=== PATIENT | male | born 1935 | race Caucasian/White ===

== ENCOUNTER → 2017-04-03 12:00 | Outpatient (CLI) | payer MEDICARE, SELFPAY ==
[2017-04-03] MEDS: 0.9% Normal Saline 1,000 ML 999 ML IV ×2 (12:17→13:27)
[2017-04-03 12:37] VITALS: BP 132/89; PULSE 62; RESP 18; TEMP 36.8; O2SAT 95; BMI 21.7
== END ==
PROVIDERS: Family Provider Family Medicine Geriatric Medicine; PCP Family Medicine Geriatric Medicine; Visit Provider Family Medicine Geriatric Medicine
DX: E86.0 Dehydration (principal); I95.1 Orthostatic hypotension; R82.99 Other abnormal findings in urine
CPT/HCPCS: 96360; 96361; 87086; J7030; A4216

== ENCOUNTER → 2017-04-29 09:00 | Outpatient (CLI) | payer MEDICARE, SELFPAY | PROVIDERS: Family Provider Family Medicine Geriatric Medicine; PCP Family Medicine Geriatric Medicine; Visit Provider Surgery | DX: Z01.818 Encounter for other preprocedural examination (principal); E07.9 Disorder of thyroid, unspecified ==

== ENCOUNTER 2017-05-13 11:00 | Outpatient (RCR) | payer MEDICARE, SELFPAY ==
--- NOTE | 2017-04-20 09:04 | HP.PTEVAL ---
Patient's Visit Information KAELYN CONTRERAS is a 81 year old M referred to Physical Therapy by Gerson NYE with a diagnosis of Gait difficulty, R foot drop. Date of Evaluation: 04/15/17 Physical Therapist: Corona Galo - Visit Plan Frequency: 2-3x /Week Duration: 4 Weeks Plan: Start with static/dynamic balance progressions, functional strengthening of BLEs. Anterior tib strengthening with quick stretch, possible use of FES to activate anterior tib. - Subjective Subjective: Pt. is here today for his initial evaluation with diagnosis of gait difficulty and R foot drop. Pt. is a plesant 81 y.o. male who reports falling backwars down his stairs at his [place] in [place]. Pt. reports having occassional R sided LBP, but minimal. Pt. has reported having 3 falls in the past 2 months, I did not get hurt though. Pt. does not ambulate with an AD. Pt. reports noticing increased R foot drop, but reports it has been getting worse over the past 3-4 years. Pt. continues to belong to [employer] and does walking/cardio equipment. Pt. is concerned about increased falls and would like to work on improving balance. Pt. denies N/T in either LE, but has marked weakness in his R anterior tibialis. - Pain R sided lumbar spine Pain Intensity (Out of 10): 2 Pain Intensity Range: 0, 3 - Objective POSTURE: Pt. has generalized flexed posture in stance. Pt. has equal wt.shift in stance. Pt. had reduced lumbar lordosis, equal iliac crest heights. PALPATION: Pt. has mild increase in symptoms of R side of his lumbar spine, minimal. Pt. has no symptoms with rest of palpation. NEUROLOGICAL: Pt. reports normal sensation to light and sharp touch throughout bilateral LEs. Pt. has 2+ bilat achilles DTR, unable to elicit R achilles DTR, 2+ L achilles DTR. Pt. is able to rise on toes with balance aide, unable to complete DF with RLE for wt. shifting to heels. ROM: LUMBAR SPINE: flexion min loss NE, ext mod loss NE, SB min/mod loss bilat NE, rotation min/mod loss NE bilat. Pt. has tight HS bilaterally, tight hip flexor bilaterally. Normal hip ROM throughout. MMT: LLE- ankle 5/5 throughout; knee- 5/5 throughout; hip- flexion 4+/5, and 4/5, ext 4+/5. RLE_ PF 4+/5, DF 1/5 (no activitation with tapping or FES); knee- ext 4+/5, flexion 4+/5; hip- flexion 4/5, abd 4/5, ext 4/5. Core strength- poor. GAIT: Pt. ambulates without AD. He has marked weakness with controlled foot during rocker moment from heel strike to flat foot on R side, no issues with L side. Pt. has proper foot clearance , but has exaggerated hip flexion to compensate. Pt. has flexed posture throughout. Decreased step length and methodically with pattern. STAIRS: Pt. completes with 2 HR with reciprocal pattern, but has marked functional weakness with descending. - Special Tests L/S Slump test left side: Negative L/S Slump test right side: Negative L/S Left Straight Leg Raise: Negative L/S Right Straight Leg Raise: Negative Lumbar Standing: Flexion - Mechanical Response: No effect Lumbar Standing: Flexion - Symptoms During Testing: No effect Lumbar Standing: Flexion - Symptoms After Testing: No effect Lumbar Standing: Extension - Mechanical Response: No effect Lumbar Standing: Extension - Symptoms During Testing: No effect Lumbar Standing: Extension - Symptoms After Testing: No effect Lumbar Standing: Right Side Glides - Mechanical Response: No effect Lumbar Standing: Right Side [place] - Symptoms During Testing: No effect Lumbar Standing: Right Side [place] - Symptoms After Testing: No effect Lumbar Standing: Left Side [place] - Mechanical Response: No effect Lumbar Standing: Left Side [place] - Symptoms During Testing: No effect Lumbar Standing: Left Side [place] - Symptoms After Testing: No effect - Balance Scores Functional Gait Assessment Score: 13 % Disability: 56.6700 CATSIB Score (Max score 120 seconds): 39 - Goals Goal 1:: Pt. to be I with HEP. Goal Time Frame: 4-6 Weeks Goal 2:: Pt. to have increased R anterior tib MMT to 3/5 to reduce risk for catching foot with gait. Goal Time Frame: 4-6 Weeks Goal 3:: Pt. to have increased BLE strength by 1/2 grade of all effected musculature to increase stability with all functional mobility. Goal Time Frame: 4-6 Weeks Goal 4:: Pt. to ambulate unlimited distances without LOB without use of AD allowing for increasd stability with all fucntional mobility. Goal Time Frame: 4-6 Weeks Goal 5:: Pt. to have improved FGA to 21/30 indicating reduced risk for future falls. - Rehabilitation Potential Physical Therapy Diagnosis: Pt. has signs and symptoms of gait difficulty and distal RLE weakness resulting in R foot drop. Pt. reports increased falls over the past 3-4 months and has increased weakness in R foot. He would benefit from PT to increase stability with gait and improve stability during dyanmic and static balance. Pt. may need an AFO of R foot/ankle to improve foot clearanc with gait, pt. declined at this point in time. Rehabilitation Potential: Good - Anticipated Interventions Patient/Client Instruction: Educate patient on: Condition, Plan of Care, Risk Factors, Benefits of Fitness Program For the Purpose of:: To improve health and function, To foster healthy habits, To improve decision making, To facilitate caregiver knowledge, To improve self management, To prevent re-injury, To improve ability to perform tasks related to life management, To improve tolerance to ADL's Therapeutic Exercise to Include: Strength training, Power training, Endurance training, Balance training, Postural training, Flexibilty training, Gait and locomotor training, Passive ROM, Active ROM For the Purpose of:: To decrease pain, To decrease swelling/inflammation, To increase ROM, To improve nutrient delivery to tissue, To increase oxygenation perfusion, To improve muscle performance and motor function, To improve ability to perform ADL's, To increase tolerance to activity/condition/position, To improve performance and independence with ADL's, To improve gait and locomotor functions, To improve health of tissue, To decrease soft tissue restriction, To increase flexibility/ROM, To improve endurance, To improve balance, To improve safety with gait Other electric stimulation: Yes - FES/sri lankan to ant tib For the Purpose of:: To improve health of tissue, Other Other: promote muscle activation Thank you for the opportunity to evaluate your patient. For Medicare and Medicare HMO plans, please review the plan of care and approve it. It will need to be FAXED BACK to us at [phone] for Medicare purposes. Please let me know if there are questions or concerns regarding this plan of care. Physician Signature: Date:
--- NOTE | 2017-05-18 12:53 | HP.PTREVAL_ITS ---
Gerson Jorgensen DR.[email or web address] It has been my pleasure to treat KAELYN CONTRERAS over the last 9 visits for Gait difficulty, R foot drop. Please see the progress note below for an update on the physical therapy plan of care! Subjective: Pt. reports I am doing pretty well. Pt. reports no falls since starting PT. Pt. reprots increased mobility with active DF while sitting. Pt. reports constant R sided LBP that gets worse at times, but it is not too bad. Pt. reports being HEP compliant at home. Objective/Function: Pt. is able to ambulate independently. Pt. does have noticeable decreased control with R DF, but has imrpoved, regresses with fatigue. Pt. reprots being compliant with all exercises at home. FGA- 18/30- difficulty with eyes closed. RLE- ankle- DF 3/5, PF 4+/5; knee- ext 5-/5, flexion 5-/5; hip- flexion 4/5, abd 4/5, ext 4+/5. LLE- ankle 5/5 throughout; knee- ext 5/5, flexion 5/5; hip- flexion 4/5, abd 4/5, ext 4+/5. Core strength - Poor+. Pt. contiunes to have flexed posture with gait and stnaidng with R lateral lean. Pt. has improved balance, but contiunes to have difficulty with controlling R ankld DF with walking. Plan Plan: Pt. to trial exercises on own for 1-2 weeks to determin if he is able to self manage. Pt. to follow up with PT if unable. Pt. consents. Goals Goal 1:: Pt. to be I with HEP. Goal Time Frame: 4-6 Weeks Goal Progress: Goal Met Goal 2:: Pt. to have increased R anterior tib MMT to 3/5 to reduce risk for catching foot with gait. Goal Time Frame: 4-6 Weeks Goal Progress: Goal Met Goal 3:: Pt. to have increased BLE strength by 1/2 grade of all effected musculature to increase stability with all functional mobility. Goal Time Frame: 4-6 Weeks Goal Progress: Goal Met Goal 4:: Pt. to ambulate unlimited distances without LOB without use of AD allowing for increasd stability with all fucntional mobility. Goal Time Frame: 4-6 Weeks Goal Progress: Goal Met Goal 5:: Pt. to have improved FGA to 21 indicating reduced risk for future falls. Goal Progress: Progressing Anticipated Interventions Patient/Client Instruction: Educate patient on: Condition, Plan of Care, Risk Factors, Benefits of Fitness Program For the Purpose of:: To improve health and function, To foster healthy habits, To improve decision making, To facilitate caregiver knowledge, To improve self management, To prevent re-injury, To improve ability to perform tasks related to life management, To improve tolerance to ADL's Therapeutic Exercise to Include: Strength training, Power training, Endurance training, Balance training, Postural training, Flexibilty training, Gait and locomotor training, Passive ROM, Active ROM For the Purpose of:: To decrease pain, To decrease swelling/inflammation, To increase ROM, To improve nutrient delivery to tissue, To increase oxygenation perfusion, To improve muscle performance and motor function, To improve ability to perform ADL's, To increase tolerance to activity/condition/position, To improve performance and independence with ADL's, To improve gait and locomotor functions, To improve health of tissue, To decrease soft tissue restriction, To increase flexibility/ROM, To improve endurance, To improve balance, To improve safety with gait Other electric stimulation: Yes - FES/maldivian to ant tib For the Purpose of:: To improve health of tissue, Other Other: promote muscle activation Please do not hesitate to contact me at [phone] by phone or Fax: if you have questions or concerns regarding this new plan of care! Sincerely, Corona Galo
--- NOTE | 2017-10-06 07:50 | HP.PT.NRP ---
HP - Discharge Summary (1) - Patient Information KAELYN CONTRERAS was seen in my office for initial evaluation on 04/15/17. The following Plan of Care was established for this patient: Initial Frequency: 2-3x /Week Initial Duration: 4 Weeks - Anticipated Interventions Patient/Client Instruction: Educate patient on: Condition, Plan of Care, Risk Factors, Benefits of Fitness Program For the Purpose of:: To improve health and function, To foster healthy habits, To improve decision making, To facilitate caregiver knowledge, To improve self management, To prevent re-injury, To improve ability to perform tasks related to life management, To improve tolerance to ADL's Therapeutic Exercise to Include: Strength training, Power training, Endurance training, Balance training, Postural training, Flexibilty training, Gait and locomotor training, Passive ROM, Active ROM For the Purpose of:: To decrease pain, To decrease swelling/inflammation, To increase ROM, To improve nutrient delivery to tissue, To increase oxygenation perfusion, To improve muscle performance and motor function, To improve ability to perform ADL's, To increase tolerance to activity/condition/position, To improve performance and independence with ADL's, To improve gait and locomotor functions, To improve health of tissue, To decrease soft tissue restriction, To increase flexibility/ROM, To improve endurance, To improve balance, To improve safety with gait Other electric stimulation: Yes - FES/lao to ant tib For the Purpose of:: To improve health of tissue, Other Other: promote muscle activation This patient was last seen in our office 05/13/17. Pertinent comments regarding their Physical therapy will appear below: Pt. was seen for his gait difficulty in PT. Pt. 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 Pt. progressed with ankle strengthening and balance activities. He was to trial on own for 1-2 weeks and follow up with PT if needed. Pt. has not returned to PT at this point in time and will be DC from PT. At this point I will be discontinuing this patient from physical therapy. I would be happy to see this patient again in the future if found appropriate by the physician. Thank you! Corona Galo
== END 2017-05-13 19:00 | disposition home or self-care (01) ==
LOC: PT 11:00
PROVIDERS: Family Provider Family Medicine Geriatric Medicine; PCP Family Medicine Geriatric Medicine; Visit Provider Family Medicine Geriatric Medicine
DX: M21.379 Foot drop, unspecified foot (principal); R26.9 Unspecified abnormalities of gait and mobility
CPT/HCPCS: 97110; 97162

== ENCOUNTER → 2017-05-18 15:13 | Outpatient (CLI) | payer MEDICARE, SELFPAY ==
--- NOTE | 2017-05-18 16:39 | RAD_ITS ---
STUDY: X-RAY - ABDOMEN/PELVIS REASON FOR EXAM: Male, 82 years old. Pain TECHNIQUE: Single AP view of the abdomen / pelvis. COMPARISON: None. FINDINGS: Normal visualized lung bases. There is a moderate amount of colonic fecal material. There is no demonstrated free abdominal air. The visualized liver, spleen and kidneys are grossly normal in size and morphology. Degenerative findings of the hips. Normal soft tissue structures. Normal visualized osseous structures. RAD/Abdomen Single View IMPRESSION: Constipation. Electronically Signed: Law Cho MD at 17:41 EDT , Service support ,
--- NOTE | 2017-05-18 16:45 | RAD_ITS ---
STUDY: X-RAY CHEST REASON FOR EXAM: Male, 82 years old. COUGH TECHNIQUE: Frontal and lateral views of the chest. COMPARISON: 02.17.17 FINDINGS: Chronic appearing increased interstitial lung markings. There is no demonstrated pleural abnormality. Normal heart size. Normal mediastinum and leann. Normal visualized pulmonary arteries. There is atherosclerotic calcification of the aortic arch with tortuosity. There are diffuse degenerative changes of the visualized thoracic spine. There is degenerative osteoarthritis of the bilateral shoulders. There is no demonstrated abnormality of the visualized soft tissue structures of the upper abdomen. RAD/Chest PA and Lateral IMPRESSION: There are no acute findings. Electronically Signed: Law Cho MD at 17:37 EDT , Service support ,
[2017-05-18 17:22] LABS: Absolute Lymphocyte Count 1.09 X10^3/ul (0.83-4.51); Absolute Neutrophil Count 7.2 X10^3/uL (2.0-7.7); Basophil# 0.01 X10^3/uL; Basophil% 0.1 % (0-1); Hematocrit 35.6 % (40-54); Hemoglobin 11.4 g/dl (13.0-16.5); Lymphocyte # 1.09 X10^3/ul (4.0); Lymphocyte % 11.9 % (19-41); Mean Corpuscular Hgb 31.6 pg (27.0-32.0); Mean Corpuscular Volume 98.6 fL (80-94); Mean Platelet Vol. 11.7 fl (6.2-12.0); Monocyte# 0.88 X10^3/uL; Monocyte% 9.6 % (0-10); Neutrophil # 7.18 X10^3/uL (2.7-7.7); Neutrophil % 78.2 % (47-70); Platelet Count 115 K/mm3 (150-450); RBC Distribution Width CV 15.7 % (11.6-14.6); RBC Distribution Width SD 54.4 fl (35.1-43.9); Red Blood Count 3.61 M/mm3 (4.6-6.2); White Blood Count 9.2 K/mm3 (4.4-11.0)
[2017-05-18 17:26] LABS: POSITIVE COUNT NO; POSITIVE DIFFERENTIAL NO; POSITIVE MORPHOLOGY NO
[2017-05-18 17:50] LABS: AST(SGOT) 16 U/L (15-37); Alanine Aminotransfer ALT/SGPT 14 U/L (16-61); Alkaline Phosphatase 96 U/L (45-117); Anion Gap 8 (5-15); BUN 20 mg/dL (7-18); BUN/Creat Ratio 15.7 RATIO (10-20); Calcium,Total 8.4 mg/dL (8.5-10.1); Chloride 102 mmol/L (98-107); Creatinine, Serum 1.27 mg/dL (0.70-1.30); EST Glomerular Filtration Rate 58 mL/min (>60); Est Glom Filt Rate - Afr Amer 70 mL/min (>60); Globulin 3.1 g/dL (2.2-4.2); Glucose 101 mg/dL (74-106); Protein, Total 6.1 g/dL (6.4-8.2); Sodium Level 139 mmol/L (136-145)
== END ==
PROVIDERS: Family Provider Family Medicine Geriatric Medicine; PCP Family Medicine Geriatric Medicine; Visit Provider Family Medicine Geriatric Medicine
DX: R10.9 Unspecified abdominal pain (principal); R05 Cough; N39.0 Urinary tract infection, site not specified; R53.83 Other fatigue
CPT/HCPCS: 36415; 71046; 74018; 80053; 85025; 87086; 87088

== ENCOUNTER → 2017-05-20 06:43 | Outpatient (CLI) | payer MEDICARE, SELFPAY ==
--- NOTE | 2017-05-20 17:11 | STRESSREP ---
Stress Test Report Pharmacologic myocardial perfusion stress test. 82-year-old with a history of chest pain. Stress protocol: Normal sinus rhythm with a rate of 83 bpm premature atrial complexes noted resting blood pressure is 126/72 meters of mercury. 0.4 mg of adenosine was infused per usual protocol followed by rapid intravenous saline flush injection continuous EKG monitoring was performed. The maximum heart rate attained was 97 bpm which was 70% of maximum predicted heart rate the maximum workload attained was 1 metabolic equivalent. At rest there were no ST or T-wave changes noted to suggest abnormal flow reserve at peak infusion no ST or T-wave changes were noted suggest abnormal flow reserve. No clinical angina was noted. Myocardial perfusion protocol. 11.1 mCi of technetium 99m sestamibi was injected at rest. 0.4 mg regadenoson was infused per usual protocol. At peak infusion 35.0 mCi of technetium 99m sestamibi was injected. Stress images were obtained stress and rest images were reconstructed and compared in the short axis vertical long and horizontal long axis. Gated images were also obtained. Perfusion SPECT analysis: Review of the stress images demonstrate normal uptake of tracer noted in all areas of the myocardium except for small portion of the inferior wall with GI attenuation artifact. The resting images demonstrate a similar patent. No obvious reversibility is noted suggest ischemia. No previous infarct is noted. Gated SPECT analysis: The gated ejection fraction is 47%. Conclusion: Normal pharmacologic myocardial perfusion stress test. Low normal ejection fraction.
== END ==
PROVIDERS: Family Provider Family Medicine Geriatric Medicine; PCP Family Medicine Geriatric Medicine; Visit Provider Nurse Practitioner Family
DX: Z01.818 Encounter for other preprocedural examination (principal); I71.2 Thoracic aortic aneurysm, without rupture; I48.0 Paroxysmal atrial fibrillation; I10 Essential (primary) hypertension; E78.5 Hyperlipidemia, unspecified; R74.8 Abnormal levels of other serum enzymes; R94.31 Abnormal electrocardiogram [ECG] [EKG]
CPT/HCPCS: 78452; 93017; A9500; A4216; J2785

== ENCOUNTER → 2017-05-25 16:05 | Outpatient (CLI) | payer MEDICARE, SELFPAY ==
--- NOTE | 2017-05-25 16:21 | RAD_ITS ---
STUDY: X-RAY CHEST REASON FOR EXAM: Male, 82 years old. Cough and shortness of breath. TECHNIQUE: Frontal and lateral views of the chest. COMPARISON: 05/18/2017. FINDINGS: The lungs are hyperexpanded. There are coarsened interstitial markings suggestive of mild chronic fibrosis. No gross focal infiltrates. No gross effusions. Normal size heart. Normal mediastinum and leann. Normal visualized pulmonary arteries. There is atherosclerotic tortuosity of the aortic arch and descending thoracic aorta. There are diffuse degenerative changes of the visualized thoracic spine. Normal visualized ribs, clavicles, and shoulders. There is no demonstrated abnormality of the visualized soft tissue structures of the upper abdomen. RAD/Chest PA and Lateral IMPRESSION: There are findings consistent with COPD. There is no evidence of acute chest disease. Electronically Signed: Benito Dale MD at 10:44 EDT , Service support ,
[2017-05-25 17:13] LABS: Anion Gap 8 (5-15); BUN 19 mg/dL (7-18); BUN/Creat Ratio 15.1 RATIO (10-20); Calcium,Total 7.6 mg/dL (8.5-10.1); Chloride 102 mmol/L (98-107); Creatinine, Serum 1.26 mg/dL (0.70-1.30); EST Glomerular Filtration Rate 58 mL/min (>60); Est Glom Filt Rate - Afr Amer 71 mL/min (>60); Glucose 106 mg/dL (74-106); Potassium 3.6 mmol/L (3.5-5.1); Sodium Level 138 mmol/L (136-145)
[2017-05-25 17:23] LABS: Absolute Lymphocyte Count 0.48 X10^3/ul (0.83-4.51); Absolute Neutrophil Count 5.2 X10^3/uL (2.0-7.7); Basophil# 0.01 X10^3/uL; Basophil% 0.2 % (0-1); Hemoglobin 10.8 g/dl (13.0-16.5); Lymphocyte # 0.48 X10^3/ul (4.0); Lymphocyte % 7.9 % (19-41); Mean Corp Hgb Conc 31.8 g/gl (32-36); Mean Corpuscular Hgb 30.3 pg (27.0-32.0); Mean Corpuscular Volume 95.5 fL (80-94); Mean Platelet Vol. 10.6 fl (6.2-12.0); Monocyte# 0.39 X10^3/uL; Monocyte% 6.4 % (0-10); Neutrophil # 5.22 X10^3/uL (2.7-7.7); Neutrophil % 85.3 % (47-70); Platelet Count 145 K/mm3 (150-450); RBC Distribution Width CV 15.5 % (11.6-14.6); RBC Distribution Width SD 54.1 fl (35.1-43.9); Red Blood Count 3.56 M/mm3 (4.6-6.2); White Blood Count 6.1 K/mm3 (4.4-11.0)
[2017-05-25 17:24] LABS: Differential Indicated SCAN CRITERIA MET; POSITIVE COUNT NO; POSITIVE DIFFERENTIAL YES; POSITIVE MORPHOLOGY NO
[2017-05-25 17:51] LABS: Differential Comment SCANNED
== END ==
PROVIDERS: Family Provider Family Medicine Geriatric Medicine; PCP Family Medicine Geriatric Medicine; Visit Provider Family Medicine Geriatric Medicine
DX: J18.9 Pneumonia, unspecified organism (principal); R68.83 Chills (without fever)
CPT/HCPCS: 36415; 71046; 80048; 85025; 87633

== ENCOUNTER 2017-06-02 11:27 | Inpatient (IN) | payer MEDICARE, SELFPAY ==
[2017-06-02] VITALS (15 sets, daily range): BP systolic 119–141; BP diastolic 68–101; PULSE 53–99; RESP 18–32; TEMP 36.4–36.7; O2SAT 93–99; BMI 22.6; BMI 23.1; BMI 23.2
--- NOTE | 2017-06-02 11:30 | RAD_ITS ---
STUDY: X-RAY CHEST REASON FOR EXAM: Male, 82 years old. Productive cough. He got off any of the right lower lobe and hypoxia. TECHNIQUE: Single frontal view of the chest. COMPARISON: May 25, 2017 FINDINGS: The patient has developed opacities in the right upper lobe, right lower lobe and left lower lobe. These findings are compatible with pneumonia. There is a small right pleural effusion. There is stable cardiomegaly. Normal mediastinum and leann. Normal visualized pulmonary arteries. There is aortic tortuosity with calcification unchanged. Normal visualized thoracic spine. Normal visualized ribs, clavicles, and shoulders. There is no demonstrated abnormality of the visualized soft tissue structures of the upper abdomen. RAD/Chest 1 View (Portable) IMPRESSION: Stable cardiomegaly. Interval development of opacities in the right upper lobe, right lower lobe and left lower lobe compatible with pneumonia. Electronically Signed: Nick Alvarado MD at 12:27 EDT , Service support ,
--- NOTE | 2017-06-02 11:30 | EKG12_ITS ---
Test Reason : SOB Blood Pressure : / mmHG Vent. Rate : 069 BPM Atrial Rate : 069 BPM P-R Int : 000 ms QRS Dur : 098 ms QT Int : 482 ms P-R-T Axes : 000 019 023 degrees QTc Int : 516 ms Normal sinus rhythm with Premature atrial complexes Septal infarct , age undetermined Prolonged QT Abnormal ECG Confirmed by NANY MAR, BERYL ([id number]), newspaper editor managing JUAN JOSÉ REYNOLDS ([id number]) on 06/05/2017 11:18:34 AM Referred By: AARON Confirmed By:BERYL AYON MD
[2017-06-02] MEDS: 0.9% Normal Saline 1,000 ML 250 ML IV (11:45)
[2017-06-02] MEDS: Ceftriaxone 1 GM/50 ML BAG IV (11:45)
[2017-06-02] MEDS: Albuterol 2.5 MG/3 ML VIAL.NEB. INHALATION ×2 (11:51)
[2017-06-02] MEDS: Ipratropium/Albuterol Sulfate 3 ML AMPUL.NEB INHALATION ×2 (11:51→19:07)
[2017-06-02 12:03] LABS: Absolute Lymphocyte Count 0.42 X10^3/ul (0.83-4.51); Absolute Neutrophil Count 7.8 X10^3/uL (2.0-7.7); Differential Indicated SCAN CRITERIA MET; Eosinophil# 0.03 X10^3/uL; Eosinophils% 0.3 % (0-5); Hematocrit 32.8 % (40-54); Hemoglobin 10.5 g/dl (13.0-16.5); Lymphocyte # 0.42 X10^3/ul (4.0); Lymphocyte % 4.7 % (19-41); Mean Corpuscular Hgb 31.2 pg (27.0-32.0); Mean Corpuscular Volume 97.3 fL (80-94); Mean Platelet Vol. 10.6 fl (6.2-12.0); Monocyte# 0.73 X10^3/uL; Monocyte% 8.1 % (0-10); Neutrophil # 7.79 X10^3/uL (2.7-7.7); Neutrophil % 86.5 % (47-70); POSITIVE COUNT NO; POSITIVE DIFFERENTIAL YES; POSITIVE MORPHOLOGY NO; Platelet Count 252 K/mm3 (150-450); RBC Distribution Width CV 16.2 % (11.6-14.6); RBC Distribution Width SD 54.2 fl (35.1-43.9); Red Blood Count 3.37 M/mm3 (4.6-6.2)
[2017-06-02 12:05] LABS: International Normalized Ratio 1.7; Prothrombin Time (Protime)PT. 20.4 SECONDS (11.7-14.9)
[2017-06-02 12:07] LABS: Partial Thromboplast Time 40.5 Seconds (24.1-36.2)
[2017-06-02 12:11] LABS: ALB/GLOB Ratio 0.7 RATIO (0.9-2.4); AST(SGOT) 55 U/L (15-37); Alanine Aminotransfer ALT/SGPT 91 U/L (16-61); Albumin, Serum 2.7 g/dL (3.2-5.0); Alkaline Phosphatase 159 U/L (45-117); Anion Gap 5 (5-15); BUN 21 mg/dL (7-18); BUN/Creat Ratio 19.3 RATIO (10-20); Calcium,Total 8.4 mg/dL (8.5-10.1); Chloride 105 mmol/L (98-107); Creatinine, Serum 1.09 mg/dL (0.70-1.30); EST Glomerular Filtration Rate 69 mL/min (>60); Est Glom Filt Rate - Afr Amer 83 mL/min (>60); Estimated Creatinine Clearance 56.02 ml/min; Globulin 3.7 g/dL (2.2-4.2); Glucose 103 mg/dL (74-106); Potassium 4.4 mmol/L (3.5-5.1); Protein, Total 6.4 g/dL (6.4-8.2); Sodium Level 140 mmol/L (136-145)
[2017-06-02 12:16] LABS: Base Excess 1 mmol/L (-2 to +2); Bicarbonate 24.5 mmol/L (22-26); Blood Gas Specimen Type ART; O2 Delivery Device Nasal Can; PO2 98 mmHG (75-100); SITE R Brachial; SO2 98 % (95-99); Time Given 1209; Total Carbon Dioxide 25 mmol/L; pH 7.47 (7.35-7.45)
[2017-06-02 12:40] LABS: Lactic Acid 1.7 mmol/L (0.4-2.0)
--- NOTE | 2017-06-02 12:47 | ED.VISSUMM ---
- ER Visit Summary Date of Service: 06/02/17 Chief Complaint: Hypotension, hypoxia pneumonia noted on outpatient CAT scan History of Present Illness: The patient is a 82 M who was seen at Dr. Mcgregor's office. In light of his vital signs CAT scan report he was brought immediately to the emergency department. He is not alert but he is oriented. He complains of a productive cough of gold colored sputum . He does report shortness of breath, dyspnea on exertion and generalized weakness. He was recently diagnosed with influenza B and treated with Tamiflu. He was diagnosed with influenza A in January 2017. He had a 2 day stay for UTI at [facility] according to and daughter. and daughter were the main informants. Dr. Pyle's nurse called prior to his arrival and stated his blood pressure was 86/42, pulse ox 84% on room air. Per old records he has his hypertension, gout, hypothyroidism and abdominal aortic aneurysm. He apparently has a dysrhythmia as well. 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 Physical Examination: Vital signs in the department reveal a blood pressure 121/82 temperature 98 heart rate of 57 respiratory to 30 and pulse ox 98% on 3 L. His pulse ox on room air was 85%. He appears pale ill cyanotic and cachectic. Daughter states he has had a 60 pound weight loss. There is no history of night sweats. His major complaint is weakness and trouble breathing. HEENT exam is remarkable dry mucosa. Lungs reveal wheezing throughout egophony right lower lobe equivocal egophony left lower lobe posteriorly. Heart is regular without murmur, gallop or rub. Abdomen is scaphoid with a palpable/pulsatile mass consistent with an abdominal aortic aneurysm that measures approximately 4 cm. There is no asymmetry, swelling, discoloration, leg vein distention, palpable cords or tenderness along the distribution of the deep venous system. He is not alert but he is oriented. Neuro exam is nonfocal. Test Results: EKG sinus rhythm first degree AV block with PACs. Chest x-ray reveals multilobar bilateral pneumonia. White count is normal with 87 segs. H&H 10.5 and 32.8. Electronic panel is unremarkable. Hepatic profile reveals slight elevation in ALT and AST of 91 and 55. INR is 1.7 and PTT is 40.5. ABG on 3 L reveals a respiratory alkalosis with increased AA gradient. PH 7.47, PCO2 34, P a 02 98 and bicarb 25.5 with a 90% saturation on 3 L. White count on May 25 was 6.1 with normal differential. Creatinine is 1.26 with a GFR 58. Emergency Department Course and Treatment: Patient received 500 cc bolus since he had a reported hypotensive episode at Dr. Ruvalcaba'jb office. He has not been hypotensive his entire stay at the time of this dictation 1255. Was treated with DuoNeb and albuterol aerosols. Since clinically he has pneumonia and CAT scan from outside facility revealed pneumonia he was initially treated with Rocephin and azithromycin. He did receive 15 mg/kg of vancomycin for post influenza pneumonia since there is increased incidence/risk of MRSA. Treatment Plan: She will require admission to the hospital. Based on present vital signs recommend PCU admission; concern patient may deteriorate since he has multilobar bilateral pneumonia and was hypotensive. Will discuss with hospitalist for possible PCU stepdown admission. Disposition: Full admission to the hospital Impression: 1. Respiratory failure with hypoxia 2. Post influenza community acquired pneumonia multilobar 3. Bronchospasm secondary #2 4. Chronic anemia 5. History of hypothyroidism 6. History of known abdominal aortic aneurysm, 4.[address] report This note was generated with [employer] dictation software. It may contain incorrect words, spelling, and punctuation that were not noted in review of the chart prior to signing ED Disposition - Plan for ED Patient: Chief Complaint: Hypotension Referrals: Gerson Jorgensen Chi, MD [Primary Care Provider] -
--- NOTE | 2017-06-02 12:57 | CM.ED ---
CM Assessment: Patient's and daughter at the bedside, agree to interview. Patient appears to be sleeping and did not participate in this interview. Patient's daughter states that Dr. Jorgensen told them the patient would go to transitional care after discharge from the hospital. Home: Patient lives in a one story home with his . DME: None. No home oxygen. No CPAP. Home Health/Aides: Patient has never had HHS / Aide services. Patient drives some, but none since he's been sick. Advance Directives: Patient's states the patient does have a living will and POA. I do not see these in the [facility]. Patient's states that she is the medical POA. PCP: Gerson Jorgensen Specialists: Dayne Patient is also seeing a baby formula worker at [facility] for an aneurysm that is not big enough to operate on yet. They are unsure of his name at this time. I explained to the family that PT/OT will evaluate the patient and social work will discuss custodial placement with them further, likely tomorrow. Family states their first choice is TCU and they do not have a second choice at this time. We want him in TCU, the daughter reiterated. CM/SW will continue to follow for discharge planning.
--- NOTE | 2017-06-02 12:58 | ED.DCSUM_ITS ---
- ER Visit Summary Date of Service: 06/02/17 Chief Complaint: Hypotension, hypoxia pneumonia noted on outpatient CAT scan History of Present Illness: The patient is a 82 M who was seen at Dr. Mcgregor's office. In light of his vital signs CAT scan report he was brought immediately to the emergency department. He is not alert but he is oriented. He complains of a productive cough of gold colored sputum . He does report shortness of breath, dyspnea on exertion and generalized weakness. He was recently diagnosed with influenza B and treated with Tamiflu. He was diagnosed with influenza A in January 2017. He had a 2 day stay for UTI at [facility] according to and daughter. and daughter were the main informants. Dr. Pyle's nurse called prior to his arrival and stated his blood pressure was 86/42, pulse ox 84% on room air. Per old records he has his hypertension, gout, hypothyroidism and abdominal aortic aneurysm. He apparently has a dysrhythmia as well. 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 Vazquez. Physical Examination: Vital signs in the department reveal a blood pressure 121/ 82 temperature 98 heart rate of 57 respiratory to 30 and pulse ox 98% on 3 L. His pulse ox on room air was 85%. He appears pale ill cyanotic and cachectic. Daughter states he has had a 60 pound weight loss. There is no history of night sweats. His major complaint is weakness and trouble breathing. HEENT exam is remarkable dry mucosa. Lungs reveal wheezing throughout egophony right lower lobe equivocal egophony left lower lobe posteriorly. Heart is regular without murmur, gallop or rub. Abdomen is scaphoid with a palpable/ pulsatile mass consistent with an abdominal aortic aneurysm that measures approximately 4 cm. There is no asymmetry, swelling, discoloration, leg vein distention, palpable cords or tenderness along the distribution of the deep venous system. He is not alert but he is oriented. Neuro exam is nonfocal. Test Results: EKG sinus rhythm first degree AV block with PACs. Chest x-ray reveals multilobar bilateral pneumonia. White count is normal with 87 segs. H& H 10.5 and 32.8. Electronic panel is unremarkable. Hepatic profile reveals slight elevation in ALT and AST of 91 and 55. INR is 1.7 and PTT is 40.5. ABG on 3 L reveals a respiratory alkalosis with increased AA gradient. PH 7.47, PCO2 34, P a 02 98 and bicarb 25.5 with a 90% saturation on 3 L. White count on May 25 was 6.1 with normal differential. Creatinine is 1.26 with a GFR 58. Emergency Department Course and Treatment: Patient received 500 cc bolus since he had a reported hypotensive episode at Dr. Ruvalcaba'jb office. He has not been hypotensive his entire stay at the time of this dictation 1255. Was treated with DuoNeb and albuterol aerosols. Since clinically he has pneumonia and CAT scan from outside facility revealed pneumonia he was initially treated with Rocephin and azithromycin. He did receive 15 mg/kg of vancomycin for post influenza pneumonia since there is increased incidence/risk of MRSA. Treatment Plan: She will require admission to the hospital. Based on present vital signs recommend PCU admission; concern patient may deteriorate since he has multilobar bilateral pneumonia and was hypotensive. Will discuss with hospitalist for possible PCU stepdown admission. Disposition: Full admission to the hospital Impression: 1. Respiratory failure with hypoxia 2. Post influenza community acquired pneumonia multilobar 3. Bronchospasm secondary #2 4. Chronic anemia 5. History of hypothyroidism 6. History of known abdominal aortic aneurysm, 4.[address] report This note was generated with [employer] dictation software. It may contain incorrect words, spelling, and punctuation that were not noted in review of the chart prior to signing ED Disposition - Plan for ED Patient: Chief Complaint: Hypotension Referrals: Gerson Jorgensen Chi, MD [Primary Care Provider] -
--- NOTE | 2017-06-02 14:39 | EKG12_ITS ---
Test Reason : SEMENTI Blood Pressure : / mmHG Vent. Rate : 063 BPM Atrial Rate : 056 BPM P-R Int : 000 ms QRS Dur : 100 ms QT Int : 492 ms P-R-T Axes : 000 015 021 degrees QTc Int : 503 ms Atrial fibrillation Septal infarct , age undetermined Prolonged QT Abnormal ECG When compared with ECG of 02-JUN-2017 11:55, MANUAL COMPARISON REQUIRED, DATA IS UNCONFIRMED Confirmed by NANY MAR, BERYL ([id number]), business editor JUAN JOSÉ REYNOLDS ([id number]) on 06/05/2017 12:49:58 PM Referred By: Confirmed By:BERYL AYON MD
[2017-06-02 15:08] LABS: Bacteria 0 SEEN /hpf (None Seen); Mucous, Urine 0 SEEN /hpf (<or=2+)
[2017-06-02 15:09] LABS: Color, Urine Yellow (Yellow); Glucose, Dipstick Normal (Normal); Ketone-Dipstick Negative (Negative); Leukocyte Esterase-Dipstick Negative /ul (Negative); Nitrite-Dipstick Negative (Negative); Occult Blood-Urine 150 /ul (Negative); Protein-Dipstick 30 mg/dl (Negative); Urine Bilirubin Dipstick Negative (Negative); Urine Clarity Clear (Clear); Urine Urobilinogen Normal (Normal)
[2017-06-02 15:32] LABS: Red Blood Cells-Urine 50-100 SEEN /hpf (0-5); Squamous Epithelial Cells - UA 0-5 SEEN /hpf (0-5); White Blood Cells 0-5 SEEN /hpf (0-5)
--- NOTE | 2017-06-02 16:40 | HP.PCM_ITS ---
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 Jorgensen's office for a low BP at 86/42 and a pulse ox of 84% on RA The patient is a 82 year old M with a past medical history of dementia, hypothyroidism, hypertension, chronic atrial fibrillation, COPD and chronic anticoagulation with Eliquis who was sent to the emergency room from Dr. Jorgensen' s office for a pulse ox of 84% on room air and a blood pressure of 86/42. He was diagnosed with influenza B on 05/25/17 and received 5 days of Tamiflu. He also was treated with prednisone, Cedinir and azithromycin. He continues to c/o of a productive cough and his appetite per his has been poor. He has SOB. He denies CP and denies N/V/D/Abd pain. VS at presentation to the ER were temperature 98.0, pulse rate 57, blood pressure 121/82, respiratory rate 30 and he was 98% saturated on 2 L nasal cannula. Chest x-ray shows diffuse patchy infiltrates on the right side with a few infiltrates in the left base. White blood cell count is 9.0 with 86% neutrophils. Hemoglobin is 10.5 and platelet count is 252,000. Coags were obtained but are not very reliable secondary to apixaban. An ABG done on a 3 L nasal cannula shows a pH of 7.47, PCO2 of 34 and a PO2 of 98. Electrolytes are within normal limits and the BUN is 21 with a creatinine of 1.09. AST, ALT and alkaline phosphatase are all mildly elevated at 55, 91 and 159 respectively. The bilirubin is within normal limits. Urine showed 50-100 RBCs per high-power field with 0-5 WBCs. Blood cultures were drawn in the emergency room and a sputum was obtained for Gram stain C&S. He will be admitted to PCU with a diagnosis of CAP...since this is post viral SA PNA is a consideration and since he has dementia aspiration is also in the realm of possibility. He will be continued on Vanco and will start Zosyn and order a ST consult. Past Medical History Past Medical History (Chronic Problems): Chronic Problems (Last Updated 04/20/17 @ 15:56 by Kecia Fernandez) Chronic anticoagulation (Chronic) Abnormal EKG (Chronic) Thoracic aortic aneurysm, without rupture (Chronic) Paroxysmal atrial fibrillation (Chronic) Hyperlipidemia (Chronic) Dementia (Chronic) Hypothyroidism (Chronic) Hypertension (Chronic) Chronic atrial fibrillation (Chronic) Allergies No Known Allergies Allergy (Verified 06/02/17 11:32) Home Medications: Ambulatory Orders Medication Instructions Recorded Allopurinol [Zyloprim] 300 mg PO DAILY 09/23/15 Amiodarone HCl 100 mg PO QHS 09/23/15 Tolterodine Tartrate [Detrol] 2 mg PO QHS 09/23/15 Apixaban [Eliquis] 5 mg PO BID 12/08/16 Cyanocobalamin [Vitamin B12] 1,000 mg PO DAILY 12/08/16 Lisinopril [Zestril] 10 mg PO DAILY 02/17/17 nitroglycerin 0.4 mg sublingual 0.4 mg SUBLINGUAL Q5M PRN 04/08/17 tablet levothyroxine 50 mcg capsule 50 mcg PO QDAY cap 04/15/17 ascorbic acid (vitamin C) 500 mg 500 mg PO QDAY 04/16/17 tablet cholecalciferol (vitamin D3) 1,000 1,000 unit PO ONCE 04/16/17 unit capsule Memantine HCl/Donepezil HCl 1 each PO QHS 04/29/17 [Namzaric 28 mg-10 mg Capsule] Cefdinir 300 mg PO BID 06/02/17 Metoprolol Tartrate 25 mg PO BID 06/02/17 Surgical History: noncontributory Psychiatric History: No pertinent psych hx Lives: Spouse/ Significant Other Smoking Status: Never smoker Tobacco Use: Non-smoker Alcohol: None Drugs: None - *Family History Maternal History Items: No pertinent history Paternal History Items: No pertinent history Review of Systems Constitutional: Reports: Anorexia, Chills, Weakness Eyes: Denies: Redness HEENT: Denies: Difficulty Swallowing - the states he sometimes coughs when eating, Ear Pain, Head Aches, Sore Throat Cardiovascular: Denies: Chest Pain, Edema, Light Headedness, Palpitations Respiratory: Reports: Cough, Shortness of Breath, Sputum production Gastrointestinal: Denies: Abdominal Pain, Diarrhea, Nausea, Vomiting Genitourinary: Denies: Dysuria, Frequency, Hematuria Musculoskeletal: Denies: Joint Pain, Joint Tenderness Skin: Denies: Jaundice, Rash, Wounds Neurological: Reports: Confusion - chronic...he has a hx of dementia. Denies: Focal weakness, Headaches, Seizures Psychiatric: Denies: Anxiety, Depression, Homicidal Ideations, Suicidal Ideations Endocrine: Reports: Change in Body Habitus - has been losing weight over the past year Hematologic/ Lymphatic: Denies: Hx of blood clot VTE Information - Inpt Only VTE Present on Admission: No VTE Mechan Device Prophylaxis: None VTE Pharm Prophylaxis ordered?: No Reason prophylaxis not ordered:: Treatment Not Indicated - he is on Eliquis for CAF Patient Problems: Active and Suspected Problems (Last Updated 04/20/17 @ 15:56 by Kecia Fernandez) Influenza B (Acute) diagnosed 05/25/17 and received 5 days of Tamiflu CAP (community acquired pneumonia) (Acute) Abnormal LFTs (Acute) Microscopic hematuria (Acute) - Physical Exam General: Alert, Cooperative, Confused, - - He is able to answer questions appropriately and also able to follow commands. He is coughing frequently HEENT: Atraumatic, PERRLA, Normocephalic Oral: Dry Mucosa Neck: Supple, No JVD, No Nodes, Trachea Midline Lungs: Rales, Rhonchi - R side and in the left base, - - There is symmetric chest rise. He is mildly tachypneic but has no accessory muscle use. Cardiovascular: Normal S1, Normal S2, No murmurs, Irregular Rate, No Gallop Abdomen: Bowel Sounds Present, Soft, Non Tender, Non-Distended, - - No guarding with palpation Extremities: No clubbing, No cyanosis, No edema, Diminished Peripheral Pulses Skin: No rashes, No breakdown, - - He has a few healing abrasions on the RLE due to a fall.... No periwound erythema, no discharge. Musculoskeletal: Arthritic Changes Neurological: Cranial nerves II-XII grossly intact, Neuro grossly intact Psych/Mental Status: Normal Affect, Appropriate Vital Signs Temp Pulse Resp BP Pulse Ox 97.8 F 99 20 H 123/80 H 95 06/02/17 14:43 06/02/17 14:43 06/02/17 14:43 06/02/17 14:47 06/02/17 14:43 Oxygen Flow Rate (L/min) 2.5 Oxygen Delivery Method Nasal Cannula Weight: 166 lb 0.129 oz Body Mass Index (BMI) 23.1 Laboratory Tests Past 24 Hrs 06/02/17 15:00 Urine Color Yellow Urine Clarity Clear Urine pH 6.0 Ur Specific [place] 1.020 Urine Protein 30 H Urine Glucose (UA) Normal Urine Ketones Negative Urine Occult Blood 150 H Urine Nitrite Negative Urine Bilirubin Negative Urine Urobilinogen Normal Ur Leukocyte Esterase Negative Urine RBC 50-100 SEEN Urine WBC 0-5 SEEN Ur Squamous Epith Cells 0-5 SEEN Urine Bacteria 0 SEEN Urine Mucus 0 SEEN Assessment/Plan Active and Suspected Problems (Last Updated 04/20/17 @ 15:56 by Kecia Fernandez) Influenza B (Acute) diagnosed 05/25/17 and received 5 days of Tamiflu CAP (community acquired pneumonia) (Acute) Abnormal LFTs (Acute) Microscopic hematuria (Acute) Impressions 1. PNA with respiratory insufficiency and hypoxia. Sputum and blood cultures sent. Streptococcal and Legionella antigens in the urine ordered. Start Zosyn and continue with Vancomycin started in the ED. ST eval for swallowing. Check an MRSA nasal swab. 2. acute exacerbation COPD - ATC aerosolized bronchodilators and Budesonide. Wheezing is coarse so no PO of IV steroids at this time 3. Dementia 4. Chronic atrial fibrillation -continue amiodarone and metoprolol for rate control 5. Chronic anticoagulation with Eliquis 6. Recent influenza B-diagnosed for 218 and he received 5 days of Tamiflu 7. Abnormal LFTs 8. Microscopic hematuria 9. History of hypothyroidism 10. Hypertension 11. Urinary incontinence-continue Detrol advanced directives discussed with his and he is DNR CCA with no intubation and no CPR Code Visit Inpatient E&M: 32446 Init Hosp L2
[2017-06-02] MEDS: Lactated Ringers 1,000 ML 75 ML IV (17:14)
[2017-06-02] MEDS: Budesonide Respules 0.5 MG/2 ML AMPUL.NEB. INHALATION (19:07)
[2017-06-02 19:19] LABS: M R Staph aureus DNA By PCR Negative (Negative); Probe Check PASS; Specimen Processing Control PASS
--- NOTE | 2017-06-02 19:20 | NURSING ---
Reviewed and agreed on all charting with Lakshmi Vitale RN
--- NOTE | 2017-06-02 20:55 | PCM.RX.CS ---
Consult Pharmacy has been consulted to manage selected antiobiotic: Vancomycin Type of Consult: New start Suspected Infection: Pneumonia Prior Doses of Antibiotics Received/Current Regimen: Vancomycin 1250mg x1 in ER 06/02/17 at 1400 Labs: Sodium 140 mmol/L (136-145) 06/02/17 11:38 Potassium 4.4 mmol/L (3.5-5.1) 06/02/17 11:38 Chloride 105 mmol/L (98-107) 06/02/17 11:38 Carbon Dioxide 30.0 mmol/L (21.0-32.0) 06/02/17 11:38 Anion Gap 5 (5-15) 06/02/17 11:38 BUN 21 mg/dL (7-18) H 06/02/17 11:38 Creatinine 1.09 mg/dL (0.70-1.30) 06/02/17 11:38 Est GFR (MDRD) Af Amer 83 mL/min (>60) 06/02/17 11:38 Est GFR (MDRD) Non-Af 69 mL/min (>60) 06/02/17 11:38 BUN/Creatinine Ratio 19.3 RATIO (10-20) 06/02/17 11:38 Glucose 103 mg/dL (74-106) 06/02/17 11:38 Microbiology: pending Weight used for dosin.3 kg Estimated Creatinine Clearance: 56ml/min Goal Trough: 15-20 mcg/mL Pharmacy Plan for Drug Dosing: Will start pt on Vancomycin 750mg Q12H, starting 06/03/17 at 0500. Est trough of 17. Trough will be drawn 06/04/17 at 1700 Pharmacy Service will continue to monitor and adjust dosing as required. Follow-Up Labs: Trough Vancomycin Labs to be done on [date and time ordered]: 06/04/17 at 1700
[2017-06-02] MEDS: Piperacil/Tazobactam 3.375 GM/50 ML ML IV (22:47)
[2017-06-02] MEDS: Memantine Hydrochloride 10 MG Tablet PO (22:48)
[2017-06-02] MEDS: Senna/Docusate Sodium 1 Tablet 2 TABLET PO (22:48)
[2017-06-02] MEDS: APIXABAN 5 MG TABLET PO (22:48)
[2017-06-02] MEDS: guaiFENesin 1,200 MG Tablet 1200 MG PO (22:49)
[2017-06-02] MEDS: Donepezil HCl 10 MG Tablet PO (22:49)
[2017-06-02] MEDS: Amiodarone 200 MG Tablet 100 MG PO (22:49)
[2017-06-02] MEDS: Metoprolol Tartrate 25 MG Tablet PO (22:49)
[2017-06-02] MEDS: Famotidine 20 MG Tablet PO (22:49)
[2017-06-03] VITALS (19 sets, daily range): BP systolic 116–168; BP diastolic 69–86; PULSE 48–157; RESP 16–26; TEMP 36.6–36.8; O2SAT 93–96
[2017-06-03] MEDS: Ipratropium/Albuterol Sulfate 3 ML AMPUL.NEB INHALATION ×4 (01:01→18:37)
[2017-06-03] MEDS: Lactated Ringers 1,000 ML 75 ML IV ×2 (04:51→18:07)
[2017-06-03] MEDS: Levothyroxine 50 MCG Tablet PO (06:20)
[2017-06-03] MEDS: Piperacil/Tazobactam 3.375 GM/50 ML ML IV ×3 (06:21→21:29)
[2017-06-03 06:44] LABS: ALB/GLOB Ratio 0.7 RATIO (0.9-2.4); AST(SGOT) 37 U/L (15-37); Alanine Aminotransfer ALT/SGPT 69 U/L (16-61); Albumin, Serum 2.3 g/dL (3.2-5.0); Alkaline Phosphatase 129 U/L (45-117); Anion Gap 8 (5-15); BUN 16 mg/dL (7-18); BUN/Creat Ratio 19.9 RATIO (10-20); Calcium,Total 8.2 mg/dL (8.5-10.1); Chloride 106 mmol/L (98-107); EST Glomerular Filtration Rate 98 mL/min (>60); Est Glom Filt Rate - Afr Amer 119 mL/min (>60); Estimated Creatinine Clearance 75.82 ml/min; Globulin 3.4 g/dL (2.2-4.2); Glucose 103 mg/dL (74-106); Phosphorus 3.3 mg/dL (2.5-4.9); Potassium 4.4 mmol/L (3.5-5.1); Protein, Total 5.7 g/dL (6.4-8.2); Sodium Level 139 mmol/L (136-145)
[2017-06-03 06:54] LABS: Absolute Lymphocyte Count 0.53 X10^3/ul (0.83-4.51); Absolute Neutrophil Count 8.5 X10^3/uL (2.0-7.7); Basophil# 0.01 X10^3/uL; Basophil% 0.1 % (0-1); Eosinophil# 0.04 X10^3/uL; Eosinophils% 0.4 % (0-5); Hematocrit 30.8 % (40-54); Hemoglobin 9.8 g/dl (13.0-16.5); Lymphocyte # 0.53 X10^3/ul (4.0); Lymphocyte % 5.3 % (19-41); Mean Corp Hgb Conc 31.8 g/gl (32-36); Mean Corpuscular Hgb 30.8 pg (27.0-32.0); Mean Corpuscular Volume 96.9 fL (80-94); Mean Platelet Vol. 10.7 fl (6.2-12.0); Monocyte# 0.77 X10^3/uL; Monocyte% 7.8 % (0-10); Neutrophil # 8.52 X10^3/uL (2.7-7.7); Platelet Count 191 K/mm3 (150-450); RBC Distribution Width SD 54.2 fl (35.1-43.9); Red Blood Count 3.18 M/mm3 (4.6-6.2); White Blood Count 9.9 K/mm3 (4.4-11.0)
[2017-06-03 07:02] LABS: Differential Indicated SCAN CRITERIA MET; POSITIVE COUNT NO; POSITIVE DIFFERENTIAL YES; POSITIVE MORPHOLOGY NO
[2017-06-03] MEDS: Budesonide Respules 0.5 MG/2 ML AMPUL.NEB. INHALATION (07:46)
[2017-06-03] MEDS: Allopurinol 300 MG Tablet PO (08:36)
[2017-06-03] MEDS: Ascorbic Acid 500 MG Tablet PO (08:36)
--- NOTE | 2017-06-03 08:41 | NURSING ---
ST EVALUATION PLACED. CHOKING AND WET COUGH WHEN GIVEN AM MEDS WITH SIP OF WATER. LS WET, RHONCI.
--- NOTE | 2017-06-03 09:09 | CASEMGMT ---
Addendum entered by Eboni Coker 06/03/17 13:30: SW spoke with patient letting him know TCU will have a bed for him when he is ready pending insurance approval. His niece was also present and she said she will notify patient's . Plan: TCU when ready and pending insurance approval. Eboni VILLAFUERTE Original Note: Spoke with [facility] post acute referrals and she said they would have a bed for patient in TCU when he is ready. SW to notify family and patient. Eboni VILLAFUERTE
[2017-06-03] MEDS: APIXABAN 5 MG TABLET PO (12:20)
[2017-06-03] MEDS: Memantine Hydrochloride 10 MG Tablet PO (12:21)
[2017-06-03] MEDS: guaiFENesin 1,200 MG Tablet 1200 MG PO (12:21)
[2017-06-03] MEDS: Lisinopril 10 MG Tablet PO (12:21)
[2017-06-03] MEDS: Famotidine 20 MG Tablet PO (12:21)
[2017-06-03] MEDS: Senna/Docusate Sodium 1 Tablet 2 TABLET PO (12:21)
--- NOTE | 2017-06-03 14:18 | PCM.PROGNOTE ---
Patient Problems: Active and Suspected Problems (Last Updated 04/20/17 @ 15:56 by Kecia Fernandez) Influenza B (Acute) diagnosed 05/25/17 and received 5 days of Tamiflu CAP (community acquired pneumonia) (Acute) Abnormal LFTs (Acute) Microscopic hematuria (Acute) Subjective: Day #2 antibiotics-Zosyn and vancomycin Afebrile since admission. Vital signs are stable. Current pulse ox is 96% on 2 L. Heart rate is in the 50s. Telemetry shows sinus rhythm, sinus bradycardia with sinus arrhythmia, PACs and occasional ventricular escape beat. White blood cell count is 9.9 today with 86% neutrophils. Hemoglobin is 9.8 and platelets are within normal limits. Indices are mildly macrocytic and his RDW is increased at 16. Electrolytes are within normal limits and the BUN is 16 today with a creatinine of 0.8, down from 1.09 at admission with hydration. LFT's are trending down. Legionella and streptococcal antigens in the urine were negative. The sputum Gram stain shows 2+ white blood cells and the culture is pending. There are 2+ gram-positive cocci in clusters. MRSA swab was negative. He denies chest pain. He does tell me he is somewhat short of breath. He was sleeping when I entered the room and he has periods of apnea. He is also having Vish-Viramontes respirations. He has no conversational dyspnea. Objective: - Physical Exam General: Alert, Cooperative, Confused, - - He is able to answer questions appropriately and also able to follow commands. The cough is less today. He is more confused. HEENT: Atraumatic, PERRLA, Normocephalic Oral: Dry Mucosa has improved and tongue is moist today Neck: Supple, No JVD, No Nodes, Trachea Midline Lungs:- There is symmetric chest rise. He is having apneic periods with Vish-Viramontes respirations. When he is awake he has no tachypnea and no conversational dyspnea. There is no accessory muscle use. Rhonchi are much improved today. He continues to have crackles mostly in the bases but some in the right midlung posteriorly. Cardiovascular: Normal S1, Normal S2, No murmurs, Irregular Rate, No Gallop Abdomen: Bowel Sounds Present, Soft, Non Tender, Non-Distended, - - No guarding with palpation Extremities: No clubbing, No cyanosis, No edema, Diminished Peripheral Pulses Skin: No rashes, No breakdown, - - He has a few healing abrasions on the RLE due to a fall.... No periwound erythema, no discharge. Musculoskeletal: Arthritic Changes Neurological: Cranial nerves II-XII grossly intact, Neuro grossly intact Psych/Mental Status: Normal Affect, Appropriate - Physical Exam Vital Signs Temp Pulse Resp BP Pulse Ox 98.2 F 53 L 16 124/69 H 96 06/03/17 12:11 06/03/17 12:20 06/03/17 12:11 06/03/17 12:11 06/03/17 12:11 Oxygen Flow Rate (L/min) 2 Oxygen Delivery Method Nasal Cannula Weight: 166 lb 0.129 oz Body Mass Index (BMI) 23.1 Intake and Output for Last 24 Hours 06/01/17 06/02/17 06/03/17 23:59 23:59 23:59 Intake Total 2834 / 2834 1416 / 1416 Output Total 300 / 300 0 / 0 Balance 2534 / 2534 1416 / 1416 Microbiology Past 72 Hours 06/02/17 14:00 Gram Stain - Final Sputum, Expectorated/Coughed 06/03/17 00:19 Legionella Antigen - Final Urine, Clean Catch 06/03/17 00:19 Streptococcus pneumoniae Antigen (M - Final Urine, Clean Catch Laboratory Tests Past 24 Hrs 06/02/17 06/02/17 06/03/17 15:00 17:20 05:50 WBC 9.9 RBC 3.18 L Hgb 9.8 L Hct 30.8 L MCV 96.9 H MCH 30.8 MCHC 31.8 L RDW 16.0 H RDW Differential 54.2 H Plt Count 191 MPV 10.7 Immature Gran % (Auto) 0.400 Neut % (Auto) 86.0 H Lymph % (Auto) 5.3 L [place] % (Auto) 7.8 Eos % (Auto) 0.4 Baso % (Auto) 0.1 Absolute Neuts (auto) 8.5 H Absolute Lymphs (auto) 0.53 L Total Counted Not Reportable Sodium Potassium Chloride Carbon Dioxide Anion Gap BUN Creatinine Estim Creat Clear Calc Est GFR (MDRD) Af Amer Est GFR (MDRD) Non-Af BUN/Creatinine Ratio Glucose Calcium Phosphorus Magnesium Total Bilirubin AST ALT Alkaline Phosphatase Total Protein Albumin Globulin Albumin/Globulin Ratio Urine Color Yellow Urine Clarity Clear Urine pH 6.0 Ur Specific [place] 1.020 Urine Protein 30 H Urine Glucose (UA) Normal Urine Ketones Negative Urine Occult Blood 150 H Urine Nitrite Negative Urine Bilirubin Negative Urine Urobilinogen Normal Ur Leukocyte Esterase Negative Urine RBC 50-100 SEEN Urine WBC 0-5 SEEN Ur Squamous Epith Cells 0-5 SEEN Urine Bacteria 0 SEEN Urine Mucus 0 SEEN MRSA (PCR) Negative 06/03/17 05:50 WBC RBC Hgb Hct MCV MCH MCHC RDW RDW Differential Plt Count MPV Immature Gran % (Auto) Neut % (Auto) Lymph % (Auto) [place] % (Auto) Eos % (Auto) Baso % (Auto) Absolute Neuts (auto) Absolute Lymphs (auto) Total Counted Sodium 139 Potassium 4.4 Chloride 106 Carbon Dioxide 25.0 Anion Gap 8 BUN 16 Creatinine 0.80 Estim Creat Clear Calc 75.82 Est GFR (MDRD) Af Amer 119 Est GFR (MDRD) Non-Af 98 BUN/Creatinine Ratio 19.9 Glucose 103 Calcium 8.2 L Phosphorus 3.3 Magnesium 2.0 Total Bilirubin 0.90 AST 37 ALT 69 H Alkaline Phosphatase 129 H Total Protein 5.7 L Albumin 2.3 L Globulin 3.4 Albumin/Globulin Ratio 0.7 L Urine Color Urine Clarity Urine pH Ur Specific [place] Urine Protein Urine Glucose (UA) Urine Ketones Urine Occult Blood Urine Nitrite Urine Bilirubin Urine Urobilinogen Ur Leukocyte Esterase Urine RBC Urine WBC Ur Squamous Epith Cells Urine Bacteria Urine Mucus MRSA (PCR) Medical Necessity - Tobacco Use Smoking Status: Never smoker Tobacco Use: Non-smoker Assessment/Plan Active and Suspected Problems (Last Updated 04/20/17 @ 15:56 by Kecia Fernandez) Influenza B (Acute) diagnosed 05/25/17 and received 5 days of Tamiflu CAP (community acquired pneumonia) (Acute) Abnormal LFTs (Acute) Microscopic hematuria (Acute) Impressions 1. PNA with respiratory insufficiency and hypoxia. Sputum and blood cultures sent. Streptococcal and Legionella antigens in the urine ordered. Start Zosyn and continue with Vancomycin started in the ED. ST eval for swallowing. Check an MRSA nasal swab. 2. acute exacerbation COPD - ATC aerosolized bronchodilators and Budesonide. Wheezing is coarse so no PO of IV steroids at this time 3. Dementia 4. Chronic atrial fibrillation -continue amiodarone and metoprolol for rate control 5. Chronic anticoagulation with Eliquis 6. Recent influenza B-diagnosed for 218 and he received 5 days of Tamiflu 7. Abnormal LFTs 8. Microscopic hematuria 9. History of hypothyroidism 10. Hypertension 11. Urinary incontinence-continue Detrol 12. Severe oral pharyngeal dysphagia-speech therapist recommends continued n.p.o. status and will continue to work with him daily Continue Zosyn and Vanco and day #2 suspected aspiration pneumonia. Await the results of the sputum culture with 2+ gram-positive cocci in clusters Seroquel at bedtime for advanced directives discussed with his and he is DNR CCA with no intubation and no CPR Code Visit Inpatient E&M: 85519 Subs Hosp L2
[2017-06-03] MEDS: 0.9% NaCl Peripheral Flush Adult/Peds IV ×2 (21:48→23:11)
--- NOTE | 2017-06-03 22:01 | EKG12_ITS ---
Test Reason : EKG CHANGE Blood Pressure : / mmHG Vent. Rate : 062 BPM Atrial Rate : 056 BPM P-R Int : 192 ms QRS Dur : 096 ms QT Int : 490 ms P-R-T Axes : 036 006 -25 degrees QTc Int : 497 ms Sinus bradycardia with Premature supraventricular complexes Nonspecific ST abnormality Prolonged QT Abnormal ECG When compared with ECG of 03-JUN-2017 22:06, MANUAL COMPARISON REQUIRED, DATA IS UNCONFIRMED Confirmed by NANY AMR, BERYL ([id number]), news video editor JUAN JOSÉ REYNOLDS ([id number]) on 06/05/2017 12:48:20 PM Referred By: GALE Confirmed By:BERYL AYON MD
[2017-06-03] MEDS: Metoprolol Tartrate 5 MG/5 ML Vial IV (23:12)
--- NOTE | 2017-06-03 23:55 | EKG12_ITS ---
Test Reason : EKG CHANGE Blood Pressure : / mmHG Vent. Rate : 139 BPM Atrial Rate : 120 BPM P-R Int : 000 ms QRS Dur : 114 ms QT Int : 346 ms P-R-T Axes : 000 051 -09 degrees QTc Int : 526 ms Atrial fibrillation Abnormal ECG When compared with ECG of 02-JUN-2017 14:58, MANUAL COMPARISON REQUIRED, DATA IS UNCONFIRMED Confirmed by NANY MAR, BERYL ([id number]), technical writer and editor JUAN JOSÉ REYNOLDS ([id number]) on 06/05/2017 12:48:38 PM Referred By: GALE Confirmed By:BERYL AYON MD
[2017-06-04] VITALS (23 sets, daily range): BP systolic 99–140; BP diastolic 60–96; PULSE 53–131; RESP 16–24; TEMP 36.4–36.6; O2SAT 91–96
[2017-06-04] MEDS: Piperacil/Tazobactam 3.375 GM/50 ML ML IV (05:15)
[2017-06-04] MEDS: Metoprolol Tartrate 5 MG/5 ML Vial IV (05:39)
[2017-06-04] MEDS: 0.9% NaCl Peripheral Flush Adult/Peds IV ×2 (05:39→22:15)
[2017-06-04] MEDS: Ipratropium/Albuterol Sulfate 3 ML AMPUL.NEB INHALATION ×3 (06:56→20:35)
[2017-06-04] MEDS: Budesonide Respules 0.5 MG/2 ML AMPUL.NEB. INHALATION ×2 (06:56→20:35)
--- NOTE | 2017-06-04 07:00 | NURSING ---
This RN reviewed charting completed by psychiatric nursing assistant Romero Nesbitt and agrees with charting.
[2017-06-04] MEDS: Lactated Ringers 1,000 ML 75 ML IV ×2 (09:11→22:15)
--- NOTE | 2017-06-04 09:56 | NURSING ---
SPOKE TO ST, STATES CAN ONLY HAVE MEDS CRUSHED IN APPLESAUCE
[2017-06-04] MEDS: Famotidine 20 MG Tablet PO ×2 (10:12→22:08)
[2017-06-04] MEDS: Amiodarone 200 MG Tablet 100 MG PO (10:12)
[2017-06-04] MEDS: Metoprolol Tartrate 25 MG Tablet PO ×2 (10:12→23:48)
[2017-06-04] MEDS: Allopurinol 300 MG Tablet PO (10:13)
[2017-06-04] MEDS: Memantine Hydrochloride 10 MG Tablet PO ×2 (10:13→22:08)
[2017-06-04] MEDS: APIXABAN 5 MG TABLET PO ×2 (10:13→22:08)
[2017-06-04] MEDS: Ascorbic Acid 500 MG Tablet PO (10:13)
--- NOTE | 2017-06-04 10:18 | CASEMGMT ---
Addendum entered by Eboni Coker 06/04/17 10:38: SW called patient's and left her a voice mail letting her know patient was approved to go to [facility] T[facility] when ready. Plan: [facility] T[facility] when ready. Eboni VILLAFUERTE Original Note: Patient has been approved by insurance to go to [facility] T[facility]. FRAN will notify physician and family. Plan: [facility] TCU under skilled level of care when ready. Eboni VILLAFUERTE
[2017-06-04 17:54] LABS: Vancomycin, Trough Level 8.4 ug/mL (5.0-15.0)
--- NOTE | 2017-06-04 20:47 | PN_ITS ---
Patient Problems: Active and Suspected Problems (Last Updated 04/20/17 @ 15:56 by Kecia Fernandez) Influenza B (Acute) diagnosed 05/25/17 and received 5 days of Tamiflu CAP (community acquired pneumonia) (Acute) Abnormal LFTs (Acute) Microscopic hematuria (Acute) Subjective: AFebrile Vital signs stable, 96% saturated on 2 L nasal cannula today with a respiratory rate of 18. Intake and output are not accurate. I suspect the patient is incontinent and they are unable to measure the output. Urine culture has less than 1000 colonies of Staphylococcus species. Sputum had 2+ white blood cells and no Haemophilus, Streptococcus pneumoniae, beta-hemolytic strep or staph aureus. Blood cultures are no growth. Seen and evaluated by speech therapy again today and they continue to recommend an n.p.o. status with the exception of medication crushed in applesauce. Modified barium swallow was recommended. Objective: - Physical Exam General: Alert, Cooperative, Confused, - He is able to answer questions appropriately and also able to follow commands. The cough hs improved since admission. He is pleasant and not having any behavioral issues today HEENT: Atraumatic, PERRLA, Normocephalic Oral: Dry Mucosa has improved and tongue is moist today Neck: Supple, No JVD, No Nodes, Trachea Midline Lungs:- There is symmetric chest rise. He is having apneic periods with Vish- Viramontes respirations. When he is awake he has no tachypnea and no conversational dyspnea. There is no accessory muscle use. Rhonchi are much improved today. He continues to have crackles mostly in the bases but some in the right midlung posteriorly. Cardiovascular: Normal S1, Normal S2, No murmurs, Irregular Rate, No Gallop Abdomen: Bowel Sounds Present, Soft, Non Tender, Non-Distended, - - No guarding with palpation Extremities: No clubbing, No cyanosis, No edema, Diminished Peripheral Pulses Skin: No rashes, No breakdown, - - He has a few healing abrasions on the RLE due to a fall.... No periwound erythema, no discharge. Musculoskeletal: Arthritic Changes Neurological: Cranial nerves II-XII grossly intact, Neuro grossly intact Psych/Mental Status: Normal Affect, Appropriate - Physical Exam Vital Signs Temp Pulse Resp BP Pulse Ox 97.8 F 57 L 18 140/84 H 96 06/04/17 17:30 06/04/17 18:53 06/04/17 17:30 06/04/17 17:30 06/04/17 17:30 Oxygen Flow Rate (L/min) 2 Oxygen Delivery Method Nasal Cannula Weight: 166 lb 0.129 oz Body Mass Index (BMI) 23.1 Intake and Output for Last 24 Hours 06/02/17 06/03/17 06/04/17 23:59 23:59 23:59 Intake Total 2834 / 2834 1416 / 1416 2957.5 / 2957.5 Output Total 300 / 300 0 / 0 550 / 550 Balance 2534 / 2534 1416 / 1416 2407.5 / 2407.5 Microbiology Past 72 Hours 06/02/17 14:00 Gram Stain - Final Sputum, Expectorated/Coughed Respiratory Culture - Final 06/02/17 15:00 Urine Culture - Preliminary Urine, Clean Catch Staphylococcus species 06/03/17 00:19 Legionella Antigen - Final Urine, Clean Catch 06/03/17 00:19 Streptococcus pneumoniae Antigen (M - Final Urine, Clean Catch Laboratory Tests Past 24 Hrs 06/04/17 17:06 Vancomycin Trough 8.4 Medical Necessity - Tobacco Use Smoking Status: Never smoker Tobacco Use: Non-smoker Assessment/Plan Active and Suspected Problems (Last Updated 04/20/17 @ 15:56 by Kecia Fernandez) Influenza B (Acute) diagnosed 05/25/17 and received 5 days of Tamiflu CAP (community acquired pneumonia) (Acute) Abnormal LFTs (Acute) Microscopic hematuria (Acute) Day #3 Zosyn and vancomycin Impressions 1. PNA with respiratory insufficiency and hypoxia. Sputum and blood cultures negative. Streptococcal and Legionella antigens in the urine negative. Start Zosyn and continue with Vancomycin started in the ED. ST eval for swallowing. MRSA nasal swab was negative. Pneumonia is most likely due to aspiration 2. acute exacerbation COPD - ATC aerosolized bronchodilators and Budesonide. 3. Dementia 4. Chronic atrial fibrillation -continue amiodarone and metoprolol for rate control 5. Chronic anticoagulation with Eliquis 6. Recent influenza B-diagnosed for 05/27/17 and he received 5 days of Tamiflu 7. Abnormal LFTs 8. Microscopic hematuria 9. History of hypothyroidism 10. Hypertension 11. Urinary incontinence-continue Detrol 12. Severe oral pharyngeal dysphagia-speech therapist recommends continued n.p.o. status and will continue to work with him daily Continue Seroquel for Discontinue vancomycin and continue Zosyn Modified barium swallow 06/[address] able to work in and then will need to discuss with the patient and his plans for feeding going forward. PEG? Palliative? Recheck lab in the AM advanced directives discussed with his and he is DNR CCA with no intubation and no CPR Code Visit Inpatient E&M: 28140 Subs Hosp L2
[2017-06-04] MEDS: Donepezil HCl 10 MG Tablet PO (22:04)
[2017-06-05] VITALS (30 sets, daily range): BP systolic 106–147; BP diastolic 65–113; PULSE 96–151; RESP 17–33; TEMP 36.4–37.5; O2SAT 90–98
[2017-06-05] MEDS: 0.9% NaCl Peripheral Flush Adult/Peds IV (02:16)
[2017-06-05] MEDS: Metoprolol Tartrate 5 MG/5 ML Vial IV ×2 (02:25→21:56)
[2017-06-05] MEDS: Levothyroxine 50 MCG Tablet PO (05:11)
[2017-06-05 06:48] LABS: Absolute Lymphocyte Count 0.72 X10^3/ul (0.83-4.51); Absolute Neutrophil Count 9.2 X10^3/uL (2.0-7.7); Basophil# 0.01 X10^3/uL; Basophil% 0.1 % (0-1); Eosinophil# 0.06 X10^3/uL; Eosinophils% 0.6 % (0-5); Hematocrit 34.7 % (40-54); Hemoglobin 11.2 g/dl (13.0-16.5); Lymphocyte # 0.72 X10^3/ul (4.0); Lymphocyte % 6.7 % (19-41); Mean Corp Hgb Conc 32.3 g/gl (32-36); Mean Corpuscular Hgb 30.7 pg (27.0-32.0); Mean Corpuscular Volume 95.1 fL (80-94); Mean Platelet Vol. 10.3 fl (6.2-12.0); Monocyte# 0.79 X10^3/uL; Monocyte% 7.3 % (0-10); Neutrophil # 9.21 X10^3/uL (2.7-7.7); Platelet Count 262 K/mm3 (150-450); RBC Distribution Width SD 53.4 fl (35.1-43.9); Red Blood Count 3.65 M/mm3 (4.6-6.2); White Blood Count 10.8 K/mm3 (4.4-11.0)
[2017-06-05 06:49] LABS: POSITIVE COUNT NO; POSITIVE DIFFERENTIAL NO; POSITIVE MORPHOLOGY NO
--- NOTE | 2017-06-05 07:00 | NURSING ---
This RN reviewed charting completed by inpatient nursing aide Romero Nesbitt and agrees with charting.
[2017-06-05 07:07] LABS: ALB/GLOB Ratio 0.6 RATIO (0.9-2.4); AST(SGOT) 24 U/L (15-37); Alanine Aminotransfer ALT/SGPT 45 U/L (16-61); Albumin, Serum 2.2 g/dL (3.2-5.0); Alkaline Phosphatase 107 U/L (45-117); Anion Gap 9 (5-15); BUN 15 mg/dL (7-18); BUN/Creat Ratio 18.2 RATIO (10-20); Calcium,Total 8.3 mg/dL (8.5-10.1); Chloride 106 mmol/L (98-107); Creatinine, Serum 0.82 mg/dL (0.70-1.30); EST Glomerular Filtration Rate 95 mL/min (>60); Est Glom Filt Rate - Afr Amer 115 mL/min (>60); Estimated Creatinine Clearance 73.97 ml/min; Globulin 3.4 g/dL (2.2-4.2); Glucose 89 mg/dL (74-106); Phosphorus 3.4 mg/dL (2.5-4.9); Potassium 4.2 mmol/L (3.5-5.1); Protein, Total 5.6 g/dL (6.4-8.2); Sodium Level 141 mmol/L (136-145)
[2017-06-05] MEDS: Ipratropium/Albuterol Sulfate 3 ML AMPUL.NEB INHALATION ×2 (08:07→20:11)
[2017-06-05] MEDS: Budesonide Respules 0.5 MG/2 ML AMPUL.NEB. INHALATION ×2 (08:07→20:11)
[2017-06-05] MEDS: Ascorbic Acid 500 MG Tablet PO (09:28)
[2017-06-05] MEDS: APIXABAN 5 MG TABLET PO (09:29)
[2017-06-05] MEDS: Allopurinol 300 MG Tablet PO (09:29)
[2017-06-05] MEDS: Metoprolol Tartrate 25 MG Tablet PO (09:29)
[2017-06-05] MEDS: Memantine Hydrochloride 10 MG Tablet PO (09:30)
[2017-06-05] MEDS: Famotidine 20 MG Tablet PO (09:30)
[2017-06-05] MEDS: Lisinopril 10 MG Tablet PO (09:31)
--- NOTE | 2017-06-05 13:30 | RAD_ITS ---
STUDY: SWALLOWING STUDY REASON FOR EXAM: Male, 82 years old. Possible aspiration. TECHNIQUE: The examination was performed with Speech Pathology in attendance. Under fluoroscopic observation, the patient ingested thin barium, thick barium, barium pudding, and barium coated cracker. FLUOROSCOPY TIME: 0:39 minutes/seconds. 461 spot views were obtained. RADIOLOGIST INVOLVEMENT: Radiologist was present and providing direct supervision. COMPARISON: None. FINDINGS: The following was observed during swallowing of the various mixtures of barium: Thin Barium: Aspiration with ingestion of thin liquids. Thick Barium: Aspiration with ingestion of nectar thickened liquids. The study was then terminated. RAD/Swallowing Function w/Video IMPRESSION: Aspiration for thin liquids and nectar thickened liquids. The swallow study findings were discussed with the patient by the speech pathologist at the conclusion of the examination. Please see speech pathology report for more information and recommendations. Electronically Signed: Brian Steinberg MD at 14:01 EDT Tel [phone], Service support ,
--- NOTE | 2017-06-05 13:30 | SP.MBSS_ITS ---
PRIMARY / SECONDARY DIAGNOSIS: dysphagia (R13.12) REFERRING PHYSICIAN: Dr. Mena Lizama MD CURRENT DIET: NPO DENTITION: WFL MENTAL STATUS: impaired; dementia RESPIRATORY STATUS: O2 at 3L/min via nasal cannula PREVIOUS MODIFIED BARIUM SWALLOW STUDY: none REASON FOR REFERRAL: Patient is an 82 year old male referred for a modified barium swallow (MBS) study to objectively assess the Patients oropharyngeal swallow function under fluoroscopy due to an inability to advance via subjective measures at bedside, with assessment at bedside complicated by persistent moist vocal quality with intermittent coughing. Patient currently admitted to [facility] due to community acquired pneumonia with respiratory insufficiency and hypoxia. Patients family reporting frequent coughing throughout the last 2 months with uncertain association with PO intake; no prior concerns with PO intake tolerance reported by family. 06/02/2017 CXR revealed interval development of opacities in the right upper lobe, right lower lobe and left lower lobe compatible with pneumonia. MEDICAL HISTORY: Dementia, thoracic aortic aneurysm, paroxysmal atrial fibrillation, hyperlipidemia, hypothyroidism, hypertension, chronic atrial fibrillation STUDY FINDINGS: Patient participated in a Modified Barium Swallow (MBS) study on 06/05/2017. Dr. Steinberg was the radiologist present for this evaluation. This study was recorded in the lateral view and images were sent to PACs for storage. The following consistencies were presented to this patient for analysis of oropharyngeal swallow function: thin liquids and nectar thickened liquids, with further trials terminated out of concerns for safety due to the extent of aspiration identified. Results of the MBS are as follows: PENETRATION / ASPIRATION SCALE (CARDENAS): 1 = does not enter airway 2 = enters airway/above vocal folds/ejected 3 = enters airway/above vocal folds/not ejected 4 = enters airway/contacts vocal folds/ejected 5 = enters airway/contacts vocal folds/not ejected 6 = enters airway/below vocal folds/ejected 7 = enters airway/below vocal folds/not ejected despite effort 8 = enters airway/below vocal folds/no effort VIDEOFLOROSCOPIC SCALE SCORE (CARDENAS): Grade I = aspiration of material that has penetrated into the laryngeal vestibule, intact cough reflex Grade II = aspiration < 10 % of the bolus, intact cough reflex Grade III = aspiration of < 10 % of the bolus, reduced cough reflex or aspiration of > 10 % of the bolus, intact cough reflex Grade IV = aspiration of > 10 % of the bolus, reduced cough reflex PENETRATION / ASPIRATION SCALE (SCORE) WITH VIDEOFLOROSCOPIC SCALE SCORE: Thin liquid - 5 mL tsp.: 7 - Grade III (25% of bolus) [place] thickened liquids via cup (single sip): 7 - Grade III (aspiration of 25-50% of bolus) IMPRESSION: DIAGNOSIS: severe to profound oropharyngeal dysphagia (R13.12) ORAL PHASE CHARACTERIZED BY: LABIAL SEAL: no labial escape TONGUE CONTROL DURING BOLUS MANIPULATION: posterior escape of greater than half of bolus BOLUS TRANSPORT / LINGUAL MOTION: delayed initiation of tongue motion ORAL RESIDUE: trace residue lining oral structures PHARYNGEAL PHASE CHARACTERIZED BY: INITIATION OF PHARYNGEAL SWALLOW: bolus head in pyriforms at first hyoid excursion SOFT PALATE ELEVATION: no bolus between soft palate and pharyngeal wall LARYNGEAL ELEVATION: partial superior movement of thyroid cartilage/partial approximation of arytenoids cartilage to epiglottic petiole ANTERIOR HYOID EXCURSION: partial anterior movement EPIGLOTTIC MOVEMENT: partial epiglottic inversion LARYNGEAL VESTIBULE CLOSURE AT HEIGHT OF SWALLOW: incomplete laryngeal vestibule closure with narrow column of air/contrast in laryngeal vestibule PHARYNGEAL STRIPPING WAVE: pharyngeal stripping wave present / diminished PHARYNGOESOPHAGEAL SEGMENT OPENING: partial distension and partial duration; partial obstruction of flow TONGUE BASE RETRACTION: wide column of contrast between tongue base and posterior pharyngeal wall PHARYNGEAL RESIDUE: large collection of residue within or on pharyngeal structures ESOPHAGEAL PHASE CHARACTERIZED BY: ESOPHAGEAL BOLUS CLEARANCE IN THE UPRIGHT POSITION: could not view DIET TEXTURE RECOMMENDATIONS: Strict NPO, strong considerations for alternative means of nutrition. INTERPRETATION OF RESULTS: Patient presents with severe to profound oropharyngeal dysphagia (R13.12) likely attributed to a combination of dementia and secondary presbyphagia very likely exacerbated by current medical complications. Oral phase primarily marked by insufficient labial control resulting in anterior bolus loss upwards of 50-75% of the bolus. Pharyngeal phase globally impaired, with SEVERE delayed pharyngeal swallow onset timing resulting in suboptimal bolus location upon swallow onset contributing to pre-prandial and prandial aspiration; reduced closure of the airway during deglutition attributed to reduced hyolaryngeal excursion resulting in poor laryngeal vestibule closure / pressure contributing to prandial aspiration and insufficient laryngeal vestibule pressure generated to expel penetrated material; and poor pharyngeal motility / pharyngeal dysmotility attributed to reduced tongue based retraction, posterior pharyngeal stripping wave action, and pharyngoesophageal segment opening resulting in pharyngeal retention within the valleculae and pyriforms resulting in post- prandial aspiration. Weak cough response with absolutely no effect on removal of tracheobronchial aspiration, with well over 95% of the aspirated contrast below the visualized portions of the trachea, indicating entrance at / below the level of tracheal bifurcation. Trials were terminated following copious aspiration of thin and nectar thickened liquids, with the Patient at high risk for further pulmonary complications associated with large volumes of barium aspiration. Cannot rule out silent aspiration during tracheobronchial aspiration of smaller volumes. RECOMMENDATIONS: PO intake is clearly contraindicated with the severity and extent of aspiration identified, will need to explore alternative means of nutrition to maintain adequate caloric intake. Would further consider additional risk factors for aspiration related pneumonia, as alternative means of nutrition cannot guarantee reduction in aspiration related pulmonary complications. Patient will require objective means of assessment via repeat modified barium swallow study prior to advancement to PO diet, as clinical indicators are still concerning for silent aspiration of smaller volumes. Patient requires intensive skilled speech-language intervention targeting continued diet texture management (when and if appropriate); training and implementation of recommended compensatory strategies (when and if appropriate); training and implementation of recommended oropharyngeal strengthening exercises to facilitate improved oropharyngeal strength and coordination; with considerations for training, implementation, and Patient education regarding implementation of the FFWP if able to achieve appropriate level of presentation during intervention sessions, however current placement is contraindicated. Would consider quality of life if the Patient and Patients family request advancement to less restrictive diet ONLY if all parties comprehend the severity of the Patients swallow deficits and concomitant medical complications associated with aspiration. ADDITIONAL COMMENTS/RECOMMENDATIONS: Results and recommendations were discussed with the Patient immediately following MBS completion, with the Patient verbalizing understanding and agreement with all recommendations and education provided. IMAGE COUNT: 461 G-CODES: SWALLOWING [id number] Current Status: CN SWALLOWING [id number] Goal Status: CM
[2017-06-05] MEDS: Lactated Ringers 1,000 ML 75 ML IV (14:12)
[2017-06-05] MEDS: Albuterol 2.5 MG/3 ML VIAL.NEB. INHALATION (16:02)
--- NOTE | 2017-06-05 18:13 | NURSING ---
all patient care, medication administration, & charting by Vince Gallo, Student Nurse, done under the supervision of this RN.
--- NOTE | 2017-06-05 22:53 | PCM.PROGNOTE ---
Patient Problems: Active and Suspected Problems (Last Updated 04/20/17 @ 15:56 by Kecia Fernandez) Influenza B (Acute) diagnosed 05/25/17 and received 5 days of Tamiflu CAP (community acquired pneumonia) (Acute) Abnormal LFTs (Acute) Microscopic hematuria (Acute) Subjective: The patient is a 82 year old M with a past medical history of dementia, hypothyroidism, hypertension, chronic atrial fibrillation, COPD and chronic anticoagulation with Eliquis who was sent to the emergency room from Dr. Jorgensen's office for a pulse ox of 84% on room air and a blood pressure of 86/42. He was diagnosed with influenza B on 05/25/17 and received 5 days of Tamiflu. He also was treated with prednisone, Cedinir and azithromycin. He continues to c/o of a productive cough and his appetite per his has been poor. He has SOB. He denies CP and denies N/V/D/Abd pain. VS at presentation to the ER were temperature 98.0, pulse rate 57, blood pressure 121/82, respiratory rate 30 and he was 98% saturated on 2 L nasal cannula. Chest x-ray shows diffuse patchy infiltrates on the right side with a few infiltrates in the left base. White blood cell count is 9.0 with 86% neutrophils. Hemoglobin is 10.5 and platelet count is 252,000. Coags were obtained but are not very reliable secondary to apixaban. An ABG done on a 3 L nasal cannula shows a pH of 7.47, PCO2 of 34 and a PO2 of 98. Electrolytes are within normal limits and the BUN is 21 with a creatinine of 1.09. AST, ALT and alkaline phosphatase are all mildly elevated at 55, 91 and 159 respectively. The bilirubin is within normal limits. Urine showed 50-100 RBCs per high-power field with 0-5 WBCs. Blood cultures were drawn in the emergency room and a sputum was obtained for Gram stain C&S. He was admitted to PCU with a dx of PNA - possibly due to aspiration. He was started on Vancomycin and Zosyn. Legionella and streptococcal antigens were negative. Blood cultures have been negative ?48 hours. Sputum Gram stain had 2+ white blood cells and no significant growth on the culture. Modified barium swallow was done on 06/05/2017 and showed severe to profound oral pharyngeal dysphagia and speech therapy recommended he be kept n.p.o. He did go into AF with RVR early this AM and Lopressor has been transitioned to IV and will transition the amiodarone to IV at 0.5mg/min. He has no complaints other than he is hungry and he wants to eat. Objective: - Physical Exam General: Alert, Cooperative, Confused, - He is able to answer questions appropriately and also able to follow commands. The cough has improved since admission and he rarely coughs when I am in the room now. He is pleasant and not having any behavioral issues today HEENT: Atraumatic, PERRLA, Normocephalic Oral: Dry Mucosa has improved and tongue is moist today Neck: Supple, No JVD, No Nodes, Trachea Midline Lungs:- There is symmetric chest rise. He is having apneic periods with Vish-Viramontes respirations. When he is awake he has no tachypnea and no conversational dyspnea. There is no accessory muscle use. No rhonchi or wheezes today. He continues to have crackles that are coarse and they are in the bases and improve after he takes a few deep breaths Cardiovascular: Normal S1, Normal S2, No murmurs, Irregular Rate, tachycardic, no gallop Abdomen: Bowel Sounds Present, Soft, Non Tender, Non-Distended, - - No guarding with palpation Extremities: No clubbing, No cyanosis, No edema, Diminished Peripheral Pulses Skin: No rashes, No breakdown, - - He has a few healing abrasions on the RLE due to a fall.... No periwound erythema, no discharge. Musculoskeletal: Arthritic Changes Neurological: Cranial nerves II-XII grossly intact, Neuro grossly intact Psych/Mental Status: Normal Affect, Appropriate - Physical Exam Vital Signs Temp Pulse Resp BP Pulse Ox 98.5 F 135 H 33 H 140/106 H 98 06/05/17 21:56 06/05/17 21:56 06/05/17 21:56 06/05/17 21:56 06/05/17 21:56 Oxygen Flow Rate (L/min) 3 Oxygen Delivery Method Nasal Cannula Weight: 166 lb 0.129 oz Body Mass Index (BMI) 23.1 Intake and Output for Last 24 Hours 06/03/17 06/04/17 06/05/17 23:59 23:59 23:59 Intake Total 1416 / 1416 2957.5 / 2957.5 2331.6 / 2331.6 Output Total 0 / 0 550 / 550 Balance 1416 / 1416 2407.5 / 2407.5 2331.6 / 2331.6 Microbiology Past 72 Hours 06/02/17 15:00 Urine Culture - Final Urine, Clean Catch Staphylococcus species 06/02/17 14:00 Gram Stain - Final Sputum, Expectorated/Coughed Respiratory Culture - Final 06/03/17 00:19 Legionella Antigen - Final Urine, Clean Catch 06/03/17 00:19 Streptococcus pneumoniae Antigen (M - Final Urine, Clean Catch Laboratory Tests Past 24 Hrs 06/05/17 06/05/17 06:20 06:20 WBC 10.8 RBC 3.65 L Hgb 11.2 L Hct 34.7 L MCV 95.1 H MCH 30.7 MCHC 32.3 RDW 16.0 H RDW Differential 53.4 H Plt Count 262 MPV 10.3 Immature Gran % (Auto) 0.300 Neut % (Auto) 85.0 H Lymph % (Auto) 6.7 L [place] % (Auto) 7.3 Eos % (Auto) 0.6 Baso % (Auto) 0.1 Absolute Neuts (auto) 9.2 H Absolute Lymphs (auto) 0.72 L Total Counted Not Reportable Sodium 141 Potassium 4.2 Chloride 106 Carbon Dioxide 26.0 Anion Gap 9 BUN 15 Creatinine 0.82 Estim Creat Clear Calc 73.97 Est GFR (MDRD) Af Amer 115 Est GFR (MDRD) Non-Af 95 BUN/Creatinine Ratio 18.2 Glucose 89 Calcium 8.3 L Phosphorus 3.4 Magnesium 2.0 Total Bilirubin 1.00 AST 24 ALT 45 Alkaline Phosphatase 107 Total Protein 5.6 L Albumin 2.2 L Globulin 3.4 Albumin/Globulin Ratio 0.6 L Medical Necessity - Tobacco Use Smoking Status: Never smoker Tobacco Use: Non-smoker Assessment/Plan Active and Suspected Problems (Last Updated 04/20/17 @ 15:56 by Kecia Fernandez) Influenza B (Acute) diagnosed 05/25/17 and received 5 days of Tamiflu CAP (community acquired pneumonia) (Acute) Abnormal LFTs (Acute) Microscopic hematuria (Acute) Day #4 Zosyn Impressions 1. Aspiration PNA with respiratory insufficiency and hypoxia. Sputum and blood cultures negative. Streptococcal and Legionella antigens in the urine negative. Discontinue vancomycin and continue on Zosyn. MRSA nasal swab was negative. 2. acute exacerbation COPD - ATC aerosolized bronchodilators and Budesonide. 3. Dementia 4. Chronic atrial fibrillation - transition to IV Lopressor and amiodarone 0.5mg/min Amiodarone.......HR is still uncontrolled after IV Lopressor so will start Cardizem infusion after a bolus 5. Chronic anticoagulation with Eliquis 6. Recent influenza B-diagnosed for 05/27/17 and he received 5 days of Tamiflu 7. Abnormal LFTs 8. Microscopic hematuria 9. History of hypothyroidism 10. Hypertension 11. Urinary incontinence-continue Detrol 12. Severe - profound oral pharyngeal dysphagia-speech therapist recommends continued n.p.o. status Continue Seroquel for I discussed the results of the MBS with his . she is very sad. We discussed the options and she is going to think about it. she does not think he would want a PEG and he will not be happy if he can not eat. I told her that sometimes in these situations we continue to feed and consult palliative/hospice. It is inevitable he will have recurrent bouts of Aspiration PNA in the future and he will continue to decline. He seems happy right now and he is very pleasant with no behavioral issues since seroquel at was started. I also discussed the results of the MBS with his 2 sons on the phone and answered their questions. They would like to have a family meeting tomorrow and discuss options and the plan for care at [place]. They would also like to meet with /[place] assortment planner to see if they can get help form [facility] at discharge Code Visit Inpatient E&M: 52512 Subs Hosp L2
--- NOTE | 2017-06-05 23:08 | PN_ITS ---
Patient Problems: Active and Suspected Problems (Last Updated 04/20/17 @ 15:56 by Kecia Fernandez) Influenza B (Acute) diagnosed 05/25/17 and received 5 days of Tamiflu CAP (community acquired pneumonia) (Acute) Abnormal LFTs (Acute) Microscopic hematuria (Acute) Subjective: The patient is a 82 year old M with a past medical history of dementia, hypothyroidism, hypertension, chronic atrial fibrillation, COPD and chronic anticoagulation with Eliquis who was sent to the emergency room from Dr. Jorgensen' s office for a pulse ox of 84% on room air and a blood pressure of 86/42. He was diagnosed with influenza B on 05/25/17 and received 5 days of Tamiflu. He also was treated with prednisone, Cedinir and azithromycin. He continues to c/o of a productive cough and his appetite per his has been poor. He has SOB. He denies CP and denies N/V/D/Abd pain. VS at presentation to the ER were temperature 98.0, pulse rate 57, blood pressure 121/82, respiratory rate 30 and he was 98% saturated on 2 L nasal cannula. Chest x-ray shows diffuse patchy infiltrates on the right side with a few infiltrates in the left base. White blood cell count is 9.0 with 86% neutrophils. Hemoglobin is 10.5 and platelet count is 252,000. Coags were obtained but are not very reliable secondary to apixaban. An ABG done on a 3 L nasal cannula shows a pH of 7.47, PCO2 of 34 and a PO2 of 98. Electrolytes are within normal limits and the BUN is 21 with a creatinine of 1.09. AST, ALT and alkaline phosphatase are all mildly elevated at 55, 91 and 159 respectively. The bilirubin is within normal limits. Urine showed 50-100 RBCs per high-power field with 0-5 WBCs. Blood cultures were drawn in the emergency room and a sputum was obtained for Gram stain C&S. He was admitted to PCU with a dx of PNA - possibly due to aspiration. He was started on Vancomycin and Zosyn. Legionella and streptococcal antigens were negative. Blood cultures have been negative ?48 hours. Sputum Gram stain had 2 + white blood cells and no significant growth on the culture. Modified barium swallow was done on 06/05/2017 and showed severe to profound oral pharyngeal dysphagia and speech therapy recommended he be kept n.p.o. He did go into AF with RVR early this AM and Lopressor has been transitioned to IV and will transition the amiodarone to IV at 0.5mg/min. He has no complaints other than he is hungry and he wants to eat. Objective: - Physical Exam General: Alert, Cooperative, Confused, - He is able to answer questions appropriately and also able to follow commands. The cough has improved since admission and he rarely coughs when I am in the room now. He is pleasant and not having any behavioral issues today HEENT: Atraumatic, PERRLA, Normocephalic Oral: Dry Mucosa has improved and tongue is moist today Neck: Supple, No JVD, No Nodes, Trachea Midline Lungs:- There is symmetric chest rise. He is having apneic periods with Vish- Viramontes respirations. When he is awake he has no tachypnea and no conversational dyspnea. There is no accessory muscle use. No rhonchi or wheezes today. He continues to have crackles that are coarse and they are in the bases and improve after he takes a few deep breaths Cardiovascular: Normal S1, Normal S2, No murmurs, Irregular Rate, tachycardic, no gallop Abdomen: Bowel Sounds Present, Soft, Non Tender, Non-Distended, - - No guarding with palpation Extremities: No clubbing, No cyanosis, No edema, Diminished Peripheral Pulses Skin: No rashes, No breakdown, - - He has a few healing abrasions on the RLE due to a fall.... No periwound erythema, no discharge. Musculoskeletal: Arthritic Changes Neurological: Cranial nerves II-XII grossly intact, Neuro grossly intact Psych/Mental Status: Normal Affect, Appropriate - Physical Exam Vital Signs Temp Pulse Resp BP Pulse Ox 98.5 F 135 H 33 H 140/106 H 98 06/05/17 21:56 06/05/17 21:56 06/05/17 21:56 06/05/17 21:56 06/05/17 21:56 Oxygen Flow Rate (L/min) 3 Oxygen Delivery Method Nasal Cannula Weight: 166 lb 0.129 oz Body Mass Index (BMI) 23.1 Intake and Output for Last 24 Hours 06/03/17 06/04/17 06/05/17 23:59 23:59 23:59 Intake Total 1416 / 1416 2957.5 / 2957.5 2331.6 / 2331.6 Output Total 0 / 0 550 / 550 Balance 1416 / 1416 2407.5 / 2407.5 2331.6 / 2331.6 Microbiology Past 72 Hours 06/02/17 15:00 Urine Culture - Final Urine, Clean Catch Staphylococcus species 06/02/17 14:00 Gram Stain - Final Sputum, Expectorated/Coughed Respiratory Culture - Final 06/03/17 00:19 Legionella Antigen - Final Urine, Clean Catch 06/03/17 00:19 Streptococcus pneumoniae Antigen (M - Final Urine, Clean Catch Laboratory Tests Past 24 Hrs 06/05/17 06/05/17 06:20 06:20 WBC 10.8 RBC 3.65 L Hgb 11.2 L Hct 34.7 L MCV 95.1 H MCH 30.7 MCHC 32.3 RDW 16.0 H RDW Differential 53.4 H Plt Count 262 MPV 10.3 Immature Gran % (Auto) 0.300 Neut % (Auto) 85.0 H Lymph % (Auto) 6.7 L Kimble % (Auto) 7.3 Eos % (Auto) 0.6 Baso % (Auto) 0.1 Absolute Neuts (auto) 9.2 H Absolute Lymphs (auto) 0.72 L Total Counted Not Reportable Sodium 141 Potassium 4.2 Chloride 106 Carbon Dioxide 26.0 Anion Gap 9 BUN 15 Creatinine 0.82 Estim Creat Clear Calc 73.97 Est GFR (MDRD) Af Amer 115 Est GFR (MDRD) Non-Af 95 BUN/Creatinine Ratio 18.2 Glucose 89 Calcium 8.3 L Phosphorus 3.4 Magnesium 2.0 Total Bilirubin 1.00 AST 24 ALT 45 Alkaline Phosphatase 107 Total Protein 5.6 L Albumin 2.2 L Globulin 3.4 Albumin/Globulin Ratio 0.6 L Medical Necessity - Tobacco Use Smoking Status: Never smoker Tobacco Use: Non-smoker Assessment/Plan Active and Suspected Problems (Last Updated 04/20/17 @ 15:56 by Kecia Fernandez) Influenza B (Acute) diagnosed 05/25/17 and received 5 days of Tamiflu CAP (community acquired pneumonia) (Acute) Abnormal LFTs (Acute) Microscopic hematuria (Acute) Day #4 Zosyn Impressions 1. Aspiration PNA with respiratory insufficiency and hypoxia. Sputum and blood cultures negative. Streptococcal and Legionella antigens in the urine negative. Discontinue vancomycin and continue on Zosyn. MRSA nasal swab was negative. 2. acute exacerbation COPD - ATC aerosolized bronchodilators and Budesonide. 3. Dementia 4. Chronic atrial fibrillation - transition to IV Lopressor and amiodarone 0.5mg/min Amiodarone.......HR is still uncontrolled after IV Lopressor so will start Cardizem infusion after a bolus 5. Chronic anticoagulation with Eliquis 6. Recent influenza B-diagnosed for 05/27/17 and he received 5 days of Tamiflu 7. Abnormal LFTs 8. Microscopic hematuria 9. History of hypothyroidism 10. Hypertension 11. Urinary incontinence-continue Detrol 12. Severe - profound oral pharyngeal dysphagia-speech therapist recommends continued n.p.o. status Continue Seroquel for I discussed the results of the MBS with his . she is very sad. We discussed the options and she is going to think about it. she does not think he would want a PEG and he will not be happy if he can not eat. I told her that sometimes in these situations we continue to feed and consult palliative/ hospice. It is inevitable he will have recurrent bouts of Aspiration PNA in the future and he will continue to decline. He seems happy right now and he is very pleasant with no behavioral issues since seroquel at was started. I also discussed the results of the MBS with his 2 sons on the phone and answered their questions. They would like to have a family meeting tomorrow and discuss options and the plan for care at [place]. They would also like to meet with /[place] media planner / buyer to see if they can get help form [facility] at discharge Code Visit Inpatient E&M: [id number] Subs Hosp L2
[2017-06-06] VITALS (40 sets, daily range): BP systolic 99–141; BP diastolic 50–126; PULSE 98–131; RESP 16–35; TEMP 36.2–37.5; O2SAT 92–97
[2017-06-06] MEDS: dilTIAZem 25 MG/5 ML Vial 20 MG IV BOLUS
[2017-06-06] MEDS: Lactated Ringers 1,000 ML 75 ML IV (04:04)
--- NOTE | 2017-06-06 05:55 | RAD_ITS ---
STUDY: X-RAY CHEST REASON FOR EXAM: Male, 82 years old. Aspiration pneumonia TECHNIQUE: Single view of the chest was obtained COMPARISON: June 02, 2017 chest radiograph FINDINGS: Redemonstration of ill-defined airspace opacities in the right lung with increased reticular markings. Small right-sided pleural effusion also seen. Subtle airspace opacities in the left lower lobe also seen. Cardiac size is enlarged. Aortic knob is prominent. No pneumothorax. IMPRESSION: Redemonstration of bilateral airspace opacities predominantly in the right lung as well as the left lower lobe. Please consider chest CT for better assessment. Electronically Signed: Arcadio De Santiago, at 15:17 EDT Tel , Service support , RAD/Chest 1 View (Portable)
[2017-06-06] MEDS: Metoprolol Tartrate 5 MG/5 ML Vial IV ×2 (06:00→11:59)
[2017-06-06] MEDS: Ipratropium/Albuterol Sulfate 3 ML AMPUL.NEB INHALATION (06:49)
[2017-06-06] MEDS: Budesonide Respules 0.5 MG/2 ML AMPUL.NEB. INHALATION (06:49)
--- NOTE | 2017-06-06 11:10 | NURSING ---
SPOKE TO VARINDER ABOUT AMIO BAG RUNNING OUT. STATES DON'T HANG ANOTHER BAG UNTIL FAMILY MEETING.
--- NOTE | 2017-06-06 13:03 | PCM.EXTCARCO ---
- Diet 06/05/17 15:42 Diet: Regular Diet Food consistency:: Puree Liquid Consistency:: Honey Thick Is pt able to select menu?: Yes Diet Comments: sit up at 90 degrees while eating, small bites, liquids on a teaspoon, doub - Routine Orders/Code Status Enema Type: Fleetz Enema Frequency: Daily PRN Suppository Type: Dulcolax 10mg Suppository Frequency: Daily PRN O2 Liters per Minute: 2-4 O2 Frequency: Continuous Keep PO Greater than or Equal to (%): 90 Routine Lab Work: CBC, BMP, - - Q Week [facility] - Wound(s) r knee Wound Type: Abrasion r miner Wound Type: Abrasion Dressing Change: Dry Sterile Dressing - Suggestions for Active Care Change Position every (hours): 2 Times a day to sit in chair: 3 - Therapies Physical Therapy: Eval and Treat Occupational Therapy: Eval and Treat Speech Therapy: Eval and Treat - Allergies/Procedures Done in Hospital Allergies/Adverse Reactions: Allergies No Known Allergies Allergy (Verified 06/02/17 11:32) Procedures: None - Type of Care/Length of Stay Estimated LOS: Convalescent Care Less Than 30 days Type of Care Needed: Skilled Rehab Potential: Poor Prognosis: Poor - Additional Orders/Day of Discharge H&P will serve as current which was dated: 06/02/17 Day of Discharge: 06/06/17 - Dietary and Speech Recommendations Dietitian Recommendations/Changes: Rec adv diet as tolerated to regular, consistency per FARM IMPLEMENT ENGINE MECHANIC. Ensure Enlive w/ medpass when appropraite for PO diet. If pt to remain NPO, may need alternate means of nutrition support- consult RD as appropriate. - Follow Up Care Primary Care Physician: Gerson Jorgensen Chi, MD [Primary Care Provider] - Please follow up with your Primary Care Physician in: 1-2 Weeks Please Follow Up With: Eliseo Oscar MD When: 1-2 Weeks
--- NOTE | 2017-06-06 13:08 | TREXTCA.CO_ITS ---
- Diet 06/05/17 15:42 Diet: Regular Diet Food consistency:: Puree Liquid Consistency:: Honey Thick Is pt able to select menu?: Yes Diet Comments: sit up at 90 degrees while eating, small bites, liquids on a teaspoon, doub - Routine Orders/Code Status Enema Type: Fleetz Enema Frequency: Daily PRN Suppository Type: Dulcolax 10mg Suppository Frequency: Daily PRN O2 Liters per Minute: 2-4 O2 Frequency: Continuous Keep PO Greater than or Equal to (%): 90 Routine Lab Work: CBC, BMP, - - Q Week Code [facility]: [facility] - Wound(s) r knee Wound Type: Abrasion r miner Wound Type: Abrasion Dressing Change: Dry Sterile Dressing - Suggestions for Active Care Change Position every (hours): 2 Times a day to sit in chair: 3 - Therapies Physical Therapy: Eval and Treat Occupational Therapy: Eval and Treat Speech Therapy: Eval and Treat - Allergies/Procedures Done in Hospital Allergies/Adverse Reactions: Allergies No Known Allergies Allergy (Verified 06/02/17 11:32) Procedures: None - Type of Care/Length of Stay Estimated LOS: Convalescent Care Less Than 30 days Type of Care Needed: Skilled Rehab Potential: Poor Prognosis: Poor - Additional Orders/Day of Discharge H&P will serve as current which was dated: 06/02/17 Day of Discharge: 06/06/17 - Dietary and Speech Recommendations Dietitian Recommendations/Changes: Rec adv diet as tolerated to regular, consistency per TRACK COACH. Ensure Enlive w/ medpass when appropraite for PO diet. If pt to remain NPO, may need alternate means of nutrition support- consult RD as appropriate. - Follow Up Care Primary Care Physician: Gerson Jorgensen Chi, MD [Primary Care Provider] - Please follow up with your Primary Care Physician in: 1-2 Weeks Please Follow Up With: Eliseo Oscar MD When: 1-2 Weeks
--- NOTE | 2017-06-06 13:09 | PCM.DC.SUM ---
<Irena Agudelo - Last Filed: 06/06/17 13:28> Discharge Date and Diagnosis Date of Admission: 06/02/17 Date of Discharge: 06/06/17 - Primary Discharge Diagnosis Active and Suspected Problems (Last Updated 04/20/17 @ 15:56 by Kecia Fernandez) 1. Acute hypoxia secondary to aspiration pneumonia 2. Severe oropharyngeal dysphasia 3. Abnormal LFTs 4. Recent influenza B 5. Acute COPD exacerbation 6. Atrial fibrillation with RVR with underlying chronic atrial fibrillation - Secondary Discharge Diagnosis Chronic Problems (Last Updated 04/20/17 @ 15:56 by Kecia Fernandez) Chronic anticoagulation (Chronic) Abnormal EKG (Chronic) Thoracic aortic aneurysm, without rupture (Chronic) Paroxysmal atrial fibrillation (Chronic) Hyperlipidemia (Chronic) Dementia (Chronic) Hypothyroidism (Chronic) Hypertension (Chronic) Chronic atrial fibrillation (Chronic) Hospital Course and Treatment Imaging Results: Diagnostic Data Videofluoroscopic Swallow 06/05/17 13:30 IMPRESSION: Aspiration for thin liquids and nectar thickened liquids. The swallow study findings were discussed with the patient by the speech pathologist at the conclusion of the examination. Please see speech pathology report for more information and recommendations. Electronically Signed: Brian Steinberg MD at 14:01 EDT Tel [phone], Service support , Operations: None Procedures: None Summary of Care Provided: The patient is a 82 year old M admitted 06/02/17 due to hypoxia at primary care office and low blood pressure. He has a past medical history of dementia, hypothyroidism, hypertension, chronic atrial fibrillation, COPD, chronic anticoagulation with Eliquis. 1. Acute hypoxia secondary to aspiration pneumonia-chest x-ray on admission with right upper lobe opacities, right lower lobe and left lower lobe compatible with pneumonia. Patient was treated with IV Zosyn and IV vancomycin. Patient underwent modified barium swallow 06/05/17 and was noted to have severe oropharyngeal dysphasia and n.p.o. was recommended. Patient declined PEG tube placement. Patient was placed on pur?ed consistency diet with honey thick liquids with the understanding that patient may aspirate even on modified diet. Patient will be discharged on Augmentin 875 mg p.o. twice daily for 5 more days at discharge. He will continue albuterol and DuoNeb aerosols as needed. Continue supplemental oxygen to maintain O2 at or above 90%. Patient will be discharged to transitional care unit with palliative care consult. Urine negative for strep and Legionella. Blood cultures negative. Sputum culture showed no significant growth. 2. Severe oropharyngeal dysphasia-modified diet as noted above. Continue speech therapy at TCU. 3. Abnormal LFTs-unclear etiology. Resolved. 4. Recent influenza B-diagnosed 05/25/17 and completed 5 day Tamiflu course. 5. Acute COPD exacerbation-continue albuterol, DuoNeb and Pulmicort aerosols at discharge. 6. Atrial fibrillation with RVR with underlying chronic atrial fibrillation-patient will continue home amiodarone regimen. Home metoprolol regimen increased to 50 mg twice daily. He was also started on Cardizem 120 mg twice daily. Heart rate controlled. General: Alert, Cooperative HEENT: Atraumatic, PERRLA, Normocephalic Oral: Dry Mucosa Neck: Supple, No JVD, No Nodes, Trachea Midline Lungs: Diminished, coarse crackles in the bases Cardiovascular: Normal S1, Normal S2, No murmurs, tachycardic, irregular rhythm Abdomen: Bowel Sounds Present, Soft, Non Tender, Non-Distended Extremities: No clubbing, No cyanosis, No edema Skin: No rashes, No breakdown Musculoskeletal: No tenderness to palpation Neurological: Cranial nerves II-XII grossly intact, Neuro grossly intact Psych/Mental Status: Normal Affect, Appropriate Patient seen and examined prior to discharge. He is stable at this time. Patient and family have decided on transitional care unit with palliative care consult. He will continue pur?ed consistency diet with honey thick liquids with the understanding that patient may still aspirate. Family states depending on how patient does or does not progress, they may consider hospice in the future. Patient is stable for discharge to TCU with palliative care. This patient was seen by DORON Cardoza under the supervision of Dr. Dennison. Home Medications: Medications to take at Discharge Allopurinol [Zyloprim] 300 mg PO DAILY 09/23/15 Amiodarone HCl 100 mg PO QHS 09/23/15 Tolterodine Tartrate [Detrol] 2 mg PO QHS 09/23/15 Apixaban [Eliquis] 5 mg PO BID 12/08/16 Cyanocobalamin [Vitamin B12] 1,000 mg PO DAILY 12/08/16 Lisinopril [Zestril] 10 mg PO DAILY 02/17/17 nitroglycerin 0.4 mg sublingual tablet 0.4 mg SUBLINGUAL Q5M PRN 04/08/17 levothyroxine 50 mcg capsule 50 mcg PO QDAY cap 04/15/17 ascorbic acid (vitamin C) 500 mg tablet 500 mg PO QDAY 04/16/17 cholecalciferol (vitamin D3) 1,000 unit capsule 1,000 unit PO ONCE 04/16/17 Memantine HCl/Donepezil HCl [Namzaric 28 mg-10 mg Capsule] 1 each PO QHS 04/29/17 Albuterol Aerosols [Ventolin Aerosols] 2.5 mg INHALATION Q2H PRN PRN vial.neb. 06/06/17 Amox/Clavulanate Tablet [Augmentin Tablet] 875 mg PO Q12H #10 tablet 06/06/17 Budesonide Aerosol [Pulmicort Respules] 0.5 mg INHALATION BID.RT ampul.neb. 06/06/17 Diltiazem CD [Cardizem CD] 120 mg PO BID #60 capsule 06/06/17 Ipratropium/Albuterol Sulfate [Duoneb] 3 ml INHALATION Q6H.RT ampul.neb 06/06/17 Metoprolol Tartrate 50 mg PO BID #60 tablet 06/06/17 Following Prescrptions Were Given to Patient: Amox/Clavulanate Tablet [Augmentin Tablet] 875 mg PO Q12H #10 tablet Diltiazem CD [Cardizem CD] 120 mg PO BID #60 capsule Metoprolol Tartrate 50 mg PO BID #60 tablet Primary Care Physician: Gerson Jorgensen Chi, MD [Primary Care Provider] - Please follow up with your Primary Care Physician in: 1-2 Weeks Please Follow Up With: Eliseo Oscar MD When: 1-2 Weeks Disposition: Palliative care Minutes spent on discharge:: 35 Patient Condition:: Stable Medical Necessity - Tobacco Use Smoking Status: Never smoker Tobacco Use: Non-smoker Meaningful Use Info Meaningful Use Diagnoses (Choose all that apply): None applicable <Steven Dennison - Last Filed: 06/06/17 13:58> Discharge Date and Diagnosis - Secondary Discharge Diagnosis Chronic Problems (Last Updated 04/20/17 @ 15:56 by Kecia Fernandez) Chronic anticoagulation (Chronic) Abnormal EKG (Chronic) Thoracic aortic aneurysm, without rupture (Chronic) Paroxysmal atrial fibrillation (Chronic) Hyperlipidemia (Chronic) Dementia (Chronic) Hypothyroidism (Chronic) Hypertension (Chronic) Chronic atrial fibrillation (Chronic) Hospital Course and Treatment Imaging Results: 06/06/17 05:55 Chest 1 View (Portable) [RAD] AM (NON MEDS) Summary of Care Provided: The patient is a 82 year old M with multiple comorbidities including chronic A. fib recent influenza B infection who presented with progressive shortness of breath and assessment of acute hypoxic respiratory failure secondary to aspiration pneumonia was made patient admitted to monitored bed for further management. Patient was also found to be in A. fib with RVR. Patient underwent cookie swallow which was positive for aspiration case discussed with family specifically patient's who initially wanted the patient to undergo a feeding tube placement patient however declined patient was therefore discharged to a shelter facility with palliative care Hospital course as elicited above by Irena Agudelo ; Total time spent on discharge process 40 minutes Code Visit Inpatient E&M: [id number] Disch Hosp
--- NOTE | 2017-06-06 13:22 | CASEMGMT ---
Social Work Note Unit: PCU Upon arriving to unit found that a family meeting had been scheduled for this commercial real estate underwriter and family today at 1330. Received call from the son, Gilmar Hodge, asking if meeting can be held earlier in the day, around 1200. group care worker gathered some information from Gilmar, regarding nature of meeting. Planning on meeting at 1200. Family arrived to unit before 1200, asking if social media project manager available before 1200. Sat down with patient's Charo, son Gilmar, Gilmar's Zach, a niece Nola, and via speaker phone son Kannan. Answered questions and reviewed options for after care. Discussed short term SNF, intermediate level of care at under medicaid or private pay, assisted living/private pay, and broached home with home health or private duty home care services. Educated to difference between palliative and hospice services. At family's request provided list of SNF in the [facility]. After much discussion this was decided: patient to [facility], skilled under [employer] medicare, with a palliative care consult with [facility] program. family will be looking at [facility] care options for patient after skilled, including at least 2 half-way options. family voiced interest in [facility] if patient gets to the point of hospice care, but also open to seeing how likes [facility] palliative services before deciding on a hospice for sure. Updated Irena Agudelo NP-C to outcome of family meeting. Called Meg Boles, wholesale manager of TCU, updating to family meeting, current medical status and wishes for patient to try skilled care before deciding on fci care options. Met with patient and family again, reviewing plan for discharge. Patient voices agreement that would like to continue with original plan for short term SNF. Patient voiced agreement to have palliative care consult. Plan: Discharged skilled level of to [facility] TCU with palliative consult in place. -FUAD Carrington, TRENCH SHOVEL OPERATOR
--- NOTE | 2017-06-06 13:26 | DS.PCM_ITS ---
<Irena Agudelo - Last Filed: 06/06/17 13:28> Discharge Date and Diagnosis Date of Admission: 06/02/17 Date of Discharge: 06/06/17 - Primary Discharge Diagnosis Active and Suspected Problems (Last Updated 04/20/17 @ 15:56 by Kecia Fernandez) 1. Acute hypoxia secondary to aspiration pneumonia 2. Severe oropharyngeal dysphasia 3. Abnormal LFTs 4. Recent influenza B 5. Acute COPD exacerbation 6. Atrial fibrillation with RVR with underlying chronic atrial fibrillation - Secondary Discharge Diagnosis Chronic Problems (Last Updated 04/20/17 @ 15:56 by Kecia Fernandez) Chronic anticoagulation (Chronic) Abnormal EKG (Chronic) Thoracic aortic aneurysm, without rupture (Chronic) Paroxysmal atrial fibrillation (Chronic) Hyperlipidemia (Chronic) Dementia (Chronic) Hypothyroidism (Chronic) Hypertension (Chronic) Chronic atrial fibrillation (Chronic) Hospital Course and Treatment Imaging Results: Diagnostic Data Videofluoroscopic Swallow 06/05/17 13:30 IMPRESSION: Aspiration for thin liquids and nectar thickened liquids. The swallow study findings were discussed with the patient by the speech pathologist at the conclusion of the examination. Please see speech pathology report for more information and recommendations. Electronically Signed: Brian Steinberg MD at 14:01 EDT Tel [phone], Service support , Operations: None Procedures: None Summary of Care Provided: The patient is a 82 year old M admitted 06/02/17 due to hypoxia at primary care office and low blood pressure. He has a past medical history of dementia, hypothyroidism, hypertension, chronic atrial fibrillation, COPD, chronic anticoagulation with Eliquis. 1. Acute hypoxia secondary to aspiration pneumonia-chest x-ray on admission with right upper lobe opacities, right lower lobe and left lower lobe compatible with pneumonia. Patient was treated with IV Zosyn and IV vancomycin. Patient underwent modified barium swallow 06/05/17 and was noted to have severe oropharyngeal dysphasia and n.p.o. was recommended. Patient declined PEG tube placement. Patient was placed on pur?ed consistency diet with honey thick liquids with the understanding that patient may aspirate even on modified diet. Patient will be discharged on Augmentin 875 mg p.o. twice daily for 5 more days at discharge. He will continue albuterol and DuoNeb aerosols as needed. Continue supplemental oxygen to maintain O2 at or above 90% . Patient will be discharged to transitional care unit with palliative care consult. Urine negative for strep and Legionella. Blood cultures negative. Sputum culture showed no significant growth. 2. Severe oropharyngeal dysphasia-modified diet as noted above. Continue speech therapy at TCU. 3. Abnormal LFTs-unclear etiology. Resolved. 4. Recent influenza B-diagnosed 05/25/17 and completed 5 day Tamiflu course. 5. Acute COPD exacerbation-continue albuterol, DuoNeb and Pulmicort aerosols at discharge. 6. Atrial fibrillation with RVR with underlying chronic atrial fibrillation- patient will continue home amiodarone regimen. Home metoprolol regimen increased to 50 mg twice daily. He was also started on Cardizem 120 mg twice daily. Heart rate controlled. General: Alert, Cooperative HEENT: Atraumatic, PERRLA, Normocephalic Oral: Dry Mucosa Neck: Supple, No JVD, No Nodes, Trachea Midline Lungs: Diminished, coarse crackles in the bases Cardiovascular: Normal S1, Normal S2, No murmurs, tachycardic, irregular rhythm Abdomen: Bowel Sounds Present, Soft, Non Tender, Non-Distended Extremities: No clubbing, No cyanosis, No edema Skin: No rashes, No breakdown Musculoskeletal: No tenderness to palpation Neurological: Cranial nerves II-XII grossly intact, Neuro grossly intact Psych/Mental Status: Normal Affect, Appropriate Patient seen and examined prior to discharge. He is stable at this time. Patient and family have decided on transitional care unit with palliative care consult. He will continue pur?ed consistency diet with honey thick liquids with the understanding that patient may still aspirate. Family states depending on how patient does or does not progress, they may consider hospice in the future. Patient is stable for discharge to TCU with palliative care. This patient was seen by DORON Cardoza under the supervision of Dr. Dennison. Home Medications: Medications to take at Discharge Allopurinol [Zyloprim] 300 mg PO DAILY 09/23/15 Amiodarone HCl 100 mg PO QHS 09/23/15 Tolterodine Tartrate [Detrol] 2 mg PO QHS 09/23/15 Apixaban [Eliquis] 5 mg PO BID 12/08/16 Cyanocobalamin [Vitamin B12] 1,000 mg PO DAILY 12/08/16 Lisinopril [Zestril] 10 mg PO DAILY 02/17/17 nitroglycerin 0.4 mg sublingual tablet 0.4 mg SUBLINGUAL Q5M PRN 04/08/17 levothyroxine 50 mcg capsule 50 mcg PO QDAY cap 04/15/17 ascorbic acid (vitamin C) 500 mg tablet 500 mg PO QDAY 04/16/17 cholecalciferol (vitamin D3) 1,000 unit capsule 1,000 unit PO ONCE 04/16/17 Memantine HCl/Donepezil HCl [Namzaric 28 mg-10 mg Capsule] 1 each PO QHS Albuterol Aerosols [Ventolin Aerosols] 2.5 mg INHALATION Q2H PRN PRN vial.neb. 06/06/17 Amox/Clavulanate Tablet [Augmentin Tablet] 875 mg PO Q12H #10 tablet 06/06/17 Budesonide Aerosol [Pulmicort Respules] 0.5 mg INHALATION BID.RT ampul.neb. Diltiazem CD [Cardizem CD] 120 mg PO BID #60 capsule 06/06/17 Ipratropium/Albuterol Sulfate [Duoneb] 3 ml INHALATION Q6H.RT ampul.neb Metoprolol Tartrate 50 mg PO BID #60 tablet 06/06/17 Following Prescrptions Were Given to Patient: Amox/Clavulanate Tablet [Augmentin Tablet] 875 mg PO Q12H #10 tablet Diltiazem CD [Cardizem CD] 120 mg PO BID #60 capsule Metoprolol Tartrate 50 mg PO BID #60 tablet Primary Care Physician: Gesron Jorgensen Chi, MD [Primary Care Provider] - Please follow up with your Primary Care Physician in: 1-2 Weeks Please Follow Up With: Eliseo Oscar MD When: 1-2 Weeks Disposition: Palliative care Minutes spent on discharge:: 35 Patient Condition:: Stable Medical Necessity - Tobacco Use Smoking Status: Never smoker Tobacco Use: Non-smoker Meaningful Use Info Meaningful Use Diagnoses (Choose all that apply): None applicable <Steven Dennison - Last Filed: 06/06/17 13:58> Discharge Date and Diagnosis - Secondary Discharge Diagnosis Chronic Problems (Last Updated 04/20/17 @ 15:56 by Kecia Fernandez) Chronic anticoagulation (Chronic) Abnormal EKG (Chronic) Thoracic aortic aneurysm, without rupture (Chronic) Paroxysmal atrial fibrillation (Chronic) Hyperlipidemia (Chronic) Dementia (Chronic) Hypothyroidism (Chronic) Hypertension (Chronic) Chronic atrial fibrillation (Chronic) Hospital Course and Treatment Imaging Results: 06/06/17 05:55 Chest 1 View (Portable) [RAD] AM (NON MEDS) Summary of Care Provided: The patient is a 82 year old M with multiple comorbidities including chronic A. fib recent influenza B infection who presented with progressive shortness of breath and assessment of acute hypoxic respiratory failure secondary to aspiration pneumonia was made patient admitted to monitored bed for further management. Patient was also found to be in A. fib with RVR. Patient underwent cookie swallow which was positive for aspiration case discussed with family specifically patient's who initially wanted the patient to undergo a feeding tube placement patient however declined patient was therefore discharged to a residential facility with palliative care Hospital course as elicited above by Irena Agudelo ; Total time spent on discharge process 40 minutes Code Visit Inpatient E&M: [id number] Disch Hosp
[2017-06-06] MEDS: dilTIAZem CD 120 MG Capsule PO (14:47)
--- NOTE | 2017-06-06 16:38 | NURSING ---
PATIENT BEING TRANSFERRED TO TCU
== END 2017-06-06 16:38 | disposition skilled nursing facility (03) | DRG 177 ==
LOC: ED 12:38 → PCU 13:14
PROVIDERS: Admitting Provider Internal Medicine; Emergency Provider Emergency Medicine; Family Provider Family Medicine Geriatric Medicine; PCP Family Medicine Geriatric Medicine; Visit Provider Internal Medicine
DX: J69.0 Pneumonitis due to inhalation of food and vomit (principal); J96.01 Acute respiratory failure with hypoxia; J44.1 Chronic obstructive pulmonary disease with (acute) exacerbation; F03.90 Unspecified dementia, unspecified severity, without behavioral disturbance, psychotic disturbance, mood disturbance, and anxiety; I10 Essential (primary) hypertension; Z79.01 Long term (current) use of anticoagulants; E03.9 Hypothyroidism, unspecified; I48.0 Paroxysmal atrial fibrillation; E78.5 Hyperlipidemia, unspecified; I48.2 Chronic atrial fibrillation; M10.9 Gout, unspecified; D64.9 Anemia, unspecified; I71.4 Abdominal aortic aneurysm, without rupture; R91.8 Other nonspecific abnormal finding of lung field; R94.31 Abnormal electrocardiogram [ECG] [EKG]; R32 Unspecified urinary incontinence; Z66 Do not resuscitate; R31.29 Other microscopic hematuria; Z87.09 Personal history of other diseases of the respiratory system; R13.13 Dysphagia, pharyngeal phase
CPT/HCPCS: 36415; 36600; 71045; 74230; 80053; 80202; 81001; 82803; 83605; 83735; 84100; 85025; 85610; 85730; 87040; 87070; 87086; 87088; 87205; 87449; 87641; 92526; 92611; 93005; 94640; 97110; 97162; 97165; 97530; 97802; 99285; J7030; J7040; J7050; J7120; A4216

== ENCOUNTER 2017-06-06 16:45 | Inpatient (IN) | payer MEDICARE, SELFPAY ==
[2017-06-06 17:41] VITALS: BP 121/85; PULSE 122; RESP 20; TEMP 36.9; O2SAT 92
--- NOTE | 2017-06-06 17:49 | NURSING ---
Patient admitted to room 12 from PCU via bed. Oriented to room and call light system explained.
[2017-06-06 18:18] VITALS: BMI 21.9
[2017-06-06 18:27] VITALS: BMI 22.0
[2017-06-06 20:55] VITALS: O2SAT 99
[2017-06-06] MEDS: Amox/Clavulanate 875 MG Tablet PO (21:15)
[2017-06-06] MEDS: dilTIAZem CD 120 MG Capsule PO (21:16)
[2017-06-06] MEDS: APIXABAN 5 MG TABLET PO (21:19)
[2017-06-06] MEDS: Amiodarone 200 MG Tablet 100 MG PO (21:21)
[2017-06-06] MEDS: Memantine Hydrochloride 10 MG Tablet PO (21:21)
[2017-06-06] MEDS: Tolterodine Tartrate 2 MG CAP.SA PO (21:22)
[2017-06-06 21:30] VITALS: BP 110/80; PULSE 120
[2017-06-06] MEDS: Metoprolol Tartrate 50 MG Tablet PO (21:30)
[2017-06-06] MEDS: Donepezil HCl 10 MG Tablet PO (21:34)
--- NOTE | 2017-06-06 22:21 | PCM.HP.STD ---
Problem List (1) Shortness of breath Status: Acute (2) Hypoxia Status: Acute (3) Aspiration pneumonia Status: Acute (4) Dysphagia Status: Acute (5) Alzheimers disease Status: Chronic (6) Gout Status: Chronic (7) Thoracic aortic aneurysm Status: Chronic (8) Dysthymia Status: Chronic (9) Atrial fibrillation Status: Chronic (10) Overactive bladder Status: Chronic (11) Coronary artery disease Status: Chronic (12) Influenza B Status: Chronic Comment: diagnosed 05/25/17 and received 5 days of Tamiflu (13) CAP (community acquired pneumonia) Status: Acute (14) Hyperlipidemia Status: Chronic (15) Hypothyroidism Status: Chronic (16) Hypertension Status: Chronic Qualifiers: History of Present Illness Date of Admission: 06/06/17 Chief Complaint: Here for rehabilitation, strengthening, speech therapy, prior to disposition determination, may consider hospice in near future. The patient is a 82 year old Male with below past medical history presented to [facility] Emergency Department 06/02/[address] Jorgensen's office with hypoxia, hypotension, pneumonia on CT scan at [facility]. No alert, but oriented, cough of gold sputum. Treated for influenza B with 5 days of Tamiflu, cefdinir, Z-naheed, Prednisone taper. EKG sinus rhythm with 1st degree AV block with PAC's. Chest X-ray showed multilobar pneumonia. WBC okay, Hemoglobin 10, Hematocrit 32.8. BMP okay, INR 1.7. ABG showed respiratory alkalosis. IV fluid bolus given, Duoneb, Albuterol given. Rocephin, Azithromycin, Vancomycin given. 06/02/2017 Admit to Hospital. Zosyn, Vancomycin for community acquired pneumonia. Bronchodilators, budesonide around the block. 06/03/2017 Zosyn, Vancomycin for aspiration pneumonia. Seroquel for owning. 06/04/2017 MRSA nasal swab negative, stop Vancomycin. Continue Zosyn for aspiration pneumonia. Seroquel for owning. Modified barium swallow to evaluate for aspiration. 06/05/2017 MBS recommended NPO status. IV Lopressor, and IV Cardizem for atrial fibrillation with rapid ventricular response. Patient declining PEG tube. Pureed diet, nectar thick liquids knowing risk of aspiration high. Augmentin for 5 more days for aspiration pneumonia. Consider hospice if swallowing does not improve. He will eventually of aspiration pneumonia, unfortunately. 06/06/2017 Admit to TCU for rehabilitation, strengthening, speech therapy, prior to disposition determination, may consider hospice referral in near future. Past Medical History Past Medical History (Chronic Problems): Chronic Problems (Last Updated 04/20/17 @ 15:56 by Kecia Fernandez) Alzheimers disease (Chronic) Gout (Chronic) Thoracic aortic aneurysm (Chronic) Dysthymia (Chronic) Atrial fibrillation (Chronic) Overactive bladder (Chronic) Coronary artery disease (Chronic) Influenza B (Chronic) diagnosed 05/25/17 and received 5 days of Tamiflu Chronic anticoagulation (Chronic) Abnormal EKG (Chronic) Thoracic aortic aneurysm, without rupture (Chronic) Paroxysmal atrial fibrillation (Chronic) Hyperlipidemia (Chronic) Dementia (Chronic) Hypothyroidism (Chronic) Hypertension (Chronic) Chronic atrial fibrillation (Chronic) Allergies No Known Allergies Allergy (Verified 06/02/17 11:32) Home Medications: Ambulatory Orders Medication Instructions Recorded Allopurinol [Zyloprim] 300 mg PO DAILY 09/23/15 Amiodarone HCl 100 mg PO QHS 09/23/15 Tolterodine Tartrate [Detrol] 2 mg PO QHS 09/23/15 Apixaban [Eliquis] 5 mg PO BID 12/08/16 Cyanocobalamin [Vitamin B12] 1,000 mg PO DAILY 12/08/16 Lisinopril [Zestril] 10 mg PO DAILY 02/17/17 nitroglycerin 0.4 mg sublingual 0.4 mg SUBLINGUAL Q5M PRN 04/08/17 tablet levothyroxine 50 mcg capsule 50 mcg PO QDAY cap 04/15/17 ascorbic acid (vitamin C) 500 mg 500 mg PO QDAY 04/16/17 tablet cholecalciferol (vitamin D3) 1,000 1,000 unit PO ONCE 04/16/17 unit capsule Memantine HCl/Donepezil HCl 1 each PO QHS 04/29/17 [Namzaric 28 mg-10 mg Capsule] Albuterol Aerosols [Ventolin 2.5 mg INHALATION Q2H PRN PRN 06/06/17 Aerosols] vial.neb. Amox/Clavulanate Tablet [Augmentin 875 mg PO Q12H 06/06/17 Tablet] Budesonide Aerosol [Pulmicort 0.5 mg INHALATION BID.RT 06/06/17 Respules] Diltiazem CD [Cardizem CD] 120 mg PO BID 06/06/17 Ipratropium/Albuterol Sulfate 3 ml INHALATION Q6H.RT 06/06/17 [Duoneb] Metoprolol Tartrate 50 mg PO BID 06/06/17 Surgical History: noncontributory Psychiatric History: Depression Lives: Spouse/ Significant Other Smoking Status: Never smoker Tobacco Use: Non-smoker Alcohol: None Drugs: None - *Family History Maternal History Items: No pertinent history Paternal History Items: No pertinent history Review of Systems Constitutional: Denies: Chills, Fever, Weight Change HEENT: Denies: Head Aches, Sinus Congestion, Sinus Drainage Cardiovascular: Denies: Chest Pain, Palpitations Respiratory: Denies: Cough, Shortness of breath at rest, Sputum production Gastrointestinal: Denies: Abdominal Pain, Nausea, Vomiting Genitourinary: Denies: Dysuria Musculoskeletal: Denies: Joint Pain, Joint Tenderness Skin: Denies: Rash, Wounds Neurological: Denies: Numbness, Tingling, Focal weakness Psychiatric: Denies: Anxiety, Depression, Homicidal Ideations, Suicidal Ideations Hematologic/ Lymphatic: Denies: Easy Bruising, Easy Bleeding VTE Information - Inpt Only VTE Present on Admission: No VTE Mechan Device Prophylaxis: Knee High GOOD Hose VTE Pharm Prophylaxis ordered?: No Reason prophylaxis not ordered:: Treatment Not Indicated Patient Problems: Active and Suspected Problems (Last Updated 04/20/17 @ 15:56 by Kecia Fernandez) Shortness of breath (Acute) Hypoxia (Acute) Aspiration pneumonia (Acute) Dysphagia (Acute) - Physical Exam General: Alert, Oriented x3, Cooperative HEENT: Atraumatic, PERRLA, EOMI, Normocephalic Neck: Supple, No JVD, Negative Carotid Bruits Lungs: Diminished, Short of Breath, Wheezes Cardiovascular: Regular rate, No murmurs Abdomen: Bowel Sounds Present, Soft, Non Tender Extremities: No edema, Capillary Refill Less than 3 Seconds Skin: No rashes, No breakdown Musculoskeletal: No Tenderness to Palpation of Joints or Extremities Neurological: Cranial nerves II-XII grossly intact Psych/Mental Status: Normal Affect, Appropriate Vital Signs Temp Pulse Resp BP Pulse Ox 98.4 F 120 H 20 H 110/80 92 06/06/17 17:41 06/06/17 21:30 06/06/17 17:41 06/06/17 21:30 06/06/17 17:41 Oxygen Flow Rate (L/min) 3 Oxygen Delivery Method Nasal Cannula Weight: 73.5 kg Body Mass Index (BMI) 21.9 Intake and Output for Last 24 Hours 06/04/17 06/05/17 06/06/17 23:59 23:59 23:59 Intake Total 60 / 60 Balance 60 / 60 Assessment/Plan Active and Suspected Problems (Last Updated 04/20/17 @ 15:56 by Kecia Fernandez) Shortness of breath (Acute) Hypoxia (Acute) Aspiration pneumonia (Acute) Dysphagia (Acute) 82 year old male with below past medical history significant for Alzheimer's Disease, hospitalized for aspiration pneumonia after treatment for influenza B, failed modified barium swallow, declined PEG tube, admitted to TCU with debility, here for rehabilitation, strengthening, speech therapy, prior to disposition determination, may consider hospice referral in near future. Debility - PT/OT. Dysphagia - ST, Pureed diet, nectar thick fluids, PEG declined, aspiration risk high. Pain - Tylenol 1000MG Q8H PRN mild pain. Bowel - Miralax 17GM daily, Senna/colace 1 tablet BID, Dulcolax 10MG VA daily PRN. Pneumonia vaccination - Administer Prevnar 13 and/or Pneumovax 23 as necessary. DVT prophylaxis - Not necessary, on Eliquis. Shortness of Breath - Duoneb 3ML Q6H, Albuterol 2.5MG Q2H PRN, Budesonide 0.5MG BID. Gout - Allopurinol 300MG daily. Atrial Fibrillation - Amiodarone 100MG QHS, Metoprolol 50MG BID, Diltiazem 120MG BID, Eliquis 5MG BID. Aspiration pneumonia - Augmentin 875MG Q12H thru 06/11/2017, if aspiration pneumonia recurs, consider antibiotics until family can gather, then referral to inpatient hospice. Vitamin C deficiency - Vitamin C 500MG daily. Vitamin D deficiency - D3 1000IU daily. Vitamin B12 deficiency - B12 1000MCG daily. Alzheimer's Disease - Donepezil 10MG QHS, Memantine 10MG BID. Hypothyroidism - Levothyroxine 50MCG daily. Coronary Artery Disease - Metoprolol 50MG BID, Lisinopril 10MG daily, NTG 0.4MG Q5M PRN. Overactive bladder - Tolterodine 2MG QHS.
--- NOTE | 2017-06-06 22:32 | HP.PCM_ITS ---
Problem List (1) Shortness of breath Status: Acute (2) Hypoxia Status: Acute (3) Aspiration pneumonia Status: Acute (4) Dysphagia Status: Acute (5) Alzheimers disease Status: Chronic (6) Gout Status: Chronic (7) Thoracic aortic aneurysm Status: Chronic (8) Dysthymia Status: Chronic (9) Atrial fibrillation Status: Chronic (10) Overactive bladder Status: Chronic (11) Coronary artery disease Status: Chronic (12) Influenza B Status: Chronic Comment: diagnosed 05/25/17 and received 5 days of Tamiflu (13) CAP (community acquired pneumonia) Status: Acute (14) Hyperlipidemia Status: Chronic (15) Hypothyroidism Status: Chronic (16) Hypertension Status: Chronic Qualifiers: History of Present Illness Date of Admission: 06/06/17 Chief Complaint: Here for rehabilitation, strengthening, speech therapy, prior to disposition determination, may consider hospice in near future. The patient is a 82 year old Male with below past medical history presented to [facility] Emergency Department 06/02/[address] Jorgensen's office with hypoxia, hypotension, pneumonia on CT scan at [facility]. No alert, but oriented, cough of gold sputum. Treated for influenza B with 5 days of Tamiflu, cefdinir, Z-naheed, Prednisone taper. EKG sinus rhythm with 1st degree AV block with PAC's. Chest X-ray showed multilobar pneumonia. WBC okay, Hemoglobin 10, Hematocrit 32.8. BMP okay, INR 1.7. ABG showed respiratory alkalosis. IV fluid bolus given, Duoneb, Albuterol given. Rocephin, Azithromycin, Vancomycin given. 06/02/2017 Admit to Hospital. Zosyn, Vancomycin for community acquired pneumonia. Bronchodilators, budesonide around the block. 06/03/2017 Zosyn, Vancomycin for aspiration pneumonia. Seroquel for owning. 06/04/2017 MRSA nasal swab negative, stop Vancomycin. Continue Zosyn for aspiration pneumonia. Seroquel for owning. Modified barium swallow to evaluate for aspiration. 06/05/2017 MBS recommended NPO status. IV Lopressor, and IV Cardizem for atrial fibrillation with rapid ventricular response. Patient declining PEG tube. Pureed diet, nectar thick liquids knowing risk of aspiration high. Augmentin for 5 more days for aspiration pneumonia. Consider hospice if swallowing does not improve. He will eventually of aspiration pneumonia, unfortunately. 06/06/2017 Admit to TCU for rehabilitation, strengthening, speech therapy, prior to disposition determination, may consider hospice referral in near future. Past Medical History Past Medical History (Chronic Problems): Chronic Problems (Last Updated 04/20/17 @ 15:56 by Kecia Fernandez) Alzheimers disease (Chronic) Gout (Chronic) Thoracic aortic aneurysm (Chronic) Dysthymia (Chronic) Atrial fibrillation (Chronic) Overactive bladder (Chronic) Coronary artery disease (Chronic) Influenza B (Chronic) diagnosed 05/25/17 and received 5 days of Tamiflu Chronic anticoagulation (Chronic) Abnormal EKG (Chronic) Thoracic aortic aneurysm, without rupture (Chronic) Paroxysmal atrial fibrillation (Chronic) Hyperlipidemia (Chronic) Dementia (Chronic) Hypothyroidism (Chronic) Hypertension (Chronic) Chronic atrial fibrillation (Chronic) Allergies No Known Allergies Allergy (Verified 06/02/17 11:32) Home Medications: Ambulatory Orders Medication Instructions Recorded Allopurinol [Zyloprim] 300 mg PO DAILY 09/23/15 Amiodarone HCl 100 mg PO QHS 09/23/15 Tolterodine Tartrate [Detrol] 2 mg PO QHS 09/23/15 Apixaban [Eliquis] 5 mg PO BID 12/08/16 Cyanocobalamin [Vitamin B12] 1,000 mg PO DAILY 12/08/16 Lisinopril [Zestril] 10 mg PO DAILY 02/17/17 nitroglycerin 0.4 mg sublingual 0.4 mg SUBLINGUAL Q5M PRN 04/08/17 tablet levothyroxine 50 mcg capsule 50 mcg PO QDAY cap 04/15/17 ascorbic acid (vitamin C) 500 mg 500 mg PO QDAY 04/16/17 tablet cholecalciferol (vitamin D3) 1,000 1,000 unit PO ONCE 04/16/17 unit capsule Memantine HCl/Donepezil HCl 1 each PO QHS 04/29/17 [Namzaric 28 mg-10 mg Capsule] Albuterol Aerosols [Ventolin 2.5 mg INHALATION Q2H PRN PRN 06/06/17 Aerosols] vial.neb. Amox/Clavulanate Tablet [Augmentin 875 mg PO Q12H 06/06/17 Tablet] Budesonide Aerosol [Pulmicort 0.5 mg INHALATION BID.RT 06/06/17 Respules] Diltiazem CD [Cardizem CD] 120 mg PO BID 06/06/17 Ipratropium/Albuterol Sulfate 3 ml INHALATION Q6H.RT 06/06/17 [Duoneb] Metoprolol Tartrate 50 mg PO BID 06/06/17 Surgical History: noncontributory Psychiatric History: Depression Lives: Spouse/ Significant Other Smoking Status: Never smoker Tobacco Use: Non-smoker Alcohol: None Drugs: None - *Family History Maternal History Items: No pertinent history Paternal History Items: No pertinent history Review of Systems Constitutional: Denies: Chills, Fever, Weight Change HEENT: Denies: Head Aches, Sinus Congestion, Sinus Drainage Cardiovascular: Denies: Chest Pain, Palpitations Respiratory: Denies: Cough, Shortness of breath at rest, Sputum production Gastrointestinal: Denies: Abdominal Pain, Nausea, Vomiting Genitourinary: Denies: Dysuria Musculoskeletal: Denies: Joint Pain, Joint Tenderness Skin: Denies: Rash, Wounds Neurological: Denies: Numbness, Tingling, Focal weakness Psychiatric: Denies: Anxiety, Depression, Homicidal Ideations, Suicidal Ideations Hematologic/ Lymphatic: Denies: Easy Bruising, Easy Bleeding VTE Information - Inpt Only VTE Present on Admission: No VTE Mechan Device Prophylaxis: Knee High GOOD Hose VTE Pharm Prophylaxis ordered?: No Reason prophylaxis not ordered:: Treatment Not Indicated Patient Problems: Active and Suspected Problems (Last Updated 04/20/17 @ 15:56 by Kecia Fernandez) Shortness of breath (Acute) Hypoxia (Acute) Aspiration pneumonia (Acute) Dysphagia (Acute) - Physical Exam General: Alert, Oriented x3, Cooperative HEENT: Atraumatic, PERRLA, EOMI, Normocephalic Neck: Supple, No JVD, Negative Carotid Bruits Lungs: Diminished, Short of Breath, Wheezes Cardiovascular: Regular rate, No murmurs Abdomen: Bowel Sounds Present, Soft, Non Tender Extremities: No edema, Capillary Refill Less than 3 Seconds Skin: No rashes, No breakdown Musculoskeletal: No Tenderness to Palpation of Joints or Extremities Neurological: Cranial nerves II-XII grossly intact Psych/Mental Status: Normal Affect, Appropriate Vital Signs Temp Pulse Resp BP Pulse Ox 98.4 F 120 H 20 H 110/80 92 06/06/17 17:41 06/06/17 21:30 06/06/17 17:41 06/06/17 21:30 06/06/17 17:41 Oxygen Flow Rate (L/min) 3 Oxygen Delivery Method Nasal Cannula Weight: 73.5 kg Body Mass Index (BMI) 21.9 Intake and Output for Last 24 Hours 06/04/17 06/05/17 06/06/17 23:59 23:59 23:59 Intake Total 60 / 60 Balance 60 / 60 Assessment/Plan Active and Suspected Problems (Last Updated 04/20/17 @ 15:56 by Kecia Fernandez) Shortness of breath (Acute) Hypoxia (Acute) Aspiration pneumonia (Acute) Dysphagia (Acute) 82 year old male with below past medical history significant for Alzheimer's Disease, hospitalized for aspiration pneumonia after treatment for influenza B, failed modified barium swallow, declined PEG tube, admitted to TCU with debility , here for rehabilitation, strengthening, speech therapy, prior to disposition determination, may consider hospice referral in near future. * Debility - PT/OT. * Dysphagia - ST, Pureed diet, nectar thick fluids, PEG declined, aspiration risk high. * Pain - Tylenol 1000MG Q8H PRN mild pain. * Bowel - Miralax 17GM daily, Senna/colace 1 tablet BID, Dulcolax 10MG CA daily PRN. * Pneumonia vaccination - Administer Prevnar 13 and/or Pneumovax 23 as necessary. * DVT prophylaxis - Not necessary, on Eliquis. * Shortness of Breath - Duoneb 3ML Q6H, Albuterol 2.5MG Q2H PRN, Budesonide 0.5MG BID. * Gout - Allopurinol 300MG daily. * Atrial Fibrillation - Amiodarone 100MG QHS, Metoprolol 50MG BID, Diltiazem 120MG BID, Eliquis 5MG BID. * Aspiration pneumonia - Augmentin 875MG Q12H thru 06/11/2017, if aspiration pneumonia recurs, consider antibiotics until family can gather, then referral to inpatient hospice. * Vitamin C deficiency - Vitamin C 500MG daily. * Vitamin D deficiency - D3 1000IU daily. * Vitamin B12 deficiency - B12 1000MCG daily. * Alzheimer's Disease - Donepezil 10MG QHS, Memantine 10MG BID. * Hypothyroidism - Levothyroxine 50MCG daily. * Coronary Artery Disease - Metoprolol 50MG BID, Lisinopril 10MG daily, NTG 0.4MG Q5M PRN. * Overactive bladder - Tolterodine 2MG QHS.
[2017-06-07] MEDS: Amox/Clavulanate 875 MG Tablet PO ×2 (06:02→17:46)
[2017-06-07 06:03] VITALS: BP 129/86; PULSE 119
[2017-06-07] MEDS: Metoprolol Tartrate 50 MG Tablet PO ×2 (06:03→17:45)
[2017-06-07] MEDS: APIXABAN 5 MG TABLET PO ×2 (06:03→17:46)
[2017-06-07] MEDS: dilTIAZem CD 120 MG Capsule PO ×2 (06:03→17:46)
[2017-06-07] MEDS: Memantine Hydrochloride 10 MG Tablet PO ×2 (06:05→17:49)
[2017-06-07] MEDS: Levothyroxine 50 MCG Tablet PO (06:06)
[2017-06-07] MEDS: Ascorbic Acid 500 MG Tablet PO (06:06)
[2017-06-07] MEDS: Senna/Docusate Sodium 1 Tablet PO ×2 (06:06→17:50)
[2017-06-07] MEDS: Lisinopril 10 MG Tablet PO (06:07)
[2017-06-07] MEDS: Allopurinol 300 MG Tablet PO (06:07)
[2017-06-07 07:31] LABS: Absolute Lymphocyte Count 0.87 X10^3/ul (0.83-4.51); Absolute Neutrophil Count 10.8 X10^3/uL (2.0-7.7); Basophil# 0.01 X10^3/uL; Basophil% 0.1 % (0-1); Eosinophil# 0.08 X10^3/uL; Eosinophils% 0.6 % (0-5); Hematocrit 33.9 % (40-54); Hemoglobin 10.8 g/dl (13.0-16.5); Lymphocyte # 0.87 X10^3/ul (4.0); Mean Corp Hgb Conc 31.9 g/gl (32-36); Mean Corpuscular Volume 94.2 fL (80-94); Mean Platelet Vol. 10.2 fl (6.2-12.0); Monocyte# 0.62 X10^3/uL; Neutrophil # 10.78 X10^3/uL (2.7-7.7); Neutrophil % 87.1 % (47-70); Platelet Count 281 K/mm3 (150-450); RBC Distribution Width CV 16.1 % (11.6-14.6); RBC Distribution Width SD 55.2 fl (35.1-43.9); White Blood Count 12.4 K/mm3 (4.4-11.0)
[2017-06-07 07:32] LABS: POSITIVE COUNT NO; POSITIVE DIFFERENTIAL NO; POSITIVE MORPHOLOGY NO
[2017-06-07 07:39] LABS: Anion Gap 8 (5-15); BUN 14 mg/dL (7-18); BUN/Creat Ratio 16.7 RATIO (10-20); Calcium,Total 8.2 mg/dL (8.5-10.1); Chloride 108 mmol/L (98-107); Creatinine, Serum 0.84 mg/dL (0.70-1.30); EST Glomerular Filtration Rate 93 mL/min (>60); Est Glom Filt Rate - Afr Amer 113 mL/min (>60); Estimated Creatinine Clearance 70.49 ml/min; Glucose 108 mg/dL (74-106); Sodium Level 140 mmol/L (136-145)
[2017-06-07] MEDS: Cyanocobalamin 500 MCG Tablet 1000 MCG PO (08:41)
[2017-06-07 10:00] VITALS: RESP 20
--- NOTE | 2017-06-07 12:02 | PCM.PN.RX ---
<Edwin Perez D - Last Filed: 06/07/17 12:02> Progress Note - Pharmacy Subjective: TCU Admission Objective: Allergies No Known Allergies Allergy (Verified 06/02/17 11:32) Home Medications Medication Instructions Recorded Allopurinol [Zyloprim] 300 mg PO DAILY 09/23/15 Amiodarone HCl 100 mg PO QHS 09/23/15 Tolterodine Tartrate [Detrol] 2 mg PO QHS 09/23/15 Apixaban [Eliquis] 5 mg PO BID 12/08/16 Cyanocobalamin [Vitamin B12] 1,000 mg PO DAILY 12/08/16 Lisinopril [Zestril] 10 mg PO DAILY 02/17/17 nitroglycerin 0.4 mg sublingual 0.4 mg SUBLINGUAL Q5M PRN 04/08/17 tablet levothyroxine 50 mcg capsule 50 mcg PO QDAY cap 04/15/17 ascorbic acid (vitamin C) 500 mg 500 mg PO QDAY 04/16/17 tablet cholecalciferol (vitamin D3) 1,000 1,000 unit PO ONCE 04/16/17 unit capsule Memantine HCl/Donepezil HCl 1 each PO QHS 04/29/17 [Namzaric 28 mg-10 mg Capsule] Albuterol Aerosols [Ventolin 2.5 mg INHALATION Q2H PRN PRN 06/06/17 Aerosols] vial.neb. Amox/Clavulanate Tablet [Augmentin 875 mg PO Q12H 06/06/17 Tablet] Budesonide Aerosol [Pulmicort 0.5 mg INHALATION BID.RT 06/06/17 Respules] Diltiazem CD [Cardizem CD] 120 mg PO BID 06/06/17 Ipratropium/Albuterol Sulfate 3 ml INHALATION Q6H.RT 06/06/17 [Duoneb] Metoprolol Tartrate 50 mg PO BID 06/06/17 Current Medications Generic Name Dose Route Start Last Admin Trade Name Freq PRN Reason Stop Dose Admin Acetaminophen 1,000 mg 06/06/17 22:42 Tylenol PO Q8H PRN PRN MILD PAIN (1-3/10) Albuterol Sulfate 2.5 mg 06/06/17 17:57 Ventolin Aerosols INHALATION Q2H PRN PRN SHORTNESS OF BREATH Albuterol/Ipratropium 3 ml 04/14/18 18:00 06/07/17 08:17 Duoneb INHALATION Not Given Q6H.RT STEPHANY Allopurinol 300 mg 06/07/17 06:00 06/07/17 06:07 Zyloprim PO 300 mg DAILY STEPHANY Administration Amiodarone HCl 100 mg 06/06/17 22:00 06/06/17 21:21 Cordarone PO 100 mg QHS STEPHANY Administration Amoxicillin/Clavulanate Potassium 875 mg 06/06/17 18:00 06/07/17 06:02 Augmentin Tablet PO 06/11/17 06:01 875 mg Q12H STEPHANY Administration Apixaban 5 mg 06/06/17 18:00 06/07/17 06:03 Eliquis PO 5 mg BID STEPHANY Administration Ascorbic Acid 500 mg 06/07/17 06:00 06/07/17 06:06 Vitamin C PO 500 mg DAILY STEPHANY Administration Bisacodyl 10 mg 06/06/17 22:43 Dulcolax RECTAL DAILY PRN Constipation Budesonide 0.5 mg 06/06/17 18:00 06/07/17 08:18 Pulmicort Aerosol INHALATION Not Given BID.RT STEPHANY Cholecalciferol 1,000 unit 06/07/17 06:00 06/07/17 06:06 Vitamin D PO 1,000 unit DAILY STEPHANY Administration Cyanocobalamin 1,000 mcg 06/07/17 08:00 06/07/17 08:41 Vitamin B12 PO 1,000 mcg DAILY@0800 STEPHANY Administration Diltiazem HCl 120 mg 06/06/17 18:00 06/07/17 06:03 Cardizem Cd PO 120 mg BID STEPHANY Administration Donepezil HCl 10 mg 06/06/17 22:00 06/06/17 21:34 Aricept PO 10 mg QHS STEPHANY Administration Levothyroxine Sodium 50 mcg 06/07/17 06:00 06/07/17 06:06 Synthroid PO 50 mcg DAILY@0600 STEPHANY Administration Lisinopril 10 mg 06/07/17 06:00 06/07/17 06:07 Zestril PO 10 mg DAILY STEPHANY Administration Memantine 10 mg 06/06/17 18:15 06/07/17 06:05 Namenda PO 10 mg BID STEPHANY Administration Metoprolol Tartrate 50 mg 06/06/17 18:00 06/07/17 06:03 Lopressor (Beta Flaco) PO 50 mg BID STEPHANY Administration Nitroglycerin 0.4 mg 06/06/17 17:57 Nitrostat SUBLINGUAL Q5M PRN CHEST PAIN Polyethylene Glycol 17 gm 06/07/17 06:00 06/07/17 06:04 Miralax PO Not Given DAILY [facility] Senna/Docusate Sodium 1 tablet 06/07/17 06:00 06/07/17 06:06 Senokot-S, Ivri-Colace PO 1 tablet BID STEPHANY Administration Tolterodine Tartrate 2 mg 06/06/17 22:00 06/06/17 21:22 Detrol La PO 2 mg QHS STEPHANY Administration Tuberculin PPD 5 tu 06/14/17 10:00 Tubersol, Aplisol, Ppd ID 06/14/17 10:01 X1 ONE Problem List (Last Updated 04/20/17 @ 15:56 by Kecia Fernandez) Shortness of breath (Acute) Hypoxia (Acute) Aspiration pneumonia (Acute) Dysphagia (Acute) Alzheimers disease (Chronic) Gout (Chronic) Thoracic aortic aneurysm (Chronic) Dysthymia (Chronic) Atrial fibrillation (Chronic) Overactive bladder (Chronic) Coronary artery disease (Chronic) Vital Signs Temp Pulse Resp BP Pulse Ox 98.4 F 119 H 20 H 129/86 H 99 06/06/17 17:41 06/07/17 06:03 06/06/17 17:41 06/07/17 06:03 06/06/17 20:55 Oxygen Flow Rate (L/min) 3 Oxygen Delivery Method Nasal Cannula Weight: 73.5 kg Body Mass Index (BMI) 21.9 Sodium 140 mmol/L (136-145) 06/07/17 07:06 Potassium 4.0 mmol/L (3.5-5.1) 06/07/17 07:06 Chloride 108 mmol/L (98-107) H 06/07/17 07:06 Carbon Dioxide 24.0 mmol/L (21.0-32.0) 06/07/17 07:06 Anion Gap 8 (5-15) 06/07/17 07:06 BUN 14 mg/dL (7-18) 06/07/17 07:06 Creatinine 0.84 mg/dL (0.70-1.30) 06/07/17 07:06 Est GFR (MDRD) Af Amer 113 mL/min (>60) 06/07/17 07:06 Est GFR (MDRD) Non-Af 93 mL/min (>60) 06/07/17 07:06 BUN/Creatinine Ratio 16.7 RATIO (10-20) 06/07/17 07:06 Glucose 108 mg/dL (74-106) H 06/07/17 07:06 Assessment/Plan: 1) Pain APAP for mild pain. Continue to monitor daily pain scores, prn medication use. 2) Pulm Duoneb aerosols scheduled, albuterol as needed, budesonide twice daily. Continue to monitor prn medication use, for shortness of breath. 3) CAD/AFib Metoprolol, lisinopril, prn ntg, apixaban, amiodarone, diltiazem twice daily. BP wnl, BP above goal range, BUN/SCr at baseline, K wnl, Hgb/Hct at baseline. Continue to monitor BP/HR, renal function, electrolytes, prn medication use, for chest pain, s/s bleeding. 4) ID Amoxicillin/clavulanate for aspiration until 06/11. WBC increased from previous, tachycardic, afebrile. Continue to monitor s/s infection. 5) Overactive Bladder Tolterodine at HS. Continue to monitor symptoms. 6) Alzheimer's Memantine twice daily, donepezil at HS. Continue to monitor clinically. 7) Hypothyroidism Levothyroxine daily. Continue to monitor s/s hyper/hypothyroidism. 8) Gout Allopurinol daily. Continue to monitor s/s gout. 9) Nutrition Ascorbic acid, D, B12. Continue to monitor clinically. Psychotropic Medications: None Unnecessary Medications: None Bowel Regimen: 10) Senna/s, PEG, prn bisacodyl. Continue to monitor prn medication use, for constipation/diarrhea. Date of Note:: 06/07/17 - Provider Comments Provider responsibility: Provider responsible to enter orders to implement recommendations <Gerson Jorgensen Chi - Last Filed: 06/07/17 13:32> Progress Note - Pharmacy Subjective: [] Objective: Allergies No Known Allergies Allergy (Verified 06/02/17 11:32) Home Medications Medication Instructions Recorded Allopurinol [Zyloprim] 300 mg PO DAILY 07/31/16 Amiodarone HCl 100 mg PO QHS 09/23/15 Tolterodine Tartrate [Detrol] 2 mg PO QHS 09/23/15 Apixaban [Eliquis] 5 mg PO BID 12/08/16 Cyanocobalamin [Vitamin B12] 1,000 mg PO DAILY 12/08/16 Lisinopril [Zestril] 10 mg PO DAILY 02/17/17 nitroglycerin 0.4 mg sublingual 0.4 mg SUBLINGUAL Q5M PRN 04/08/17 tablet levothyroxine 50 mcg capsule 50 mcg PO QDAY cap 04/15/17 ascorbic acid (vitamin C) 500 mg 500 mg PO QDAY 04/16/17 tablet cholecalciferol (vitamin D3) 1,000 1,000 unit PO ONCE 04/16/17 unit capsule Memantine HCl/Donepezil HCl 1 each PO QHS 04/29/17 [Namzaric 28 mg-10 mg Capsule] Albuterol Aerosols [Ventolin 2.5 mg INHALATION Q2H PRN PRN 06/06/17 Aerosols] vial.neb. Amox/Clavulanate Tablet [Augmentin 875 mg PO Q12H 06/06/17 Tablet] Budesonide Aerosol [Pulmicort 0.5 mg INHALATION BID.RT 06/06/17 Respules] Diltiazem CD [Cardizem CD] 120 mg PO BID 06/06/17 Ipratropium/Albuterol Sulfate 3 ml INHALATION Q6H.RT 06/06/17 [Duoneb] Metoprolol Tartrate 50 mg PO BID 06/06/17 Current Medications Generic Name Dose Route Start Last Admin Trade Name Freq PRN Reason Stop Dose Admin Acetaminophen 1,000 mg 06/06/17 22:42 Tylenol PO Q8H PRN PRN MILD PAIN (1-3/10) Albuterol Sulfate 2.5 mg 06/06/17 17:57 Ventolin Aerosols INHALATION Q2H PRN PRN SHORTNESS OF BREATH Albuterol/Ipratropium 3 ml 06/06/17 18:00 06/07/17 08:17 Duoneb INHALATION Not Given Q6H.RT STEPHANY Allopurinol 300 mg 06/07/17 06:00 06/07/17 06:07 Zyloprim PO 300 mg DAILY STEPHANY Administration Amiodarone HCl 100 mg 06/06/17 22:00 06/06/17 21:21 Cordarone PO 100 mg QHS [facility] Administration Amoxicillin/Clavulanate Potassium 875 mg 06/06/17 18:00 06/07/17 06:02 Augmentin Tablet PO 06/11/17 06:01 875 mg Q12H STEPHANY Administration Apixaban 5 mg 06/06/17 18:00 06/07/17 06:03 Eliquis PO 5 mg BID [facility] Administration Ascorbic Acid 500 mg 06/07/17 06:00 06/07/17 06:06 Vitamin C PO 500 mg DAILY [facility] Administration Bisacodyl 10 mg 06/06/17 22:43 Dulcolax RECTAL DAILY PRN Constipation Budesonide 0.5 mg 06/06/17 18:00 06/07/17 08:18 Pulmicort Aerosol INHALATION Not Given BID.RT STEPHANY Cholecalciferol 1,000 unit 06/07/17 06:00 06/07/17 06:06 Vitamin D PO 1,000 unit DAILY [facility] Administration Cyanocobalamin 1,000 mcg 06/07/17 08:00 06/07/17 08:41 Vitamin B12 PO 1,000 mcg DAILY@0800 [facility] Administration Diltiazem HCl 120 mg 06/06/17 18:00 06/07/17 06:03 Cardizem Cd PO 120 mg BID [facility] Administration Donepezil HCl 10 mg 06/06/17 22:00 06/06/17 21:34 Aricept PO 10 mg QHS [facility] Administration Levothyroxine Sodium 50 mcg 06/07/17 06:00 06/07/17 06:06 Synthroid PO 50 mcg DAILY@0600 [facility] Administration Lisinopril 10 mg 06/07/17 06:00 06/07/17 06:07 Zestril PO 10 mg DAILY [facility] Administration Memantine 10 mg 06/06/17 18:15 06/07/17 06:05 Namenda PO 10 mg BID [facility] Administration Metoprolol Tartrate 50 mg 06/06/17 18:00 06/07/17 06:03 Lopressor (Beta Flaco) PO 50 mg BID [facility] Administration Nitroglycerin 0.4 mg 06/06/17 17:57 Nitrostat SUBLINGUAL Q5M PRN CHEST PAIN Polyethylene Glycol 17 gm 06/07/17 06:00 06/07/17 06:04 Miralax PO Not Given DAILY [facility] Senna/Docusate Sodium 1 tablet 06/07/17 06:00 06/07/17 06:06 Senokot-S, Viri-Colace PO 1 tablet BID STEPHANY Administration Tolterodine Tartrate 2 mg 06/06/17 22:00 06/06/17 21:22 Detrol La PO 2 mg QHS STEPHANY Administration Tuberculin PPD 5 tu 06/14/17 10:00 Tubersol, Aplisol, Ppd ID 06/14/17 10:01 X1 ONE Problem List (Last Updated 04/20/17 @ 15:56 by Kecia Fernandez) Shortness of breath (Acute) Hypoxia (Acute) Aspiration pneumonia (Acute) Dysphagia (Acute) Alzheimers disease (Chronic) Gout (Chronic) Thoracic aortic aneurysm (Chronic) Dysthymia (Chronic) Atrial fibrillation (Chronic) Overactive bladder (Chronic) Coronary artery disease (Chronic) Vital Signs Temp Pulse Resp BP Pulse Ox 98.4 F 119 H 20 H 129/86 H 99 06/06/17 17:41 06/07/17 06:03 06/06/17 17:41 06/07/17 06:03 06/06/17 20:55 Oxygen Flow Rate (L/min) 3 Oxygen Delivery Method Nasal Cannula Weight: 73.5 kg Body Mass Index (BMI) 21.9 Sodium 140 mmol/L (136-145) 06/07/17 07:06 Potassium 4.0 mmol/L (3.5-5.1) 06/07/17 07:06 Chloride 108 mmol/L (98-107) H 06/07/17 07:06 Carbon Dioxide 24.0 mmol/L (21.0-32.0) 06/07/17 07:06 Anion Gap 8 (5-15) 06/07/17 07:06 BUN 14 mg/dL (7-18) 06/07/17 07:06 Creatinine 0.84 mg/dL (0.70-1.30) 06/07/17 07:06 Est GFR (MDRD) Af Amer 113 mL/min (>60) 06/07/17 07:06 Est GFR (MDRD) Non-Af 93 mL/min (>60) 06/07/17 07:06 BUN/Creatinine Ratio 16.7 RATIO (10-20) 06/07/17 07:06 Glucose 108 mg/dL (74-106) H 06/07/17 07:06 Assessment/Plan: Psychotropic Medications: Unnecessary Medications: Bowel Regimen: - Provider Comments Provider responsibility: Provider responsible to enter orders to implement recommendations Provider Comments to Recommendations by Pharmacy: Agree
--- NOTE | 2017-06-07 12:10 | PHA.CONS_ITS ---
<Edwin Perez D - Last Filed: 06/07/17 12:02> Progress Note - Pharmacy Subjective: TCU Admission Objective: Allergies No Known Allergies Allergy (Verified 06/02/17 11:32) Home Medications Medication Instructions Recorded Allopurinol [Zyloprim] 300 mg PO DAILY 09/23/15 Amiodarone HCl 100 mg PO QHS 09/23/15 Tolterodine Tartrate [Detrol] 2 mg PO QHS 09/23/15 Apixaban [Eliquis] 5 mg PO BID 12/08/16 Cyanocobalamin [Vitamin B12] 1,000 mg PO DAILY 12/08/16 Lisinopril [Zestril] 10 mg PO DAILY 02/17/17 nitroglycerin 0.4 mg sublingual 0.4 mg SUBLINGUAL Q5M PRN 04/08/17 tablet levothyroxine 50 mcg capsule 50 mcg PO QDAY cap 04/15/17 ascorbic acid (vitamin C) 500 mg 500 mg PO QDAY 04/16/17 tablet cholecalciferol (vitamin D3) 1,000 1,000 unit PO ONCE 04/16/17 unit capsule Memantine HCl/Donepezil HCl 1 each PO QHS 04/29/17 [Namzaric 28 mg-10 mg Capsule] Albuterol Aerosols [Ventolin 2.5 mg INHALATION Q2H PRN PRN 06/06/17 Aerosols] vial.neb. Amox/Clavulanate Tablet [Augmentin 875 mg PO Q12H 06/06/17 Tablet] Budesonide Aerosol [Pulmicort 0.5 mg INHALATION BID.RT 06/06/17 Respules] Diltiazem CD [Cardizem CD] 120 mg PO BID 06/06/17 Ipratropium/Albuterol Sulfate 3 ml INHALATION Q6H.RT 06/06/17 [Duoneb] Metoprolol Tartrate 50 mg PO BID 06/06/17 Current Medications Generic Name Dose Route Start Last Admin Trade Name Freq PRN Reason Stop Dose Admin Acetaminophen 1,000 mg 06/06/17 22:42 Tylenol PO Q8H PRN PRN MILD PAIN (1-3/10) Albuterol Sulfate 2.5 mg 06/06/17 17:57 Ventolin Aerosols INHALATION Q2H PRN PRN SHORTNESS OF BREATH Albuterol/Ipratropium 3 ml 04/14/18 18:00 06/07/17 08:17 Duoneb INHALATION Not Given Q6H.RT STEPHANY Allopurinol 300 mg 06/07/17 06:00 06/07/17 06:07 Zyloprim PO 300 mg DAILY STEPHANY Administration Amiodarone HCl 100 mg 06/06/17 22:00 06/06/17 21:21 Cordarone PO 100 mg QHS STEPHANY Administration Amoxicillin/Clavulanate Potassium 875 mg 06/06/17 18:00 06/07/17 06:02 Augmentin Tablet PO 06/11/17 06:01 875 mg Q12H STEPHANY Administration Apixaban 5 mg 06/06/17 18:00 06/07/17 06:03 Eliquis PO 5 mg BID STEPHANY Administration Ascorbic Acid 500 mg 06/07/17 06:00 06/07/17 06:06 Vitamin C PO 500 mg DAILY STEPHANY Administration Bisacodyl 10 mg 06/06/17 22:43 Dulcolax RECTAL DAILY PRN Constipation Budesonide 0.5 mg 06/06/17 18:00 06/07/17 08:18 Pulmicort Aerosol INHALATION Not Given BID.RT STEPHANY Cholecalciferol 1,000 unit 06/07/17 06:00 06/07/17 06:06 Vitamin D PO 1,000 unit DAILY STEPHANY Administration Cyanocobalamin 1,000 mcg 06/07/17 08:00 06/07/17 08:41 Vitamin B12 PO 1,000 mcg DAILY@0800 STEPHANY Administration Diltiazem HCl 120 mg 06/06/17 18:00 06/07/17 06:03 Cardizem Cd PO 120 mg BID STEPHANY Administration Donepezil HCl 10 mg 06/06/17 22:00 06/06/17 21:34 Aricept PO 10 mg QHS STEPHANY Administration Levothyroxine Sodium 50 mcg 06/07/17 06:00 06/07/17 06:06 Synthroid PO 50 mcg DAILY@0600 STEPHANY Administration Lisinopril 10 mg 06/07/17 06:00 06/07/17 06:07 Zestril PO 10 mg DAILY STEPHANY Administration Memantine 10 mg 06/06/17 18:15 06/07/17 06:05 Namenda PO 10 mg BID STEPHANY Administration Metoprolol Tartrate 50 mg 06/06/17 18:00 06/07/17 06:03 Lopressor (Beta Flaco) PO 50 mg BID STEPHANY Administration Nitroglycerin 0.4 mg 06/06/17 17:57 Nitrostat SUBLINGUAL Q5M PRN CHEST PAIN Polyethylene Glycol 17 gm 06/07/17 06:00 06/07/17 06:04 Miralax PO Not Given DAILY [facility] Senna/Docusate Sodium 1 tablet 06/07/17 06:00 06/07/17 06:06 Senokot-S, Viri-Colace PO 1 tablet BID STEPHANY Administration Tolterodine Tartrate 2 mg 06/06/17 22:00 06/06/17 21:22 Detrol La PO 2 mg QHS STEPHANY Administration Tuberculin PPD 5 tu 06/14/17 10:00 Tubersol, Aplisol, Ppd ID 06/14/17 10:01 X1 ONE Problem List (Last Updated 04/20/17 @ 15:56 by Kecia Fernandez) Shortness of breath (Acute) Hypoxia (Acute) Aspiration pneumonia (Acute) Dysphagia (Acute) Alzheimers disease (Chronic) Gout (Chronic) Thoracic aortic aneurysm (Chronic) Dysthymia (Chronic) Atrial fibrillation (Chronic) Overactive bladder (Chronic) Coronary artery disease (Chronic) Vital Signs Temp Pulse Resp BP Pulse Ox 98.4 F 119 H 20 H 129/86 H 99 06/06/17 17:41 06/07/17 06:03 06/06/17 17:41 06/07/17 06:03 06/06/17 20:55 Oxygen Flow Rate (L/min) 3 Oxygen Delivery Method Nasal Cannula Weight: 73.5 kg Body Mass Index (BMI) 21.9 Sodium 140 mmol/L (136-145) 06/07/17 07:06 Potassium 4.0 mmol/L (3.5-5.1) 06/07/17 07:06 Chloride 108 mmol/L (98-107) H 06/07/17 07:06 Carbon Dioxide 24.0 mmol/L (21.0-32.0) 06/07/17 07:06 Anion Gap 8 (5-15) 06/07/17 07:06 BUN 14 mg/dL (7-18) 06/07/17 07:06 Creatinine 0.84 mg/dL (0.70-1.30) 06/07/17 07:06 Est GFR (MDRD) Af Amer 113 mL/min (>60) 06/07/17 07:06 Est GFR (MDRD) Non-Af 93 mL/min (>60) 06/07/17 07:06 BUN/Creatinine Ratio 16.7 RATIO (10-20) 06/07/17 07:06 Glucose 108 mg/dL (74-106) H 06/07/17 07:06 Assessment/Plan: 1) Pain APAP for mild pain. Continue to monitor daily pain scores, prn medication use. 2) Pulm Duoneb aerosols scheduled, albuterol as needed, budesonide twice daily. Continue to monitor prn medication use, for shortness of breath. 3) CAD/AFib Metoprolol, lisinopril, prn ntg, apixaban, amiodarone, diltiazem twice daily. BP wnl, BP above goal range, BUN/SCr at baseline, K wnl, Hgb/Hct at baseline. Continue to monitor BP/HR, renal function, electrolytes, prn medication use, for chest pain, s/s bleeding. 4) ID Amoxicillin/clavulanate for aspiration until 06/11. WBC increased from previous, tachycardic, afebrile. Continue to monitor s/s infection. 5) Overactive Bladder Tolterodine at HS. Continue to monitor symptoms. 6) Alzheimer's Memantine twice daily, donepezil at HS. Continue to monitor clinically. 7) Hypothyroidism Levothyroxine daily. Continue to monitor s/s hyper/hypothyroidism. 8) Gout Allopurinol daily. Continue to monitor s/s gout. 9) Nutrition Ascorbic acid, D, B12. Continue to monitor clinically. Psychotropic Medications: None Unnecessary Medications: None Bowel Regimen: 10) Senna/s, PEG, prn bisacodyl. Continue to monitor prn medication use, for constipation/diarrhea. Date of Note:: 06/07/17 - Provider Comments Provider responsibility: Provider responsible to enter orders to implement recommendations <Gerson Jorgensen Chi - Last Filed: 06/07/17 13:32> Progress Note - Pharmacy Subjective: [] Objective: Allergies No Known Allergies Allergy (Verified 06/02/17 11:32) Home Medications Medication Instructions Recorded Allopurinol [Zyloprim] 300 mg PO DAILY 07/31/16 Amiodarone HCl 100 mg PO QHS 09/23/15 Tolterodine Tartrate [Detrol] 2 mg PO QHS 09/23/15 Apixaban [Eliquis] 5 mg PO BID 12/08/16 Cyanocobalamin [Vitamin B12] 1,000 mg PO DAILY 12/08/16 Lisinopril [Zestril] 10 mg PO DAILY 02/17/17 nitroglycerin 0.4 mg sublingual 0.4 mg SUBLINGUAL Q5M PRN 04/08/17 tablet levothyroxine 50 mcg capsule 50 mcg PO QDAY cap 04/15/17 ascorbic acid (vitamin C) 500 mg 500 mg PO QDAY 04/16/17 tablet cholecalciferol (vitamin D3) 1,000 1,000 unit PO ONCE 04/16/17 unit capsule Memantine HCl/Donepezil HCl 1 each PO QHS 04/29/17 [Namzaric 28 mg-10 mg Capsule] Albuterol Aerosols [Ventolin 2.5 mg INHALATION Q2H PRN PRN 06/06/17 Aerosols] vial.neb. Amox/Clavulanate Tablet [Augmentin 875 mg PO Q12H 06/06/17 Tablet] Budesonide Aerosol [Pulmicort 0.5 mg INHALATION BID.RT 06/06/17 Respules] Diltiazem CD [Cardizem CD] 120 mg PO BID 06/06/17 Ipratropium/Albuterol Sulfate 3 ml INHALATION Q6H.RT 06/06/17 [Duoneb] Metoprolol Tartrate 50 mg PO BID 06/06/17 Current Medications Generic Name Dose Route Start Last Admin Trade Name Freq PRN Reason Stop Dose Admin Acetaminophen 1,000 mg 06/06/17 22:42 Tylenol PO Q8H PRN PRN MILD PAIN (1-3/10) Albuterol Sulfate 2.5 mg 06/06/17 17:57 Ventolin Aerosols INHALATION Q2H PRN PRN SHORTNESS OF BREATH Albuterol/Ipratropium 3 ml 06/06/17 18:00 06/07/17 08:17 Duoneb INHALATION Not Given Q6H.RT STEPHANY Allopurinol 300 mg 06/07/17 06:00 06/07/17 06:07 Zyloprim PO 300 mg DAILY STEPHANY Administration Amiodarone HCl 100 mg 06/06/17 22:00 06/06/17 21:21 Cordarone PO 100 mg QHS [facility] Administration Amoxicillin/Clavulanate Potassium 875 mg 06/06/17 18:00 06/07/17 06:02 Augmentin Tablet PO 06/11/17 06:01 875 mg Q12H STEPHANY Administration Apixaban 5 mg 06/06/17 18:00 06/07/17 06:03 Eliquis PO 5 mg BID [facility] Administration Ascorbic Acid 500 mg 06/07/17 06:00 06/07/17 06:06 Vitamin C PO 500 mg DAILY [facility] Administration Bisacodyl 10 mg 06/06/17 22:43 Dulcolax RECTAL DAILY PRN Constipation Budesonide 0.5 mg 06/06/17 18:00 06/07/17 08:18 Pulmicort Aerosol INHALATION Not Given BID.RT STEPHANY Cholecalciferol 1,000 unit 06/07/17 06:00 06/07/17 06:06 Vitamin D PO 1,000 unit DAILY [facility] Administration Cyanocobalamin 1,000 mcg 06/07/17 08:00 06/07/17 08:41 Vitamin B12 PO 1,000 mcg DAILY@0800 [facility] Administration Diltiazem HCl 120 mg 06/06/17 18:00 06/07/17 06:03 Cardizem Cd PO 120 mg BID [facility] Administration Donepezil HCl 10 mg 06/06/17 22:00 06/06/17 21:34 Aricept PO 10 mg QHS [facility] Administration Levothyroxine Sodium 50 mcg 06/07/17 06:00 06/07/17 06:06 Synthroid PO 50 mcg DAILY@0600 [facility] Administration Lisinopril 10 mg 06/07/17 06:00 06/07/17 06:07 Zestril PO 10 mg DAILY [facility] Administration Memantine 10 mg 06/06/17 18:15 06/07/17 06:05 Namenda PO 10 mg BID [facility] Administration Metoprolol Tartrate 50 mg 06/06/17 18:00 06/07/17 06:03 Lopressor (Beta Flaco) PO 50 mg BID [facility] Administration Nitroglycerin 0.4 mg 06/06/17 17:57 Nitrostat SUBLINGUAL Q5M PRN CHEST PAIN Polyethylene Glycol 17 gm 06/07/17 06:00 06/07/17 06:04 Miralax PO Not Given DAILY [facility] Senna/Docusate Sodium 1 tablet 06/07/17 06:00 06/07/17 06:06 Senokot-S, Viri-Colace PO 1 tablet BID STEPHANY Administration Tolterodine Tartrate 2 mg 06/06/17 22:00 06/06/17 21:22 Detrol La PO 2 mg QHS STEPHANY Administration Tuberculin PPD 5 tu 06/14/17 10:00 Tubersol, Aplisol, Ppd ID 06/14/17 10:01 X1 ONE Problem List (Last Updated 04/20/17 @ 15:56 by Kecia Fernandez) Shortness of breath (Acute) Hypoxia (Acute) Aspiration pneumonia (Acute) Dysphagia (Acute) Alzheimers disease (Chronic) Gout (Chronic) Thoracic aortic aneurysm (Chronic) Dysthymia (Chronic) Atrial fibrillation (Chronic) Overactive bladder (Chronic) Coronary artery disease (Chronic) Vital Signs Temp Pulse Resp BP Pulse Ox 98.4 F 119 H 20 H 129/86 H 99 06/06/17 17:41 06/07/17 06:03 06/06/17 17:41 06/07/17 06:03 06/06/17 20:55 Oxygen Flow Rate (L/min) 3 Oxygen Delivery Method Nasal Cannula Weight: 73.5 kg Body Mass Index (BMI) 21.9 Sodium 140 mmol/L (136-145) 06/07/17 07:06 Potassium 4.0 mmol/L (3.5-5.1) 06/07/17 07:06 Chloride 108 mmol/L (98-107) H 06/07/17 07:06 Carbon Dioxide 24.0 mmol/L (21.0-32.0) 06/07/17 07:06 Anion Gap 8 (5-15) 06/07/17 07:06 BUN 14 mg/dL (7-18) 06/07/17 07:06 Creatinine 0.84 mg/dL (0.70-1.30) 06/07/17 07:06 Est GFR (MDRD) Af Amer 113 mL/min (>60) 06/07/17 07:06 Est GFR (MDRD) Non-Af 93 mL/min (>60) 06/07/17 07:06 BUN/Creatinine Ratio 16.7 RATIO (10-20) 06/07/17 07:06 Glucose 108 mg/dL (74-106) H 06/07/17 07:06 Assessment/Plan: Psychotropic Medications: Unnecessary Medications: Bowel Regimen: - Provider Comments Provider responsibility: Provider responsible to enter orders to implement recommendations Provider Comments to Recommendations by Pharmacy: Agree
[2017-06-07] MEDS: Tuberculin,Purif.prot.deriv. 50 TU/ML Vial 5 ML ID (12:23)
--- NOTE | 2017-06-07 12:25 | NURSING ---
Is currently eating lunch which is pureed with honey thick liquids, he is coughing persistently with a moist unproductive cough.
[2017-06-07 14:25] VITALS: PULSE 93; RESP 16; O2SAT 92
[2017-06-07] MEDS: Ipratropium/Albuterol Sulfate 3 ML AMPUL.NEB INHALATION ×2 (14:25→18:53)
[2017-06-07 16:00] VITALS: BP 140/84; PULSE 82; RESP 20; TEMP 37.1; O2SAT 100
[2017-06-07 17:45] VITALS: BP 140/84; PULSE 82
[2017-06-07 18:53] VITALS: PULSE 125; RESP 20
[2017-06-07] MEDS: Budesonide Respules 0.5 MG/2 ML AMPUL.NEB. INHALATION (18:53)
[2017-06-07] MEDS: Tolterodine Tartrate 2 MG CAP.SA PO (20:59)
[2017-06-07] MEDS: Amiodarone 200 MG Tablet 100 MG PO (20:59)
[2017-06-07] MEDS: Donepezil HCl 10 MG Tablet PO (20:59)
[2017-06-08] VITALS (9 sets, daily range): BP systolic 109–128; BP diastolic 82–95; PULSE 68–133; RESP 16–20; TEMP 37.1; O2SAT 92–94
[2017-06-08] MEDS: APIXABAN 5 MG TABLET PO ×2 (04:47→18:27)
[2017-06-08] MEDS: Amox/Clavulanate 875 MG Tablet PO ×2 (04:47→18:27)
[2017-06-08] MEDS: Memantine Hydrochloride 10 MG Tablet PO ×2 (04:47→18:27)
[2017-06-08] MEDS: Allopurinol 300 MG Tablet PO (04:48)
[2017-06-08] MEDS: dilTIAZem CD 120 MG Capsule PO ×2 (04:48→18:27)
[2017-06-08] MEDS: Ascorbic Acid 500 MG Tablet PO (04:48)
[2017-06-08] MEDS: Levothyroxine 50 MCG Tablet PO (04:48)
[2017-06-08] MEDS: Senna/Docusate Sodium 1 Tablet PO ×2 (04:48→18:27)
[2017-06-08] MEDS: Lisinopril 10 MG Tablet PO (04:48)
[2017-06-08] MEDS: Metoprolol Tartrate 50 MG Tablet PO ×2 (04:49→18:27)
[2017-06-08] MEDS: Budesonide Respules 0.5 MG/2 ML AMPUL.NEB. INHALATION ×2 (06:45→18:20)
[2017-06-08] MEDS: Ipratropium/Albuterol Sulfate 3 ML AMPUL.NEB INHALATION ×2 (06:45→18:20)
[2017-06-08] MEDS: Cyanocobalamin 500 MCG Tablet 1000 MCG PO (09:16)
--- NOTE | 2017-06-08 09:18 | NURSING ---
THIS NURSE ASKED PT HOW BEHIND HIS EARS FELT, PT STATED THEY WERE SORE. APPLIED EAR PROTECTORS TO O2 TUBING. REPORTED TO KIERSTEN JAIN
--- NOTE | 2017-06-08 11:13 | CASEMGMT ---
Insurance Clinical information faxed. Pending continued stay approval at this time. Auth#[id number] Shantelle MCKINNON, DISPATCHER SERVICE CHIEF
[2017-06-08] MEDS: Tolterodine Tartrate 2 MG CAP.SA PO (21:16)
[2017-06-08] MEDS: Amiodarone 200 MG Tablet 100 MG PO (21:16)
[2017-06-08] MEDS: Donepezil HCl 10 MG Tablet PO (21:16)
[2017-06-09] MEDS: dilTIAZem CD 120 MG Capsule PO (05:18)
[2017-06-09 05:19] VITALS: BP 128/64; PULSE 61
[2017-06-09] MEDS: Ascorbic Acid 500 MG Tablet PO (05:19)
[2017-06-09] MEDS: Senna/Docusate Sodium 1 Tablet PO ×2 (05:19→17:43)
[2017-06-09] MEDS: Metoprolol Tartrate 50 MG Tablet PO (05:19)
[2017-06-09] MEDS: Levothyroxine 50 MCG Tablet PO (05:19)
[2017-06-09] MEDS: APIXABAN 5 MG TABLET PO ×2 (05:19→17:43)
[2017-06-09] MEDS: Amox/Clavulanate 875 MG Tablet PO ×2 (05:19→17:43)
[2017-06-09] MEDS: Lisinopril 10 MG Tablet PO (05:19)
[2017-06-09] MEDS: Allopurinol 300 MG Tablet PO (05:19)
[2017-06-09] MEDS: Memantine Hydrochloride 10 MG Tablet PO ×2 (05:19→17:43)
[2017-06-09 06:45] VITALS: PULSE 45; RESP 22; O2SAT 93
[2017-06-09] MEDS: Cyanocobalamin 500 MCG Tablet 1000 MCG PO (08:44)
--- NOTE | 2017-06-09 15:16 | CHAPLAIN ---
Type of Pastoral Visit _x__ Initial Visit ___ Follow-up Visit ___ On-call Visit ___ General Patient Visit ___ Spiritual Assessment ___ Family Conference ___ Bereavement ___ Rapid Response ___ Code Blue ___ Other (describe below) Pastoral Care Referral From _x__ Patient ___ Family ___ Nurse ___ Physician ___ Rehab Therapist ___ [employer] Director ___ Other (describe below) Sacrament/Intervention _x__ Active listening ___ Anointing ___ Amish ___ Bereavement ___ Communion ___ Patricia exploration ___ ___ Life review ___ Prayer ___ Reconciliation ___ Sacrament of Sick ___ Supportive presence ___ Wedding ___ Other (describe below) Pastoral Comments patient was sleeping but his was with him; talked about his prognosis which is not good but that pt is doing his best and is eating well; speaks of good family although they experienced of a son two years ago; 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
[2017-06-09 16:00] VITALS: BP 92/67; PULSE 50; RESP 18; TEMP 36.4; O2SAT 98
--- NOTE | 2017-06-09 17:05 | NURSING ---
DR BENNETT UPDATED ON PT BP 92/67 HR 50. NEW ORDER TO DECREASE LOPRESSOR TO 25MG BID AND STOP CARDIZEM, HOLD 6PM DOSE LOPRESSOR TONIGHT.
[2017-06-09 21:14] VITALS: PULSE 51; O2SAT 95
--- NOTE | 2017-06-09 21:20 | NURSING ---
Patient's BP 116/[address] Jorgensen notified of this. Orders given to hold Cordarone 100 mg tonight.
[2017-06-09] MEDS: Donepezil HCl 10 MG Tablet PO (21:23)
[2017-06-09] MEDS: Tolterodine Tartrate 2 MG CAP.SA PO (21:23)
[2017-06-10] VITALS (9 sets, daily range): BP systolic 117–151; BP diastolic 71–82; PULSE 52–68; RESP 20–62; TEMP 36.5; O2SAT 92–96
[2017-06-10] MEDS: Lisinopril 10 MG Tablet PO (04:59)
[2017-06-10] MEDS: Amox/Clavulanate 875 MG Tablet PO ×2 (04:59→17:35)
[2017-06-10] MEDS: Ascorbic Acid 500 MG Tablet PO (04:59)
[2017-06-10] MEDS: Senna/Docusate Sodium 1 Tablet PO ×2 (04:59→17:40)
[2017-06-10] MEDS: APIXABAN 5 MG TABLET PO ×2 (04:59→17:35)
[2017-06-10] MEDS: Memantine Hydrochloride 10 MG Tablet PO ×2 (04:59→17:39)
[2017-06-10] MEDS: Levothyroxine 50 MCG Tablet PO (05:00)
[2017-06-10] MEDS: Allopurinol 300 MG Tablet PO (05:00)
[2017-06-10] MEDS: Cyanocobalamin 500 MCG Tablet 1000 MCG PO (08:34)
[2017-06-10] MEDS: Metoprolol Tartrate 50 MG Tablet PO (08:35)
[2017-06-10] MEDS: Metoprolol Tartrate 25 MG Tablet PO ×2 (08:41→17:39)
--- NOTE | 2017-06-10 15:11 | CASEMGMT ---
Insurance Continued stay denied with a last cover day of 06/12/17 and resident to discharge or financial responsibility to begin on 06/13/17. Auth#[id number] Shantelle MCKINNON, STRUCTURAL MANAGER
--- NOTE | 2017-06-10 15:12 | CASEMGMT ---
Plan of care meeting held. Resident present as well as resident family. This social work job titles communicating that continued stay has been denied by insurance with a last cover day of 06/12/17 and resident to discharge or financial responsibility to begin on 06/13/17. Resident and resident family not agreeable to insurance decision. This social work job titles educating resident and resident family on appeal process. Resident family deciding to appeal. Resident family planning to initiate appeal. This social work job titles broached topic of discharge plan in the event that resident does not win appeal, resident family voicing that resident would transition to another facility as resident is unable to afford this facility. Resident first choices would be [facility] and second choice would be [facility]. This current facility also recommending for resident to continue with skilled services as resident has not been on the unit for more then a week and is benefiting from the therapy/nursing care. Support given. Telephone call to [facility]. [facility] reporting to not have an opening at this time. Telephone call to [facility]. Voicemail left for [facility]. Proposed discharge date: 06/13/17 pending appeal. Will continue to follow. Shantelle JOHNSONW, MANAGER OPERATIONS
--- NOTE | 2017-06-10 15:31 | NURSING ---
Pt returned from therapy his pulse Ox was 80% Oxygen increased to 4 L and Pt pulse ox now 96%. Dai BURCH aware will continue to monitor
--- NOTE | 2017-06-10 16:27 | CASEMGMT ---
Social Work Telephone call from [facility], Edna Bishop reporting to have an opening and to be able to review clinicals. Clinical information faxed. Resident and resident family aware that resident will be paying private pay in whatever facility they discharge to. Resident family reporting to be able to afford other facilities and to not need a medicaid application at this time. Support given. Proposed discharge date: 06/13/17 pending appeal. Shantelle MCKINNON, METALLURGICAL SPECIALIST
--- NOTE | 2017-06-10 19:51 | PCM.TXEXTCAR ---
- Diet 06/06/17 18:00 Diet: Regular Diet Food consistency:: Puree Liquid Consistency:: Regular/Thin Dietary Modifications:: Pureed Diet Is pt able to select menu?: No - Routine Orders/Code Status Suppository Type: Dulcolax 10mg Suppository Frequency: Daily PRN Code Status: [facility] - Wound(s) Right Knee Wound Type: Scabbed area - Therapies Weight Bearing: Weight bearing as tolerated Extremity Affected:: Bilateral Lower Physical Therapy: Eval and Treat Occupational Therapy: Eval and Treat Speech Therapy: Eval and Treat - Problem/Diagnosis (1) Shortness of breath Status: Acute Current Visit: Yes (2) Hypoxia Status: Acute Current Visit: Yes (3) Aspiration pneumonia Status: Acute Current Visit: Yes (4) Dysphagia Status: Acute Current Visit: Yes (5) Alzheimers disease Status: Chronic Current Visit: Yes (6) Gout Status: Chronic Current Visit: Yes (7) Thoracic aortic aneurysm Status: Chronic Current Visit: Yes (8) Dysthymia Status: Chronic Current Visit: Yes (9) Atrial fibrillation Status: Chronic Current Visit: Yes (10) Overactive bladder Status: Chronic Current Visit: Yes (11) Coronary artery disease Status: Chronic Current Visit: Yes (12) Influenza B Status: Chronic Comment: diagnosed 05/25/17 and received 5 days of Tamiflu Current Visit: No (13) CAP (community acquired pneumonia) Status: Acute Current Visit: No (14) Hyperlipidemia Status: Chronic Current Visit: No (15) Hypothyroidism Status: Chronic Current Visit: No (16) Hypertension Status: Chronic Current Visit: No - Allergies/Procedures Done in Hospital Allergies/Adverse Reactions: Allergies No Known Allergies Allergy (Verified 06/02/17 11:32) - Type of Care/Length of Stay Estimated LOS: More Than 30 Days Type of Care Needed: Intermediate Rehab Potential: Fair Prognosis: Fair - Additional Orders/Day of Discharge Day of Discharge: 06/13/17 - Dietary and Speech Recommendations Dietitian Recommendations/Changes: Will provide magic cup or ensure pudding with meals for increased nutrition if consumed - Follow Up Care Primary Care Physician: Gerson Jorgensen Chi, MD [Primary Care Provider] - Please follow up with your Primary Care Physician in: 1 week. Please Follow Up With: Dr. Oscar
--- NOTE | 2017-06-10 19:53 | PCM.DC.SUM ---
Discharge Date and Diagnosis - Problem List Patient Problems: Active and Suspected Problems (Last Updated 04/20/17 @ 15:56 by Kecia Fernandez) Shortness of breath (Acute) Hypoxia (Acute) Aspiration pneumonia (Acute) Dysphagia (Acute) Date of Admission: 06/06/17 Date of Discharge: 06/13/17 - Primary Discharge Diagnosis Active and Suspected Problems (Last Updated 04/20/17 @ 15:56 by Kecia Fernandez) Shortness of breath (Acute) Hypoxia (Acute) Aspiration pneumonia (Acute) Dysphagia (Acute) - Secondary Discharge Diagnosis Chronic Problems (Last Updated 04/20/17 @ 15:56 by Kecia Fernandez) Alzheimers disease (Chronic) Gout (Chronic) Thoracic aortic aneurysm (Chronic) Dysthymia (Chronic) Atrial fibrillation (Chronic) Overactive bladder (Chronic) Coronary artery disease (Chronic) Influenza B (Chronic) diagnosed 05/25/17 and received 5 days of Tamiflu Chronic anticoagulation (Chronic) Abnormal EKG (Chronic) Thoracic aortic aneurysm, without rupture (Chronic) Paroxysmal atrial fibrillation (Chronic) Hyperlipidemia (Chronic) Dementia (Chronic) Hypothyroidism (Chronic) Hypertension (Chronic) Chronic atrial fibrillation (Chronic) Hospital Course and Treatment Imaging Results: 06/06/17 18:00 Diet: Regular Diet Food consistency:: Puree Liquid Consistency:: Regular/Thin Dietary Modifications:: Pureed Diet Is pt able to select menu?: No Operations: None Procedures: None Summary of Care Provided: The patient is a 82 year old Male with below past medical history significant for Alzheimer's Disease, hospitalized for aspiration pneumonia after treatment for influenza B, failed modified barium swallow, declined PEG tube, admitted to TCU with debility, here for rehabilitation, strengthening, speech therapy, prior to disposition determination, may consider hospice referral in near future. [] Discharge to [facility], intermediate level of care, continue PT, OT, ST. Consider hospice referral if resident develops recurrent aspiration pneumonia. Discharge Diet: - - Pureed, thin liquids. Discharge Activity: Return to Normal Activity, May Shower, Use Walker Weight Bearing Status: Weight bearing as tolerated Call your doctor if you observe: Fever of 101 or Higher, Inability to urinate, Inability to have a bowel movement, Shortness of breath, Chest pain, Uncontrolled pain Home Medications: Medications to take at Discharge Allopurinol [Zyloprim] 300 mg PO DAILY 09/23/15 Amiodarone HCl 100 mg PO QHS 09/23/15 Tolterodine Tartrate [Detrol] 2 mg PO QHS 09/23/15 Apixaban [Eliquis] 5 mg PO BID 12/08/16 Lisinopril [Zestril] 10 mg PO DAILY 02/17/17 nitroglycerin 0.4 mg sublingual tablet 0.4 mg SUBLINGUAL Q5M PRN 04/08/17 ascorbic acid (vitamin C) 500 mg tablet 500 mg PO QDAY 04/16/17 cholecalciferol (vitamin D3) 1,000 unit capsule 1,000 unit PO ONCE 04/16/17 Memantine HCl/Donepezil HCl [Namzaric 28 mg-10 mg Capsule] 1 each PO QHS 04/29/17 Metoprolol Tartrate 50 mg PO BID 06/06/17 Acetaminophen [Tylenol] 1,000 mg PO Q8H PRN PRN tablet 06/10/17 Bisacodyl [Dulcolax] 10 mg RECTAL DAILY PRN suppos. 06/10/17 Cyanocobalamin [Vitamin B12] 1,000 mcg PO DAILY@0800 tablet 06/10/17 Ipratropium/Albuterol Sulfate [Duoneb] 3 ml INHALATION Q6HWA.RT ampul.neb 06/10/17 Levothyroxine [Synthroid] 50 mcg PO DAILY@0600 tablet 06/10/17 Polyethylene Glycol 3350 [Miralax] 17 gm PO DAILY packet 06/10/17 Primary Care Physician: Gerson Jorgensen Chi, MD [Primary Care Provider] - Please follow up with your Primary Care Physician in: 1 week. Please Follow Up With: Dr. Oscar When: 2 weeks. Disposition: Asstd Living/Non-Skill [place] Minutes spent on discharge:: 35 Patient Condition:: Poor Medical Necessity - Tobacco Use Smoking Status: Never smoker Tobacco Use: Non-smoker Meaningful Use Info Meaningful Use Diagnoses (Choose all that apply): None applicable
[2017-06-10] MEDS: Tolterodine Tartrate 2 MG CAP.SA PO (20:08)
[2017-06-10] MEDS: Amiodarone 200 MG Tablet 100 MG PO (20:08)
[2017-06-10] MEDS: Donepezil HCl 10 MG Tablet PO (20:08)
[2017-06-11] VITALS (7 sets, daily range): BP systolic 115–127; BP diastolic 65–81; PULSE 42–67; RESP 16–28; TEMP 36.5; O2SAT 93–96
[2017-06-11] MEDS: Memantine Hydrochloride 10 MG Tablet PO ×2 (05:20→17:32)
[2017-06-11] MEDS: Senna/Docusate Sodium 1 Tablet PO ×2 (05:20→17:32)
[2017-06-11] MEDS: Allopurinol 300 MG Tablet PO (05:21)
[2017-06-11] MEDS: Ascorbic Acid 500 MG Tablet PO (05:21)
[2017-06-11] MEDS: APIXABAN 5 MG TABLET PO ×2 (05:22→17:32)
[2017-06-11] MEDS: Levothyroxine 50 MCG Tablet PO (05:22)
[2017-06-11] MEDS: Amox/Clavulanate 875 MG Tablet PO (05:22)
[2017-06-11] MEDS: Metoprolol Tartrate 25 MG Tablet PO (06:39)
[2017-06-11] MEDS: Lisinopril 10 MG Tablet PO (06:39)
[2017-06-11] MEDS: Cyanocobalamin 500 MCG Tablet 1000 MCG PO (08:37)
[2017-06-11] MEDS: Ipratropium/Albuterol Sulfate 3 ML AMPUL.NEB INHALATION ×2 (13:30→19:57)
--- NOTE | 2017-06-11 16:14 | CASEMGMT ---
Social Work Telephone call from [facility]. Resident lost appeal. Spoke with resident and resident family in room. Resident and resident family deciding to discharge to [facility] and then may pay private pay for physical therapy. Emotional support given. [facility] reporting to be able to accept resident. Will fax discharge information and PASRR results when obtained. Transfer form initiated. PASRR completed and faxed to [facility], waiting response. Telephone call to [facility], Carmen - [phone]. Carmen planning to meet with resident and resident family on 06/12/17 @ 10:30am. Clinical information faxed to: [phone]. Telephone call to [facility]. Transportation set up for 06/13/17 @ 10:00am. Transportation form completed and placed with resident discharge information. Both [facility] are aware of discharge date and time. Resident family agreeable to discharge date and plan as well. Support given. Proposed discharge date: 06/13/17 PLAN: Discharge to [facility] [place] [place] with hospice services through [facility]. Shantelle JOHNSONW, SCIENCE MANAGER
--- NOTE | 2017-06-11 17:54 | NURSING ---
Patient's HR 42, metoprolol held. Dr. Jorgenesn made aware, NO to d/c metoprolol and amiodarone.
[2017-06-11] MEDS: Tolterodine Tartrate 2 MG CAP.SA PO (20:24)
[2017-06-11] MEDS: Donepezil HCl 10 MG Tablet PO (20:24)
[2017-06-12] MEDS: Ascorbic Acid 500 MG Tablet PO (05:25)
[2017-06-12] MEDS: Senna/Docusate Sodium 1 Tablet PO ×2 (05:26→16:07)
[2017-06-12] MEDS: APIXABAN 5 MG TABLET PO ×2 (05:26→16:06)
[2017-06-12] MEDS: Lisinopril 10 MG Tablet PO (05:26)
[2017-06-12] MEDS: Allopurinol 300 MG Tablet PO (05:26)
[2017-06-12] MEDS: Memantine Hydrochloride 10 MG Tablet PO ×2 (05:26→16:06)
[2017-06-12] MEDS: Levothyroxine 50 MCG Tablet PO (05:26)
[2017-06-12 06:38] VITALS: PULSE 48; RESP 18; O2SAT 98
[2017-06-12] MEDS: Ipratropium/Albuterol Sulfate 3 ML AMPUL.NEB INHALATION ×3 (06:38→19:00)
--- NOTE | 2017-06-12 08:20 | US_ITS ---
STUDY: SUPERFICIAL ULTRASOUND - LEFT FOREARM. REASON FOR EXAM: Male, 82 years old. Palpable abnormality. TECHNIQUE: A superficial ultrasound was performed with real-time and static cobb-scale imaging. COMPARISON: None. FINDINGS: Imaging of the palpable abnormality was obtained. There is a well-defined 4.1 cm x 1.8 cm x 1.1 cm slightly echogenic nodule at the palpable site. This may represent a lipoma. Tissue diagnosis is recommended for further evaluation. US/Ext Non Vasc Limited/Soft Tiss IMPRESSION: The palpable abnormality corresponds to a 4.1 cm x 1.7 x 1.1 cm. This most likely represents a fat containing mass. A biopsy recommended for further evaluation. Electronically Signed: Brian Steinberg MD at 13:35 EDT Tel [phone], Service support ,
[2017-06-12] MEDS: Cyanocobalamin 500 MCG Tablet 1000 MCG PO (09:02)
--- NOTE | 2017-06-12 09:03 | NURSING ---
Addendum entered by Irena Andersen 06/12/17 13:52: Dr. Jorgensen reviewed ulltra sound report, NNO Original Note: Dr. Jorgensen aware of wt loss. Also assessed bump on LFA, N.O. received, pt updated and will updated family.
--- NOTE | 2017-06-12 09:06 | NURSING ---
Pt Peg tube placement verified, 20ml of residual noted. tube feeding to gravity with no problems. patient tolerated well and is currently sleeping with daughter at bedside.
--- NOTE | 2017-06-12 10:51 | NURSING ---
Hospice here to meet with pt and family
--- NOTE | 2017-06-12 12:48 | PCA ---
patients supervised him with lunch today
--- NOTE | 2017-06-12 13:03 | CASEMGMT ---
Social Work Received results from [facility]. Orders and [facility] faxed to [facility] at [facility]. Phone call to [facility] and d/c plan confirmed. [facility] met with pt and family today and papers were signed. Hospice services to begin tomorrow once pt arrives at [facility]. PRATIBHA Luevano
[2017-06-12 13:19] VITALS: PULSE 50; RESP 20
[2017-06-12 14:59] VITALS: BP 100/58; PULSE 68; RESP 20; TEMP 37.1; O2SAT 100
--- NOTE | 2017-06-12 15:53 | CASEMGMT ---
BIMS and PHQ9 interviews completed on this date for MDS assessment PRATIBHA Luevano
[2017-06-12 19:00] VITALS: PULSE 51; RESP 18
[2017-06-12] MEDS: Tolterodine Tartrate 2 MG CAP.SA PO (22:13)
[2017-06-12] MEDS: Donepezil HCl 10 MG Tablet PO (22:13)
[2017-06-12] MEDS: Menthol/Lanolin/Calamine/Znox 113 GM Tube 1 APPLIC TOPICAL (22:13)
[2017-06-13] MEDS: Polyethylene Glycol 3350 17 GM PACKET PO (06:23)
[2017-06-13] MEDS: APIXABAN 5 MG TABLET PO (06:23)
[2017-06-13] MEDS: Levothyroxine 50 MCG Tablet PO (06:24)
[2017-06-13] MEDS: Ascorbic Acid 500 MG Tablet PO (06:24)
[2017-06-13] MEDS: Senna/Docusate Sodium 1 Tablet PO (06:24)
[2017-06-13] MEDS: Lisinopril 10 MG Tablet PO (06:24)
[2017-06-13] MEDS: Memantine Hydrochloride 10 MG Tablet PO (06:24)
[2017-06-13] MEDS: Menthol/Lanolin/Calamine/Znox 113 GM Tube 1 APPLIC TOPICAL (06:26)
[2017-06-13] MEDS: Allopurinol 300 MG Tablet PO (06:26)
[2017-06-13 07:25] VITALS: PULSE 60; RESP 18; O2SAT 94
[2017-06-13] MEDS: Ipratropium/Albuterol Sulfate 3 ML AMPUL.NEB INHALATION (07:25)
[2017-06-13] MEDS: Cyanocobalamin 500 MCG Tablet 1000 MCG PO (08:55)
[2017-06-13 09:07] VITALS: BP 84/48; PULSE 61; RESP 16; TEMP 37.4; O2SAT 95
[2017-06-13 09:24] VITALS: PULSE 52; RESP 18; O2SAT 95
[2017-06-13 10:15] VITALS: BP 92/60; PULSE 52; RESP 18; TEMP 36.9; O2SAT 95
--- NOTE | 2017-06-13 10:15 | NURSING ---
report called to [facility].
--- NOTE | 2017-06-14 12:28 | MDS.RN ---
Pain interview for courtney 06/13/17 completed on 06/11/17
--- NOTE | 2017-06-15 11:58 | CASEMGMT ---
Addendum entered by Chinyere Yanes 06/24/17 22:42: Original Note: Insurance Notified insurance of resident discharge on 06/13/[address] [facility]. Auth#[id number] Shantelle MCKINNON, [employer]
== END 2017-06-13 10:19 | disposition intermediate care facility (04) | DRG 947 ==
PROVIDERS: Admitting Provider Family Medicine Geriatric Medicine; Family Provider Family Medicine Geriatric Medicine; PCP Family Medicine Geriatric Medicine; Visit Provider Family Medicine Geriatric Medicine
DX: R53.81 Other malaise (principal); J69.0 Pneumonitis due to inhalation of food and vomit; G30.9 Alzheimer's disease, unspecified; F02.80 Dementia in other diseases classified elsewhere, unspecified severity, without behavioral disturbance, psychotic disturbance, mood disturbance, and anxiety; N32.81 Overactive bladder; I25.10 Atherosclerotic heart disease of native coronary artery without angina pectoris; E55.9 Vitamin D deficiency, unspecified; M10.9 Gout, unspecified; R13.10 Dysphagia, unspecified; E78.5 Hyperlipidemia, unspecified; E03.9 Hypothyroidism, unspecified; I48.0 Paroxysmal atrial fibrillation; Z79.01 Long term (current) use of anticoagulants; I10 Essential (primary) hypertension; Z79.899 Other long term (current) drug therapy
CPT/HCPCS: 36415; 76882; 80048; 85025; 92507; 92526; 92610; 94640; 97110; 97162; 97166; 97530; 97535

== ENCOUNTER 2017-06-23 18:45 | Inpatient (IN) | payer MEDICARE, SELFPAY ==
[2017-06-23] VITALS (12 sets, daily range): BP systolic 86–122; BP diastolic 57–89; PULSE 118–143; RESP 18–28; TEMP 36.8–38.2; O2SAT 95–100; BMI 20.9; BMI 20.1
--- NOTE | 2017-06-23 19:04 | EKG12_ITS ---
Test Reason : FEVER Blood Pressure : / mmHG Vent. Rate : 137 BPM Atrial Rate : 141 BPM P-R Int : 000 ms QRS Dur : 098 ms QT Int : 274 ms P-R-T Axes : 000 031 009 degrees QTc Int : 413 ms Atrial fibrillation Abnormal ECG Confirmed by BERYL AYON MD ([id number]), mapping editor JUAN JOSÉ REYNOLDS ([id number] on 06/26/2017 3:33:00 PM Referred By: RA Confirmed By:BERYL AYON MD
--- NOTE | 2017-06-23 19:06 | ED.VISSUMM ---
- ER Visit Summary Date of Service: 06/23/17 Chief Complaint: Fever History of Present Illness: The patient is a 82 M presenting with fever. This was noted at the assisted living today. He had a temperature up to 102.3. He was recently admitted for aspiration pneumonia. During that admission he failed a cookie swallow test. He declined PEG tube and was put on a pur?ed liquid diet. He was admitted to rehab and was discharged on 06/13/2017. He was not discharged on antibiotics. Family states on Thursday he had a choking episode. Today he developed a fever and worsening cough. Physical Examination: Vitals are stable. Temperature 100.8, heart rate 139, respiratory 24. 100% on 3 L alert no acute distress. HEENT exam dry mucous membranes Neck is supple. Lungs are diminished bilaterally. Heart is irregular and tachycardic Abdomen is soft nontender nondistended. Extremities are unremarkable. Skin is warm and dry. No focal neurologic deficit. Remainder of exam is unremarkable. Emergency Department Course and Treatment: Patient is given IV fluids, Tylenol. EKG is A. fib rate of 137. Heart rate improved to 110. Chest x-ray shows bilateral pleural effusions have decreased in size since May. Redemonstration of diffuse interstitial and alveolar opacities throughout the right lung and left lung base, likely infectious considering the findings are new compared to April 2017. CT or follow-up to resolution is recommended to exclude underlying mass. CBC shows a hemoglobin 10.5. Chemistries show glucose 195, BUN 30, creatinine 1.36. Previous creatinine was 0.84. Urinalysis pending. Troponin is negative. Lactic acid 2.6. Blood cultures were sent. He is given Rocephin and zithromax for healthcare acquired pneumonia. Discussed with Dr. Cosme for admission. Disposition: Admission Impression: HCAP, severe sepsis, Afib with RVR This note was generated with [employer] dictation software. It may contain incorrect words, spelling, and punctuation that were not noted in review of the chart prior to signing ED Disposition - Plan for ED Patient: Disposition: Acute Care Hospital [facility] Chief Complaint: Fever
[2017-06-23] MEDS: Acetaminophen 500 MG Tablet 1000 MG PO (19:21)
[2017-06-23] MEDS: 0.9% Normal Saline 1,000 ML 1000 ML IV (19:22)
--- NOTE | 2017-06-23 19:30 | RAD_ITS ---
XR Chest 1 View INDICATION: SOB, COUGH AND FEVER COMPARISON: June 06, 2017 , May 18, 2017 TECHNIQUE: Portable chest x-ray FINDINGS: The bilateral pleural effusions have decreased in size. There is a redemonstration of extensive interstitial and alveolar opacities throughout the right lung and at the left lung base, not significantly changed compared to May 2017 and new compared to April 2017. Heart size is mildly enlarged. RAD/Chest 1 View (Portable) IMPRESSION: Bilateral pleural effusions have decreased in size since May. Redemonstration of diffuse interstitial and alveolar opacities throughout the right lung and left lung base, likely infectious considering the findings are new compared to April 2017. CT or follow-up to resolution is recommended to exclude underlying mass. at 1955 Reported and signed by: Evangelina Lozano MD Electronically Signed: Evangelina Lozano MD at 19:53 EDT Tel , Service support ,
[2017-06-23 19:41] LABS: Absolute Lymphocyte Count 0.56 X10^3/ul (0.83-4.51); Absolute Neutrophil Count 9.6 X10^3/uL (2.0-7.7); Basophil# 0.02 X10^3/uL; Basophil% 0.2 % (0-1); Eosinophil# 0.03 X10^3/uL; Eosinophils% 0.3 % (0-5); Hematocrit 33.8 % (40-54); Hemoglobin 10.5 g/dl (13.0-16.5); Lymphocyte # 0.56 X10^3/ul (4.0); Lymphocyte % 5.1 % (19-41); Mean Corp Hgb Conc 31.1 g/gl (32-36); Mean Corpuscular Hgb 29.8 pg (27.0-32.0); Mean Platelet Vol. 10.5 fl (6.2-12.0); Monocyte# 0.64 X10^3/uL; Monocyte% 5.9 % (0-10); Neutrophil # 9.62 X10^3/uL (2.7-7.7); Neutrophil % 88.2 % (47-70); Platelet Count 207 K/mm3 (150-450); RBC Distribution Width CV 16.5 % (11.6-14.6); RBC Distribution Width SD 57.2 fl (35.1-43.9); Red Blood Count 3.52 M/mm3 (4.6-6.2); White Blood Count 10.9 K/mm3 (4.4-11.0)
[2017-06-23 19:42] LABS: Differential Indicated SCAN CRITERIA MET; POSITIVE COUNT NO; POSITIVE DIFFERENTIAL YES; POSITIVE MORPHOLOGY NO
[2017-06-23 19:58] LABS: Anion Gap 7 (5-15); BUN 30 mg/dL (7-18); BUN/Creat Ratio 22.1 RATIO (10-20); Chloride 104 mmol/L (98-107); Creatinine, Serum 1.36 mg/dL (0.70-1.30); Differential Comment SCANNED; EST Glomerular Filtration Rate 53 mL/min (>60); Est Glom Filt Rate - Afr Amer 65 mL/min (>60); Estimated Creatinine Clearance 41.38 ml/min; Glucose 195 mg/dL (74-106); Potassium 4.4 mmol/L (3.5-5.1); Sodium Level 139 mmol/L (136-145)
[2017-06-23 20:00] LABS: Bacteria 0 SEEN /hpf (None Seen); Red Blood Cells-Urine 0 SEEN /hpf (0-5); Squamous Epithelial Cells - UA 0 SEEN /hpf (0-5); White Blood Cells 0 SEEN /hpf (0-5)
[2017-06-23 20:07] LABS: Lactic Acid 2.6 mmol/L (0.4-2.0)
[2017-06-23 20:09] LABS: Color, Urine Yellow (Yellow); Glucose, Dipstick Normal (Normal); Ketone-Dipstick Negative (Negative); Leukocyte Esterase-Dipstick Negative /ul (Negative); Nitrite-Dipstick Negative (Negative); Occult Blood-Urine 25 /ul (Negative); Protein-Dipstick 15 mg/dl (Negative); Specific Gravity, Urine 1.025 (1.002-1.030); Urine Bilirubin Dipstick Negative (Negative); Urine Clarity Clear (Clear); Urine Urobilinogen Normal (Normal)
--- NOTE | 2017-06-23 20:09 | ED.RN ---
LAB CALLED TO REPORT LACTIC ACID 2.6, AND RN MADE AWARE.
[2017-06-23 20:23] LABS: Hyaline Cast 0-5 SEEN /lpf (0-5); Mucous, Urine 1+ /hpf (<or=2+)
[2017-06-23] MEDS: 0.9% Normal Saline 1,000 ML 999 ML IV (20:42)
[2017-06-23] MEDS: Ceftriaxone 1 GM/50 ML BAG IV (20:42)
--- NOTE | 2017-06-23 20:48 | PCM.HP.STD ---
Problem List (1) Alzheimers disease Status: Chronic (2) Gout Status: Chronic (3) Thoracic aortic aneurysm Status: Chronic (4) Dysthymia Status: Chronic (5) Atrial fibrillation Status: Chronic (6) Hyperlipidemia Status: Chronic (7) Dementia Status: Chronic (8) Hypothyroidism Status: Chronic (9) Hypertension Status: Chronic Qualifiers: History of Present Illness Date of Admission: 06/23/17 Chief Complaint: Fever The patient is a 82 year old M with multiple medical comorbidities as mentioned above [facility] fever. Reportedly, his temperature was 102.6 Fahrenheit at the [facility] and his niece mentioned that his blood pressure was borderline according to the staff at the [facility]. His mentioned that he had a bad choking episode this past Thursday [facility] after he ate and since then, he has been having dry cough. The patient himself is demented and was not able to provide good history. He denied chest pain or shortness of breath. He denied cough or sputum production. Denied abdominal pain, nausea or vomiting. He was admitted last month in May, for aspiration pneumonia and he was discharged to the TCU. He was [facility] from T[facility] He has been having issues with difficulty swallowing and recurrent aspiration. According to his , the patient himself and his refused PEG tube. He has a history of chronic atrial fibrillation and he has been on metoprolol for rate control but he is not on anticoagulation at this time. He has a history of dementia with baseline disorientation and he has been on memantine/donepezil. He has a history of stage III chronic kidney disease and his creatinine has been fluctuating between 1-1.3 mg/dL. Most recently, his creatinine has been around 0.8-1 mg/dL and his admission creatinine today is 1.36. In the emergency department, the patient was in A. fib with RVR, heart rate has been around 130s, blood pressure was stable, had a spike of low-grade fever and his pulse ox was 100% on 3 L. His routine blood work was remarkable for hemoglobin of 10.5 g/dL which is chronic, creatinine of 1.36. Troponin was negative. Lactic acid was 2.6. Urinalysis revealed clear urine, negative for nitrite and leukocyte esterase, no WBCs and no bacteria seen. EKG revealed A. fib with RVR, heart rate in the 130s without acute ischemic changes. Chest x-ray revealed heterogenous opacity involving the whole right lung but actually is improving compared to the previous chest x-ray from May,. He is being admitted for recurrent aspiration pneumonia with severe sepsis as well as A. fib with RVR. Past Medical History Past Medical History (Chronic Problems): Chronic Problems (Last Updated 06/23/17 @ 20:22 by Christa Cosme MD) Pulmonary nodule, right (Chronic) Alzheimers disease (Chronic) Gout (Chronic) Thoracic aortic aneurysm (Chronic) Dysthymia (Chronic) Atrial fibrillation (Chronic) Chronic anticoagulation (Chronic) Thoracic aortic aneurysm, without rupture (Chronic) Hyperlipidemia (Chronic) Abnormal chest CT (Chronic) multiple stable nodules on CT chest in May 2017 and a stable ascending aortic aneurysm Dementia (Chronic) Hypothyroidism (Chronic) Hypertension (Chronic) Chronic atrial fibrillation (Chronic) Allergies No Known Allergies Allergy (Verified 06/02/17 11:32) Home Medications: Ambulatory Orders Medication Instructions Recorded Allopurinol [Zyloprim] 300 mg PO DAILY 09/23/15 Memantine HCl/Donepezil HCl 1 each PO QHS 04/29/17 [Namzaric 28 mg-10 mg Capsule] Metoprolol Tartrate 50 mg PO BID 06/06/17 Acetaminophen [Tylenol] 1,000 mg PO Q8H PRN PRN tablet 06/10/17 Bisacodyl [Dulcolax] 10 mg RECTAL DAILY PRN suppos. 06/10/17 Polyethylene Glycol 3350 [Miralax] 17 gm PO DAILY packet 06/10/17 Hyoscyamine Sulfate 0.125 mg PO Q4H PRN 06/23/17 Ipratropium/Albuterol Sulfate 3 ml INHALATION Q6H.RT 06/23/17 [Duoneb] Levothyroxine [Synthroid] 50 mcg PO DAILY 06/23/17 Lorazepam [Ativan] 0.5 mg PO Q4H PRN 06/23/17 Magnesium Hydroxide [Milk Of 30 ml PO DAILY PRN PRN 06/23/17 Magnesia] Morphine Sulfate 10 mg PO Q2H PRN 06/23/17 Na Phos,M-B/Na Phos,Di-Ba [Enema 118 ml RC DAILY PRN 06/23/17 Ready To Use] Nitroglycerin 0.4 mg SL Q5M PRN 06/23/17 Oxybutynin Chloride [Ditropan Xl] 5 mg PO DAILY 06/23/17 proMETHazine suppository 25 mg RECTAL Q4H PRN PRN 06/23/17 [Phenergan] proMETHazine tablet [Phenergan 25 mg PO Q4H PRN PRN 06/23/17 tablet] Surgical History: noncontributory Psychiatric History: Depression Lives: - - Assisted living. Smoking Status: Former smoker Alcohol: None Drugs: None - *Family History Maternal History Items: No pertinent history Paternal History Items: No pertinent history Review of Systems Constitutional: Reports: Anorexia, Chills, Fever, Weakness Eyes: Denies: Blurred vision, Double vision, Drainage, Redness HEENT: Denies: Difficulty Hearing, Ear Pain, Eye Pain, Nasal Congestion, Sore Throat Cardiovascular: Denies: Chest Pain, Chest Pressure, Chest Tightness, Heaviness, Light Headedness, Orthopnea, Syncope Respiratory: Reports: Cough. Denies: Pleuritic Pain, Shortness of Breath, Sputum production, Wheezing Gastrointestinal: Denies: Abdominal Pain, Constipation, Diarrhea, Nausea, Vomiting Genitourinary: Denies: Dysuria, Frequency, Hematuria Musculoskeletal: Denies: Arm Pain, Back Pain, Foot Pain Skin: Denies: Dryness, Rash Neurological: Reports: Confusion. Denies: Balance problems, Double vision, Change in Speech, Slurred speech, Headaches, Incoordination Psychiatric: Reports: Anxiety, Depression Endocrine: Denies: Change in Body Habitus, Polydipsia VTE Information - Inpt Only VTE Present on Admission: No VTE Mechan Device Prophylaxis: None VTE Pharm Prophylaxis ordered?: Yes - Physical Exam General: Alert, Cooperative, - - Minimally short of breath, disoriented. HEENT: Atraumatic, PERRLA, EOMI Oral: Moist Mucosa, No Gingival or Mucosal Lesions/ Ulcerations Neck: Supple, No JVD, Negative Carotid Bruits, Trachea Midline, Thyroid Normal Size and Texture Lungs: Diminished, Rales, Rhonchi, - - Decreased breath sounds bilateral, more on the right side with coarse crackles and rhonchi on the right side. Cardiovascular: Normal S1, Normal S2, No murmurs, PMI Normal, Irregular Rate, Tachycardic Abdomen: Bowel Sounds Present, Soft, Non Tender, Non-Distended, No Hepato-splenomegaly Extremities: No clubbing, No cyanosis, No edema Skin: No rashes, No breakdown Lymphatic: No Cervical, Supraclavicular, or Inguinal Adenopathy Neurological: Cranial nerves II-XII grossly intact, Motor Exam 5/5 strength throughout Psych/Mental Status: Normal Affect, Appropriate Vital Signs Temp Pulse Resp BP Pulse Ox 100.8 F H 135 H 28 H 122/80 H 100 06/23/17 18:50 06/23/17 19:59 06/23/17 19:59 06/23/17 19:59 06/23/17 19:59 Oxygen Flow Rate (L/min) 3 Oxygen Delivery Method Nasal Cannula Weight: 154 lb Body Mass Index (BMI) 20.9 Laboratory Tests Past 24 Hrs 06/23/17 06/23/17 06/23/17 19:19 19:19 19:19 WBC 10.9 RBC 3.52 L Hgb 10.5 L Hct 33.8 L MCV 96.0 H MCH 29.8 MCHC 31.1 L RDW 16.5 H RDW Differential 57.2 H Plt Count 207 MPV 10.5 Immature Gran % (Auto) 0.300 Neut % (Auto) 88.2 H Lymph % (Auto) 5.1 L Garfield % (Auto) 5.9 Eos % (Auto) 0.3 Baso % (Auto) 0.2 Absolute Neuts (auto) 9.6 H Absolute Lymphs (auto) 0.56 L Total Counted Not Reportable Differential Comment SCANNED Sodium 139 Potassium 4.4 Chloride 104 Carbon Dioxide 28.0 Anion Gap 7 BUN 30 H Creatinine 1.36 H Estim Creat Clear Calc 41.38 Est GFR (MDRD) Af Amer 65 Est GFR (MDRD) Non-Af 53 L BUN/Creatinine Ratio 22.1 H Glucose 195 H Lactic Acid 2.6 H Calcium 9.0 Troponin I < 0.02 Urine Color Urine Clarity Urine pH Ur Specific Mobile Urine Protein Urine Glucose (UA) Urine Ketones Urine Occult Blood Urine Nitrite Urine Bilirubin Urine Urobilinogen Ur Leukocyte Esterase Urine RBC Urine WBC Ur Squamous Epith Cells Urine Bacteria Hyaline Casts Urine Mucus 06/23/17 19:50 WBC RBC Hgb Hct MCV MCH MCHC RDW RDW Differential Plt Count MPV Immature Gran % (Auto) Neut % (Auto) Lymph % (Auto) Garfield % (Auto) Eos % (Auto) Baso % (Auto) Absolute Neuts (auto) Absolute Lymphs (auto) Total Counted Differential Comment Sodium Potassium Chloride Carbon Dioxide Anion Gap BUN Creatinine Estim Creat Clear Calc Est GFR (MDRD) Af Amer Est GFR (MDRD) Non-Af BUN/Creatinine Ratio Glucose Lactic Acid Calcium Troponin I Urine Color Yellow Urine Clarity Clear Urine pH 5.0 Ur Specific Mobile 1.025 Urine Protein 15 H Urine Glucose (UA) Normal Urine Ketones Negative Urine Occult Blood 25 H Urine Nitrite Negative Urine Bilirubin Negative Urine Urobilinogen Normal Ur Leukocyte Esterase Negative Urine RBC 0 SEEN Urine WBC 0 SEEN Ur Squamous Epith Cells 0 SEEN Urine Bacteria 0 SEEN Hyaline Casts 0-5 SEEN Urine Mucus 1+ Clinical Impression(s) from Imaging Studies Chest X-Ray 06/23/17 19:30 IMPRESSION: Bilateral pleural effusions have decreased in size since May. Redemonstration of diffuse interstitial and alveolar opacities throughout the right lung and left lung base, likely infectious considering the findings are new compared to April 2017. CT or follow-up to resolution is recommended to exclude underlying mass. at 1955 Reported and signed by: Evangelina Lozano MD Electronically Signed: Evangelina Lozano MD at 19:53 EDT Tel , Service support , Assessment/Plan This is an 82 years old male patient brought to the emergency room from assisted living because of fever, chills and dry cough in context of recent choking episode and history of chronic pneumonia and he was found to have severe sepsis secondary to recurrent pneumonia as well as A. fib with RVR. #1 recurrent aspiration pneumonia/severe sepsis: Chest x-ray reviewed as well as previous chest x-ray. Actually, chest x-ray from today revealed some improvement in the heterogenous opacity of the right lung but patient does have clinical signs of acute infection including fever, elevated lactic acid, tachycardia in context of choking episode. Lactic acid 2.7. Blood cultures drawn, IV Rocephin and Zithromax given. Patient is on IV fluids. Plan: Admit to PCU, cardiac monitoring, continue IV fluids, blood culture, urine culture, sputum culture, IV Zosyn and vancomycin, DuoNeb every 6 hours, chest physical therapy, repeat lactic acid in 3 hours, PT OT evaluation and treatment. #2 A. fib with RVR: He does have a history of chronic A. fib, this is triggered by acute infection and sepsis. Heart rate has been in the 130s and goes down to 110s. Blood pressure stable. Plan: Continue oral metoprolol, start IV metoprolol as needed. Patient is not on anticoagulation at this time. #3 dysphagia: With a current history of aspiration. According to the patient's and niece, the patient himself and his refused PEG tube in the past. Plan to treat underlying pneumonia, speech therapy evaluation and treatment. #4 chronic atrial fibrillation: Rate has been high in the 130s as above, plan as above. #5 hypertension: Blood pressure stable, continue metoprolol and IV fluids. #6 hypothyroidism: Continue levothyroxine. #7 Alzheimer's dementia: Continue memantine and donepezil. #8 stage III chronic kidney disease: Baseline creatinine has been around 1-1.3 mg/dL. Most recently, it has been normal around 1. Admission creatinine is 1.36. Plan for IV fluids as above, repeat BMP tomorrow morning. #9 DVT prophylaxis: Subcu heparin. #10 CODE STATUS: CODE STATUS is DNR CCA. Verified with the family members including , niece and [id number]. No intubations, CPR, resuscitation or mechanical ventilation. Other chronic medical problems: #1 thoracic aortic aneurysm. #2 gout. #3 hyperlipidemia. This note was generated with [employer] software. It may contain incorrect words, spelling, and punctuation that were not noted in checking the note before signing. Code Visit Inpatient E&M: 22359 Init Hosp L3
--- NOTE | 2017-06-23 20:53 | HP.PCM_ITS ---
Problem List (1) Alzheimers disease Status: Chronic (2) Gout Status: Chronic (3) Thoracic aortic aneurysm Status: Chronic (4) Dysthymia Status: Chronic (5) Atrial fibrillation Status: Chronic (6) Hyperlipidemia Status: Chronic (7) Dementia Status: Chronic (8) Hypothyroidism Status: Chronic (9) Hypertension Status: Chronic Qualifiers: History of Present Illness Date of Admission: 06/23/17 Chief Complaint: Fever The patient is a 82 year old M with multiple medical comorbidities as mentioned above presented to the emergency room from the assisted [facility] because of fever. Reportedly, his temperature was 102.6 Fahrenheit at the assisted [facility] and his niece mentioned that his blood pressure was borderline according to the staff at the [facility]. His mentioned that he had a bad choking episode this past Thursday at the assisted [facility] after he ate and since then, he has been having dry cough. The patient himself is demented and was not able to provide good history. He denied chest pain or shortness of breath. He denied cough or sputum production. Denied abdominal pain, nausea or vomiting. He was admitted last month in May, for aspiration pneumonia and he was discharged to the TCU. He was discharged from TCU on June 10, 2017 to the assisted [facility]. He has been having issues with difficulty swallowing and recurrent aspiration. According to his , the patient himself and his refused PEG tube. He has a history of chronic atrial fibrillation and he has been on metoprolol for rate control but he is not on anticoagulation at this time. He has a history of dementia with baseline disorientation and he has been on memantine/donepezil. He has a history of stage III chronic kidney disease and his creatinine has been fluctuating between 1-1.3 mg/dL. Most recently, his creatinine has been around 0.8-1 mg/dL and his admission creatinine today is 1.36. In the emergency department, the patient was in A. fib with RVR, heart rate has been around 130s, blood pressure was stable, had a spike of low-grade fever and his pulse ox was 100% on 3 L. His routine blood work was remarkable for hemoglobin of 10.5 g/dL which is chronic, creatinine of 1.36. Troponin was negative. Lactic acid was 2.6. Urinalysis revealed clear urine, negative for nitrite and leukocyte esterase, no WBCs and no bacteria seen. EKG revealed A. fib with RVR, heart rate in the 130s without acute ischemic changes. Chest x-ray revealed heterogenous opacity involving the whole right lung but actually is improving compared to the previous chest x-ray from May,. He is being admitted for recurrent aspiration pneumonia with severe sepsis as well as A. fib with RVR. Past Medical History Past Medical History (Chronic Problems): Chronic Problems (Last Updated 06/23/17 @ 20:22 by Christa Cosme MD) Pulmonary nodule, right (Chronic) Alzheimers disease (Chronic) Gout (Chronic) Thoracic aortic aneurysm (Chronic) Dysthymia (Chronic) Atrial fibrillation (Chronic) Chronic anticoagulation (Chronic) Thoracic aortic aneurysm, without rupture (Chronic) Hyperlipidemia (Chronic) Abnormal chest CT (Chronic) multiple stable nodules on CT chest in May 2017 and a stable ascending aortic aneurysm Dementia (Chronic) Hypothyroidism (Chronic) Hypertension (Chronic) Chronic atrial fibrillation (Chronic) Allergies No Known Allergies Allergy (Verified 06/02/17 11:32) Home Medications: Ambulatory Orders Medication Instructions Recorded Allopurinol [Zyloprim] 300 mg PO DAILY 09/23/15 Memantine HCl/Donepezil HCl 1 each PO QHS 04/29/17 [Namzaric 28 mg-10 mg Capsule] Metoprolol Tartrate 50 mg PO BID 06/06/17 Acetaminophen [Tylenol] 1,000 mg PO Q8H PRN PRN tablet 06/10/17 Bisacodyl [Dulcolax] 10 mg RECTAL DAILY PRN suppos. 06/10/17 Polyethylene Glycol 3350 [Miralax] 17 gm PO DAILY packet 06/10/17 Hyoscyamine Sulfate 0.125 mg PO Q4H PRN 06/23/17 Ipratropium/Albuterol Sulfate 3 ml INHALATION Q6H.RT 06/23/17 [Duoneb] Levothyroxine [Synthroid] 50 mcg PO DAILY 06/23/17 Lorazepam [Ativan] 0.5 mg PO Q4H PRN 06/23/17 Magnesium Hydroxide [Milk Of 30 ml PO DAILY PRN PRN 06/23/17 Magnesia] Morphine Sulfate 10 mg PO Q2H PRN 06/23/17 Na Phos,M-B/Na Phos,Di-Ba [Enema 118 ml RC DAILY PRN 06/23/17 Ready To Use] Nitroglycerin 0.4 mg SL Q5M PRN 06/23/17 Oxybutynin Chloride [Ditropan Xl] 5 mg PO DAILY 06/23/17 proMETHazine suppository 25 mg RECTAL Q4H PRN PRN 06/23/17 [Phenergan] proMETHazine tablet [Phenergan 25 mg PO Q4H PRN PRN 06/23/17 tablet] Surgical History: noncontributory Psychiatric History: Depression Lives: - - Assisted living. Smoking Status: Former smoker Alcohol: None Drugs: None - *Family History Maternal History Items: No pertinent history Paternal History Items: No pertinent history Review of Systems Constitutional: Reports: Anorexia, Chills, Fever, Weakness Eyes: Denies: Blurred vision, Double vision, Drainage, Redness HEENT: Denies: Difficulty Hearing, Ear Pain, Eye Pain, Nasal Congestion, Sore Throat Cardiovascular: Denies: Chest Pain, Chest Pressure, Chest Tightness, Heaviness, Light Headedness, Orthopnea, Syncope Respiratory: Reports: Cough. Denies: Pleuritic Pain, Shortness of Breath, Sputum production, Wheezing Gastrointestinal: Denies: Abdominal Pain, Constipation, Diarrhea, Nausea, Vomiting Genitourinary: Denies: Dysuria, Frequency, Hematuria Musculoskeletal: Denies: Arm Pain, Back Pain, Foot Pain Skin: Denies: Dryness, Rash Neurological: Reports: Confusion. Denies: Balance problems, Double vision, Change in Speech, Slurred speech, Headaches, Incoordination Psychiatric: Reports: Anxiety, Depression Endocrine: Denies: Change in Body Habitus, Polydipsia VTE Information - Inpt Only VTE Present on Admission: No VTE Mechan Device Prophylaxis: None VTE Pharm Prophylaxis ordered?: Yes - Physical Exam General: Alert, Cooperative, - - Minimally short of breath, disoriented. HEENT: Atraumatic, PERRLA, EOMI Oral: Moist Mucosa, No Gingival or Mucosal Lesions/ Ulcerations Neck: Supple, No JVD, Negative Carotid Bruits, Trachea Midline, Thyroid Normal Size and Texture Lungs: Diminished, Rales, Rhonchi, - - Decreased breath sounds bilateral, more on the right side with coarse crackles and rhonchi on the right side. Cardiovascular: Normal S1, Normal S2, No murmurs, PMI Normal, Irregular Rate, Tachycardic Abdomen: Bowel Sounds Present, Soft, Non Tender, Non-Distended, No Hepato- splenomegaly Extremities: No clubbing, No cyanosis, No edema Skin: No rashes, No breakdown Lymphatic: No Cervical, Supraclavicular, or Inguinal Adenopathy Neurological: Cranial nerves II-XII grossly intact, Motor Exam 5/5 strength throughout Psych/Mental Status: Normal Affect, Appropriate Vital Signs Temp Pulse Resp BP Pulse Ox 100.8 F H 135 H 28 H 122/80 H 100 06/23/17 18:50 06/23/17 19:59 06/23/17 19:59 06/23/17 19:59 06/23/17 19:59 Oxygen Flow Rate (L/min) 3 Oxygen Delivery Method Nasal Cannula Weight: 154 lb Body Mass Index (BMI) 20.9 Laboratory Tests Past 24 Hrs 06/23/17 06/23/17 06/23/17 19:19 19:19 19:19 WBC 10.9 RBC 3.52 L Hgb 10.5 L Hct 33.8 L MCV 96.0 H MCH 29.8 MCHC 31.1 L RDW 16.5 H RDW Differential 57.2 H Plt Count 207 MPV 10.5 Immature Gran % (Auto) 0.300 Neut % (Auto) 88.2 H Lymph % (Auto) 5.1 L Major % (Auto) 5.9 Eos % (Auto) 0.3 Baso % (Auto) 0.2 Absolute Neuts (auto) 9.6 H Absolute Lymphs (auto) 0.56 L Total Counted Not Reportable Differential Comment SCANNED Sodium 139 Potassium 4.4 Chloride 104 Carbon Dioxide 28.0 Anion Gap 7 BUN 30 H Creatinine 1.36 H Estim Creat Clear Calc 41.38 Est GFR (MDRD) Af Amer 65 Est GFR (MDRD) Non-Af 53 L BUN/Creatinine Ratio 22.1 H Glucose 195 H Lactic Acid 2.6 H Calcium 9.0 Troponin I < 0.02 Urine Color Urine Clarity Urine pH Ur Specific [place] Urine Protein Urine Glucose (UA) Urine Ketones Urine Occult Blood Urine Nitrite Urine Bilirubin Urine Urobilinogen Ur Leukocyte Esterase Urine RBC Urine WBC Ur Squamous Epith Cells Urine Bacteria Hyaline Casts Urine Mucus 06/23/17 19:50 WBC RBC Hgb Hct MCV MCH MCHC RDW RDW Differential Plt Count MPV Immature Gran % (Auto) Neut % (Auto) Lymph % (Auto) Major % (Auto) Eos % (Auto) Baso % (Auto) Absolute Neuts (auto) Absolute Lymphs (auto) Total Counted Differential Comment Sodium Potassium Chloride Carbon Dioxide Anion Gap BUN Creatinine Estim Creat Clear Calc Est GFR (MDRD) Af Amer Est GFR (MDRD) Non-Af BUN/Creatinine Ratio Glucose Lactic Acid Calcium Troponin I Urine Color Yellow Urine Clarity Clear Urine pH 5.0 Ur Specific [place] 1.025 Urine Protein 15 H Urine Glucose (UA) Normal Urine Ketones Negative Urine Occult Blood 25 H Urine Nitrite Negative Urine Bilirubin Negative Urine Urobilinogen Normal Ur Leukocyte Esterase Negative Urine RBC 0 SEEN Urine WBC 0 SEEN Ur Squamous Epith Cells 0 SEEN Urine Bacteria 0 SEEN Hyaline Casts 0-5 SEEN Urine Mucus 1+ Clinical Impression(s) from Imaging Studies Chest X-Ray 06/23/17 19:30 IMPRESSION: Bilateral pleural effusions have decreased in size since May. Redemonstration of diffuse interstitial and alveolar opacities throughout the right lung and left lung base, likely infectious considering the findings are new compared to April 2017. CT or follow-up to resolution is recommended to exclude underlying mass. at 1955 Reported and signed by: Evangelina Lozano MD Electronically Signed: Evangelina Lozano MD at 19:53 EDT Tel , Service support , Assessment/Plan This is an 82 years old male patient brought to the emergency room from assisted living because of fever, chills and dry cough in context of recent choking episode and history of chronic pneumonia and he was found to have severe sepsis secondary to recurrent pneumonia as well as A. fib with RVR. #1 recurrent aspiration pneumonia/severe sepsis: Chest x-ray reviewed as well as previous chest x-ray. Actually, chest x-ray from today revealed some improvement in the heterogenous opacity of the right lung but patient does have clinical signs of acute infection including fever, elevated lactic acid, tachycardia in context of choking episode. Lactic acid 2.7. Blood cultures drawn, IV Rocephin and Zithromax given. Patient is on IV fluids. Plan: Admit to PCU, cardiac monitoring, continue IV fluids, blood culture, urine culture, sputum culture, IV Zosyn and vancomycin, DuoNeb every 6 hours, chest physical therapy, repeat lactic acid in 3 hours, PT OT evaluation and treatment. #2 A. fib with RVR: He does have a history of chronic A. fib, this is triggered by acute infection and sepsis. Heart rate has been in the 130s and goes down to 110s. Blood pressure stable. Plan: Continue oral metoprolol, start IV metoprolol as needed. Patient is not on anticoagulation at this time. #3 dysphagia: With a current history of aspiration. According to the patient's and niece, the patient himself and his refused PEG tube in the past. Plan to treat underlying pneumonia, speech therapy evaluation and treatment. #4 chronic atrial fibrillation: Rate has been high in the 130s as above, plan as above. #5 hypertension: Blood pressure stable, continue metoprolol and IV fluids. #6 hypothyroidism: Continue levothyroxine. #7 Alzheimer's dementia: Continue memantine and donepezil. #8 stage III chronic kidney disease: Baseline creatinine has been around 1-1.3 mg/dL. Most recently, it has been normal around 1. Admission creatinine is 1.36. Plan for IV fluids as above, repeat BMP tomorrow morning. #9 DVT prophylaxis: Subcu heparin. #10 CODE STATUS: CODE STATUS is DNR CCA. Verified with the family members including , niece and [id number]. No intubations, CPR, resuscitation or mechanical ventilation. Other chronic medical problems: #1 thoracic aortic aneurysm. #2 gout. #3 hyperlipidemia. This note was generated with [employer] software. It may contain incorrect words, spelling, and punctuation that were not noted in checking the note before signing. Code Visit Inpatient E&M: 31766 Init Hosp L3
--- NOTE | 2017-06-23 22:04 | PCM.RX.CS ---
Consult Pharmacy has been consulted to manage selected antiobiotic: Vancomycin Type of Consult: New start Suspected Infection: Pneumonia Prior Doses of Antibiotics Received/Current Regimen: Medications Piperacillin Sod/Tazobactam Sod (Zosyn) 3.375 gm in 50 mls @ 12.5 mls/hr IV Q8 STEPHANY Discontinued Medications Azithromycin 500 mg/ Dextrose 255 mls @ 250 mls/hr IV X1 ONE Stop: 06/23/17 21:22 Last Admin: 06/23/17 21:54 Dose: Not Given Ceftriaxone Sodium (Rocephin) 1 gm in 50 mls @ 100 mls/hr IV X1 ONE Stop: 06/23/17 20:50 Last Admin: 06/23/17 20:42 Dose: 100 mls/hr Labs: Sodium 139 mmol/L (136-145) 06/23/17 19:19 Potassium 4.4 mmol/L (3.5-5.1) 06/23/17 19:19 Chloride 104 mmol/L (98-107) 06/23/17 19:19 Carbon Dioxide 28.0 mmol/L (21.0-32.0) 06/23/17 19:19 Anion Gap 7 (5-15) 06/23/17 19:19 BUN 30 mg/dL (7-18) H 06/23/17 19:19 Creatinine 1.36 mg/dL (0.70-1.30) H 06/23/17 19:19 Est GFR (MDRD) Af Amer 65 mL/min (>60) 06/23/17 19:19 Est GFR (MDRD) Non-Af 53 mL/min (>60) L 06/23/17 19:19 BUN/Creatinine Ratio 22.1 RATIO (10-20) H 06/23/17 19:19 Glucose 195 mg/dL (74-106) H 06/23/17 19:19 Weight used for dosin.3 kg Estimated Creatinine Clearance: 67.3 Goal Trough: 15-20 mcg/mL Pharmacy Plan for Drug Dosing: Pharmacy Service will continue to monitor and adjust dosing as required. Medications Vancomycin HCl 750 mg/ Sodium (Chloride) 265 mls @ 265 mls/hr IV Q18H STEPHANY Follow-Up Labs: Trough Vancomycin Labs to be done on [date and time ordered]: 06/26/17 @ 1000
[2017-06-23] MEDS: 0.9% Normal Saline 1,000 ML 100 ML IV (22:31)
[2017-06-23] MEDS: guaiFENesin 1,200 MG Tablet 1200 MG PO (22:32)
[2017-06-23] MEDS: Piperacil/Tazobactam 3.375 GM/50 ML ML IV (22:32)
[2017-06-23] MEDS: Heparin Injection (Vial) 5,000 UNIT/ML VIAL 5000 UNIT SC (22:44)
[2017-06-23 23:30] LABS: Reflex Lactate? Y
[2017-06-23] MEDS: Metoprolol Tartrate 50 MG Tablet PO (23:36)
[2017-06-24] VITALS (28 sets, daily range): BP systolic 74–143; BP diastolic 49–104; PULSE 74–136; RESP 12–22; TEMP 36.3–37.1; O2SAT 91–98
[2017-06-24] MEDS: Ipratropium/Albuterol Sulfate 3 ML AMPUL.NEB INHALATION ×4 (00:18→18:35)
[2017-06-24 00:40] LABS: Lactic Acid 1.5 mmol/L (0.4-2.0)
--- NOTE | 2017-06-24 00:41 | NURSING ---
notify Sonia Hodge (daughter in law) in case of emergency [phone] she will get pt's
--- NOTE | 2017-06-24 00:47 | CPS ---
pt awakened from sleep, having periods of Apnea during sleep
[2017-06-24 02:26] LABS: Bedside Glucose 165 mg/dL (70-110)
[2017-06-24] MEDS: Piperacil/Tazobactam 3.375 GM/50 ML ML IV ×3 (05:53→21:17)
[2017-06-24] MEDS: Heparin Injection (Vial) 5,000 UNIT/ML VIAL 5000 UNIT SC ×3 (05:56→21:16)
[2017-06-24] MEDS: Levothyroxine 50 MCG Tablet PO (05:56)
[2017-06-24 06:01] LABS: Absolute Lymphocyte Count 0.74 X10^3/ul (0.83-4.51); Absolute Neutrophil Count 6.5 X10^3/uL (2.0-7.7); Basophil# 0.02 X10^3/uL; Basophil% 0.3 % (0-1); Eosinophil# 0.01 X10^3/uL; Eosinophils% 0.1 % (0-5); Hematocrit 30.6 % (40-54); Hemoglobin 9.5 g/dl (13.0-16.5); Lymphocyte # 0.74 X10^3/ul (4.0); Lymphocyte % 9.7 % (19-41); Mean Corpuscular Hgb 30.5 pg (27.0-32.0); Mean Corpuscular Volume 98.4 fL (80-94); Mean Platelet Vol. 11.4 fl (6.2-12.0); Monocyte# 0.37 X10^3/uL; Monocyte% 4.9 % (0-10); Neutrophil # 6.45 X10^3/uL (2.7-7.7); Neutrophil % 84.6 % (47-70); Platelet Count 132 K/mm3 (150-450); RBC Distribution Width CV 16.3 % (11.6-14.6); RBC Distribution Width SD 55.7 fl (35.1-43.9); Red Blood Count 3.11 M/mm3 (4.6-6.2); White Blood Count 7.6 K/mm3 (4.4-11.0)
[2017-06-24 06:10] LABS: POSITIVE COUNT NO; POSITIVE DIFFERENTIAL NO; POSITIVE MORPHOLOGY NO
[2017-06-24 06:16] LABS: Anion Gap 7 (5-15); BUN 22 mg/dL (7-18); BUN/Creat Ratio 22.7 RATIO (10-20); Calcium,Total 8.1 mg/dL (8.5-10.1); Chloride 111 mmol/L (98-107); Creatinine, Serum 0.97 mg/dL (0.70-1.30); EST Glomerular Filtration Rate 79 mL/min (>60); Est Glom Filt Rate - Afr Amer 95 mL/min (>60); Estimated Creatinine Clearance 55.89 ml/min; Glucose 126 mg/dL (74-106); Potassium 4.1 mmol/L (3.5-5.1); Sodium Level 143 mmol/L (136-145)
[2017-06-24 06:30] LABS: Bedside Glucose 126 mg/dL (70-110)
[2017-06-24] MEDS: Metoprolol Tartrate 50 MG Tablet PO (08:23)
[2017-06-24] MEDS: Allopurinol 300 MG Tablet PO (08:23)
[2017-06-24] MEDS: Oxybutynin 5 MG Tablet PO (08:23)
[2017-06-24] MEDS: guaiFENesin 1,200 MG Tablet 1200 MG PO ×2 (08:23→21:18)
--- NOTE | 2017-06-24 09:56 | PCM.PN.HOSP ---
Subjective: Patient was seen and examined. Had a family meeting with the and niece with her . Patient was in hospice in the retirement and according to the , hospice services was discontinued because of insurance reasons. Discussed early on with speech therapist who expressed grave concern about recurrent aspiration pneumonia. Patient and the had earlier on refused PEG tube. Communicated this to the and the family in the room. Patient expresses a desire to eat. They are aware that this will calm with consequences of worsening respiratory status. They are comfortable with that and patient will transition to hospice on discharge Objective: Physical Exam General: Alert, Cooperative, oriented only to self, in mild respiratory distress, on 2 L of oxygen, pale, cachectic, able to complete his sentences without shortness of breath HEENT: Atraumatic, PERRLA, EOMI Oral: Moist Mucosa, No Gingival or Mucosal Lesions/ Ulcerations Neck: Supple, No JVD, Negative Carotid Bruits, Trachea Midline, Thyroid Normal Size and Texture Lungs: Diminished, Rales, Rhonchi, - - Decreased breath sounds bilateral, more on the right side with coarse crackles and rhonchi on the right side. Cardiovascular: Normal S1, Normal S2, No murmurs, PMI Normal, Irregular Rate, Tachycardic Abdomen: Bowel Sounds Present, Soft, Non Tender, Non-Distended, No Hepato-splenomegaly Extremities: No clubbing, No cyanosis, No edema Skin: No rashes, No breakdown Lymphatic: No Cervical, Supraclavicular, or Inguinal Adenopathy Neurological: Cranial nerves II-XII grossly intact, Motor Exam 5/5 strength throughout Psych/Mental Status: Normal Affect, Appropriate Vitals/I&O's: Vital Signs Temp Pulse Resp BP Pulse Ox 98.4 F 128 H 18 108/99 H 94 06/24/17 08:06 06/24/17 08:23 06/24/17 08:06 06/24/17 08:06 06/24/17 08:06 Oxygen Flow Rate (L/min) 2 Oxygen Delivery Method Nasal Cannula Weight: 67.3 kg Body Mass Index (BMI) 20.1 Intake and Output for Last 24 Hours 06/22/17 06/23/17 06/24/17 23:59 23:59 23:59 Intake Total 2290 / 2290 Balance 2290 / 2290 Laboratory Results 06/23/17 23:48: POC Glucose 165 H 06/23/17 23:55: Lactic Acid 1.5 06/24/17 05:20: Sodium 143, Potassium 4.1, Chloride 111 H, Carbon Dioxide 25.0, Anion Gap 7, BUN 22 H, Creatinine 0.97, Estim Creat Clear Calc 55.89, Est GFR (MDRD) Af Amer 95, Est GFR (MDRD) Non-Af 79, BUN/Creatinine Ratio 22.7 H, Glucose 126 H, Calcium 8.1 L 06/24/17 05:20: WBC 7.6, RBC 3.11 L, Hgb 9.5 L, Hct 30.6 L, MCV 98.4 H, MCH 30.5, MCHC 31.0 L, RDW 16.3 H, RDW Differential 55.7 H, Plt Count 132 L, MPV 11.4, Immature Gran % (Auto) 0.400, Neut % (Auto) 84.6 H, Lymph % (Auto) 9.7 L, [place] % (Auto) 4.9, Eos % (Auto) 0.1, Baso % (Auto) 0.3, Absolute Neuts (auto) 6.5, Absolute Lymphs (auto) 0.74 L, Total Counted Not Reportable 06/24/17 06:24: POC Glucose 126 H Current Medications Acetaminophen (Tylenol) 650 mg PO Q6H PRN PRN PRN Reason: FEVER Albuterol/Ipratropium (Duoneb) 3 ml INHALATION Q6H.RT [facility] Last Admin: 06/24/17 07:01 Dose: 3 ml Allopurinol (Zyloprim) 300 mg PO DAILY [facility] Last Admin: 06/24/17 08:23 Dose: 300 mg Bisacodyl (Dulcolax) 10 mg RECTAL DAILY PRN PRN Reason: Constipation Guaifenesin (Mucinex) 1,200 mg PO BID [facility] Last Admin: 06/24/17 08:23 Dose: 1,200 mg Heparin Sodium (Porcine) (Heparin Na) 5,000 unit SC Q8 [facility] Last Admin: 06/24/17 05:56 Dose: 5,000 u Hyoscyamine Sulfate (Levsin/Sl) 0.125 mg PO Q4H PRN PRN PRN Reason: SECRETIONS Sodium Chloride () 1,000 mls @ 100 mls/hr IV .Q10H [facility] Last Admin: 06/23/17 22:31 Dose: 100 mls/hr Piperacillin Sod/Tazobactam Sod (Zosyn) 3.375 gm in 50 mls @ 12.5 mls/hr IV Q8 [facility] Last Admin: 06/24/17 05:53 Dose: 12.5 mls/hr Vancomycin HCl 750 mg/ Sodium (Chloride) 265 mls @ 265 mls/hr IV Q18H [facility] Levothyroxine Sodium (Synthroid) 50 mcg PO DAILY@0600 [facility] Last Admin: 06/24/17 05:56 Dose: 50 mcg Lorazepam (Ativan) 0.5 mg PO Q4H PRN PRN Reason: ANXIETY Magnesium Hydroxide (Milk Of Magnesia) 30 ml PO DAILY PRN PRN Reason: Constipation Metoprolol Tartrate (Lopressor (Beta Flaco)) 50 mg PO BID [facility] Last Admin: 06/24/17 08:23 Dose: 50 mg Metoprolol Tartrate (Lopressor (Beta Flaco)) 5 mg IV Q6H PRN PRN PRN Reason: for HR>110, Hold for SBP<110 Ondansetron HCl (Zofran) 4 mg IV Q8H PRN PRN PRN Reason: NAUSEA Ondansetron HCl (Zofran) 4 mg IV Q8H PRN PRN PRN Reason: Nausea Oxybutynin Chloride (Ditropan) 5 mg PO DAILY [facility] Last Admin: 06/24/17 08:23 Dose: 5 mg Oxycodone HCl (Oxyir) 5 mg PO Q4H PRN PRN PRN Reason: Moderate Pain (pain scale 4-5) Polyethylene Glycol (Miralax) 17 gm PO DAILY [facility] Last Admin: 06/24/17 08:23 Dose: Not Given Sodium Chloride () 5 - 30 ml IV UD PRN PRN Reason: SALINE FLUSH Medical Necessity - Tobacco Use Smoking Status: Former smoker Assessment/Plan 82 years old male history of recurrent pneumonia, admitted from assisted living because of fever, chills and dry cough in context of recent choking episode . 1. Severe sepsis secondary to recurrent aspiration pneumonia, there is slightly improved, repeat lactic acid is 1.5, patient is still tachycardic, blood cultures are pendingon IV fluids and IV antibiotics, will continue same. 2. A. fib with RVR, rate is not controlled, on metoprolol po and as needed IV, heart rate is not controlled because of underlining sepsis also, will continue on fluids and metoprolol 3. Severe dysphagia, history of recurrent aspiration pneumonia, patient and the refused PEG tube in the past, speech therapist consulted and has kept patient n.p.o. because he is at high risk of aspiration per bedside exam. According to the family the patient wants to be started on diet. 4. Hypertension, controlled, on metoprolol. 5. hypothyroidism, on levothyroxine. 6. Alzheimer's dementia, on memantine and donepezil. 7. MACIEL on CKD stage III, due to dehydration and sepsis, improved with IV fluids, creatinine is back to baseline 8. DVT prophylaxis -Heparin SC 9. CODE STATUS- DNR CCA. 10. [facility] Code Visit Inpatient E&M: 03808 Subs Hosp L3 Procedures: 49382 Advncd Care Plan 30 Min - At the family meeting and discussed the total care plan
--- NOTE | 2017-06-24 11:43 | CASEMGMT ---
SW attended a family meeting with patient, his , his niece, physician, and Speech Therapist. Family has decided to let patient eat what he wants and return to Hospice care. Patient's niece was going to talk with patient's to make sure she understands all of this. Eboni SADLER MSW
[2017-06-24] MEDS: 0.9% Normal Saline 1,000 ML 100 ML IV ×2 (13:28→21:16)
[2017-06-24 13:56] LABS: Bedside Glucose 82 mg/dL (70-110)
[2017-06-24] MEDS: Metoprolol Tartrate 5 MG/5 ML Vial IV (15:29)
[2017-06-24] MEDS: 0.9% NaCl Peripheral Flush Adult/Peds IV (20:51)
[2017-06-24] MEDS: Digoxin 250 MCG/ML Ampul 500 MCG IV (20:51)
[2017-06-24] MEDS: Metoprolol Tartrate 100 MG Tablet PO (21:15)
[2017-06-25] VITALS (15 sets, daily range): BP systolic 86–126; BP diastolic 56–89; PULSE 72–138; RESP 16–20; TEMP 36.3–36.7; O2SAT 90–98
[2017-06-25] MEDS: Ipratropium/Albuterol Sulfate 3 ML AMPUL.NEB INHALATION ×3 (01:22→13:40)
[2017-06-25] MEDS: 0.9% NaCl Peripheral Flush Adult/Peds IV (04:42)
[2017-06-25] MEDS: Metoprolol Tartrate 5 MG/5 ML Vial IV (04:42)
[2017-06-25] MEDS: Levothyroxine 50 MCG Tablet PO (05:35)
[2017-06-25] MEDS: Heparin Injection (Vial) 5,000 UNIT/ML VIAL 5000 UNIT SC ×2 (05:35→13:10)
[2017-06-25] MEDS: Piperacil/Tazobactam 3.375 GM/50 ML ML IV ×2 (05:35→13:10)
[2017-06-25] MEDS: Polyethylene Glycol 3350 17 GM PACKET PO (09:36)
[2017-06-25] MEDS: Metoprolol Tartrate 100 MG Tablet PO (09:37)
[2017-06-25] MEDS: Allopurinol 300 MG Tablet PO (09:37)
[2017-06-25] MEDS: Digoxin 250 MCG Tablet PO (09:37)
[2017-06-25] MEDS: Oxybutynin 5 MG Tablet PO (09:37)
[2017-06-25] MEDS: guaiFENesin 1,200 MG Tablet 1200 MG PO (09:37)
--- NOTE | 2017-06-25 09:55 | CASEMGMT ---
Addendum entered by Jody Fuchs 06/25/17 12:34: Spoke with Charmaine Slade. She has spoken with pt and first choice would be for pt to go to [facility] at d/c. If they is not an option, pt will return to [facility] with hospice services from [facility]. Charmaine would prefer [facility] be used for transportation. Phone call to Caron at [facility] and they do not have beds available. Phone call to Edna at [facility] and informed pt will be returning with hospice today. Phone call to James at [facility] and clinicals faxed. [facility] will visit pt and family today at 1:30 to restart services. Phone call to Charmaine and informed of the above. She is agreeable to d/c plan. Met with pt and in room and discussed discharge plan with them. They both express understanding and agreement. SW to continue to follow for d/c planning. PRATIBHA Luevano Original Note: Social Work Phone call to pt to finalize discharge plans. Pt stating she thinks pt will return to [facility] but is uncertain about hospice. Pt hesitant to make decision and deferring to her niece Charmaine Slade ([phone]). Phone call to Charmaine and message left requesting return call for d/c planning. Phone call to Edna at [facility]. If pt returns to [facility] with hospice care pt can return to facility when medically ready. If pt family does not choose to return under hospice services, [facility] will have to check with medical staffing coordinator if they can accept back. SW to follow for d/c planning. PRATIBHA Luevano
--- NOTE | 2017-06-25 10:01 | PCM.PN.HOSP ---
Subjective: Patient was seen and examined. He is better. On 1L oxygen. Denies fever, chills, chest pain, dizziness, palpitations. Had breakfast this morning without any issues. Objective: Physical Exam General: Alert, cooperative, oriented only to self, in mild respiratory distress, on 1-2 L of oxygen, pale, cachectic, able to complete his sentences without shortness of breath HEENT: Atraumatic, PERRLA, EOMI Oral: Moist Mucosa, No Gingival or Mucosal Lesions/ Ulcerations Neck: Supple, No JVD, Negative Carotid Bruits, Trachea Midline, Thyroid Normal Size and Texture Lungs: Diminished, Rales, Rhonchi, decreased breath sounds bilateral, no crackles heard. Cardiovascular: Normal S1, Normal S2, No murmurs, PMI Normal, Irregular Rate, Tachycardic Abdomen: Bowel Sounds Present, Soft, Non Tender, Non-Distended, No Hepato-splenomegaly Extremities: No clubbing, No cyanosis, No edema Skin: No rashes, No breakdown Lymphatic: No Cervical, Supraclavicular, or Inguinal Adenopathy Neurological: Cranial nerves II-XII grossly intact, Motor Exam 5/5 strength throughout Psych/Mental Status: Normal Affect, Appropriate Vitals/I&O's: Vital Signs Temp Pulse Resp BP Pulse Ox 97.4 F L 117 H 18 111/67 98 06/25/17 08:26 06/25/17 09:37 06/25/17 08:26 06/25/17 08:26 06/25/17 08:26 Oxygen Flow Rate (L/min) 2 Oxygen Delivery Method Nasal Cannula Weight: 67.3 kg Body Mass Index (BMI) 20.1 Intake and Output for Last 24 Hours 06/23/17 06/24/17 06/25/17 23:59 23:59 23:59 Intake Total 4083 / 4083 531 / 531 Balance 4083 / 4083 531 / 531 Laboratory Results 06/24/17 11:13: POC Glucose 82 Current Medications Acetaminophen (Tylenol) 650 mg PO Q6H PRN PRN PRN Reason: FEVER Albuterol/Ipratropium (Duoneb) 3 ml INHALATION Q6H.RT [facility] Last Admin: 06/25/17 06:48 Dose: 3 ml Allopurinol (Zyloprim) 300 mg PO DAILY [facility] Last Admin: 06/25/17 09:37 Dose: 300 mg Bisacodyl (Dulcolax) 10 mg RECTAL DAILY PRN PRN Reason: Constipation Digoxin (Lanoxin) 250 mcg PO DAILY [facility] Last Admin: 06/25/17 09:37 Dose: 250 mcg Guaifenesin (Mucinex) 1,200 mg PO BID [facility] Last Admin: 06/25/17 09:37 Dose: 1,200 mg Heparin Sodium (Porcine) (Heparin Na) 5,000 unit SC Q8 [facility] Last Admin: 06/25/17 05:35 Dose: 5,000 u Hyoscyamine Sulfate (Levsin/Sl) 0.125 mg PO Q4H PRN PRN PRN Reason: SECRETIONS Sodium Chloride () 1,000 mls @ 100 mls/hr IV .Q10H [facility] Last Admin: 06/24/17 21:16 Dose: 100 mls/hr Piperacillin Sod/Tazobactam Sod (Zosyn) 3.375 gm in 50 mls @ 12.5 mls/hr IV Q8 [facility] Last Admin: 06/25/17 05:35 Dose: 12.5 mls/hr Levothyroxine Sodium (Synthroid) 50 mcg PO DAILY@0600 [facility] Last Admin: 06/25/17 05:35 Dose: 50 mcg Lorazepam (Ativan) 0.5 mg PO Q4H PRN PRN Reason: ANXIETY Magnesium Hydroxide (Milk Of Magnesia) 30 ml PO DAILY PRN PRN Reason: Constipation Metoprolol Tartrate (Lopressor (Beta Flaco)) 5 mg IV Q6H PRN PRN PRN Reason: for HR>110, Hold for SBP<110 Last Admin: 06/25/17 04:42 Dose: 5 mg Metoprolol Tartrate (Lopressor (Beta Flaco)) 100 mg PO BID [facility] Last Admin: 06/25/17 09:37 Dose: 100 mg Ondansetron HCl (Zofran) 4 mg IV Q8H PRN PRN PRN Reason: NAUSEA Ondansetron HCl (Zofran) 4 mg IV Q8H PRN PRN PRN Reason: Nausea Oxybutynin Chloride (Ditropan) 5 mg PO DAILY [facility] Last Admin: 06/25/17 09:37 Dose: 5 mg Oxycodone HCl (Oxyir) 5 mg PO Q4H PRN PRN PRN Reason: Moderate Pain (pain scale 4-5) Polyethylene Glycol (Miralax) 17 gm PO DAILY [facility] Last Admin: 06/25/17 09:36 Dose: 17 gm Sodium Chloride () 5 - 30 ml IV UD PRN PRN Reason: SALINE FLUSH Last Admin: 06/25/17 04:42 Dose: 10 ml Medical Necessity - Tobacco Use Smoking Status: Former smoker Assessment/Plan 82 years old male history of recurrent pneumonia, admitted from assisted living because of fever, chills and dry cough in context of recent choking episode . 1. Severe sepsis secondary to recurrent aspiration pneumonia, blood cultures are pending, will discharge on IV unasyn 3g q6hrly x 1 week. 2. A. fib with RVR, heart rate is fairly controlled, secondary to underlying sepsis, on an increased rate of metoprolol. 3. Severe dysphagia, history of recurrent aspiration pneumonia, patient and the refused PEG tube in the past, had family meeting, patient agreed to be in hospice with soft diet. and family aware and agree. 4. Hypertension, controlled, on metoprolol. 5. hypothyroidism, on levothyroxine. 6. Alzheimer's dementia, on memantine and donepezil. 7. MACIEL on CKD stage III, due to dehydration and sepsis, improved with IV fluids, creatinine is back to baseline 8. DVT prophylaxis -Heparin SC 9. CODE STATUS- DNR CCA. 10. Disposition: Stable DC to [facility] for [facility].
--- NOTE | 2017-06-25 12:56 | PCM.TXEXTCAR ---
- Diet 06/24/17 11:48 Diet: Regular Diet Food consistency:: Soft Liquid Consistency:: Regular/Thin Dietary Modifications:: Soft Diet Type of Dietary Supplement:: [place] Breakfast Is pt able to select menu?: No Diet Comments: Supervision; cut into bite sized peices, seated upright during intake - Routine Orders/Code Status Code Status: DNC-A - Therapies Weight Bearing: Weight bearing as tolerated Extremity Affected:: Bilateral Lower Physical Therapy: Eval and Treat Occupational Therapy: Eval and Treat Speech Therapy: Eval and Treat - Allergies/Procedures Done in Hospital Allergies/Adverse Reactions: Allergies No Known Allergies Allergy (Verified 06/02/17 11:32) Procedures: None - Type of Care/Length of Stay Estimated LOS: Convalescent Care Less Than 30 days Type of Care Needed: Skilled Rehab Potential: Good Prognosis: Good - Additional Orders/Day of Discharge Additional Orders: Hospice at detention facility Day of Discharge: 06/25/17 - Dietary and Speech Recommendations Dietitian Recommendations/Changes: Ensure Enlive w/ medpass if desired by pt and/or family- historically has not liked Ensure and prefers [place] Instant Breakfast. - Follow Up Care Primary Care Physician: Eliseo Witt MD [STAFF PHYSICIAN] -
[2017-06-25] MEDS: 0.9% Normal Saline 1,000 ML 100 ML IV (13:14)
[2017-06-25 13:17] LABS: International Normalized Ratio 1.2; Prothrombin Time (Protime)PT. 15.5 SECONDS (11.7-14.9)
--- NOTE | 2017-06-25 16:07 | NURSING ---
called report to Patsy [facility]
--- NOTE | 2017-06-25 16:09 | CASEMGMT ---
As per Edna, Ivan is asking about the IV antibiotics. SW called [facility], they state that the IV antibiotics may not be covered but family agreed to pay for them if it is not covered and they are $135. RFAN faxed discharge instructions to [facility] set up 5:30pm ambulance w/[facility]. FRAN let Ivan, bedside RN, Edna at [facility], and family in room know time. SW also let Edna at [facility] know that as per hospice, family will cover cost of antibiotics. FRAN confirmed this w/ and niece, however they state they actually just got a call from hospice and were told pt's insurance will cover the cost of the antibiotics. Family is still okay w/paying the $135 if for some reason this does not work. No further needs, pt to [facility] today on hospice at 5:30pm. FUAD Umaña, SUMMER COUNSELOR
--- NOTE | 2017-06-25 16:27 | PCM.DC.SUM ---
Discharge Date and Diagnosis Date of Admission: 06/23/17 Date of Discharge: 06/25/17 - Primary Discharge Diagnosis He has sepsis secondary to recurrent aspiration pneumonia A. fib with RVR Severe dysphagia Recurrent aspiration pneumonia Acute kidney injury - Secondary Discharge Diagnosis Chronic Problems (Last Updated 06/23/17 @ 20:22 by Christa Cosme MD) Pulmonary nodule, right (Chronic) Alzheimers disease (Chronic) Gout (Chronic) Thoracic aortic aneurysm (Chronic) Dysthymia (Chronic) Atrial fibrillation (Chronic) Chronic anticoagulation (Chronic) Thoracic aortic aneurysm, without rupture (Chronic) Hyperlipidemia (Chronic) Abnormal chest CT (Chronic) multiple stable nodules on CT chest in May 2017 and a stable ascending aortic aneurysm Dementia (Chronic) Hypothyroidism (Chronic) Hypertension (Chronic) Chronic atrial fibrillation (Chronic) Hospital Course and Treatment Imaging Results: Clinical Impression(s) from Imaging Studies Chest X-Ray 06/23/17 19:30 IMPRESSION: Bilateral pleural effusions have decreased in size since May. Redemonstration of diffuse interstitial and alveolar opacities throughout the right lung and left lung base, likely infectious considering the findings are new compared to April 2017. CT or follow-up to resolution is recommended to exclude underlying mass. at 1955 Reported and signed by: Evangelina Lozano MD Electronically Signed: Evangelina Lozano MD at 19:53 EDT Tel , Service support , Operations: None Procedures: None Summary of Care Provided: 82 years old male history of recurrent pneumonia, admitted from assisted living because of fever, chills and dry cough in context of recent choking episode. 1. Severe sepsis secondary to recurrent aspiration pneumonia, this current episode was related again to aspiration pneumonia, managed initially on IV Zosyn, blood cultures were negative, workup for community-acquired pneumonia was also negative with negative urine streptococcal and Legionella antigen. Sputum cultures showed normal respiratory latisha. Discharged on IV Unasyn for 1 more week. Midline access was placed. 2. A. fib with RVR, improved with changes in his home metoprolol with addition of as needed metoprolol IV, heart rate improved prior to discharge. 3. Severe dysphagia, history of recurrent aspiration pneumonia, patient and the refused PEG tube in the past, had family meeting, patient agreed to be in hospice with soft diet. and family aware and agree. 4. Hypertension, controlled, on metoprolol. 5. hypothyroidism, on levothyroxine. 6. Alzheimer's dementia, on memantine and donepezil. 7. MACIEL on CKD stage III, due to dehydration and sepsis, resolved, patient is at baseline Discharge Diet: No Restrictions Discharge Activity: Return to Normal Activity Home Medications: Medications to take at Discharge Allopurinol [Zyloprim] 300 mg PO DAILY 09/23/15 Bisacodyl [Dulcolax] 10 mg RECTAL DAILY PRN suppos. 06/10/17 Polyethylene Glycol 3350 [Miralax] 17 gm PO DAILY packet 06/10/17 Hyoscyamine Sulfate 0.125 mg PO Q4H PRN 06/23/17 Levothyroxine [Synthroid] 50 mcg PO DAILY 06/23/17 Lorazepam [Ativan] 0.5 mg PO Q4H PRN 06/23/17 Magnesium Hydroxide [Milk Of Magnesia] 30 ml PO DAILY PRN PRN 06/23/17 Nitroglycerin 0.4 mg SL Q5M PRN 06/23/17 proMETHazine suppository [Phenergan Suppository] 25 mg RECTAL Q4H PRN PRN 06/23/17 Oxybutynin Chloride [Ditropan Xl] 5 mg PO DAILY 06/24/17 Ampicillin Sodium/Sulbactam Na [Unasyn 3 gm Vial] 3 gm IJ [id number] #28 vial 06/25/17 Digoxin [Lanoxin] 250 mcg PO DAILY tablet 06/25/17 Guaifenesin [Mucinex] 1,200 mg PO BID PRN tablet 06/25/17 Ipratropium/Albuterol Sulfate [Duoneb] 3 ml INHALATION Q6H.RT PRN #0 06/25/17 Metoprolol Tartrate [Lopressor (beta estefany)] 100 mg PO BID tablet 06/25/17 Following Prescrptions Were Given to Patient: Ampicillin Sodium/Sulbactam Na [Unasyn 3 gm Vial] 3 gm IJ [id number] #28 vial Primary Care Physician: Eliseo Witt MD [STAFF PHYSICIAN] - Disposition: [facility] Minutes spent on discharge:: 60 Patient Condition:: Stable Medical Necessity - Tobacco Use Smoking Status: Former smoker Meaningful Use Info Meaningful Use Diagnoses (Choose all that apply): None applicable Code Visit Inpatient E&M: 68113 Disch Hosp Procedures: 75643 Advncd Care Plan 30 Min
== END 2017-06-25 18:09 | disposition hospice, inpatient (51) | DRG 871 ==
LOC: ED 20:39 → PCU 20:43
PROVIDERS: Admitting Provider Hospitalist; Emergency Provider Emergency Medicine; Family Provider Family Medicine Geriatric Medicine; PCP Family Medicine Geriatric Medicine; Visit Provider Internal Medicine
DX: A41.9 Sepsis, unspecified organism (principal); J69.0 Pneumonitis due to inhalation of food and vomit; N17.9 Acute kidney failure, unspecified; R65.20 Severe sepsis without septic shock; I48.2 Chronic atrial fibrillation; I12.9 Hypertensive chronic kidney disease with stage 1 through stage 4 chronic kidney disease, or unspecified chronic kidney disease; N18.3 Chronic kidney disease, stage 3 (moderate); E03.9 Hypothyroidism, unspecified; G30.9 Alzheimer's disease, unspecified; F02.80 Dementia in other diseases classified elsewhere, unspecified severity, without behavioral disturbance, psychotic disturbance, mood disturbance, and anxiety; E86.0 Dehydration; Z66 Do not resuscitate; Z87.891 Personal history of nicotine dependence; M10.9 Gout, unspecified; E78.5 Hyperlipidemia, unspecified; R13.10 Dysphagia, unspecified; R91.1 Solitary pulmonary nodule
CPT/HCPCS: 36415; 71045; 80048; 81001; 82962; 83605; 84484; 85025; 85610; 87040; 87070; 87086; 87205; 87449; 92526; 93005; 94640; 94667; 94668; 97110; 97162; 97166; 97530; 99285; J7030; J7040; A4216

== ENCOUNTER → 2017-07-07 11:54 | Outpatient (CLI) | payer MEDICARE, SELFPAY | PROVIDERS: Family Provider Family Medicine Geriatric Medicine; PCP Family Medicine Geriatric Medicine; Visit Provider Surgery | DX: Z01.818 Encounter for other preprocedural examination (principal) ==